=== PATIENT | female | born 2000 | race Caucasian/White ===

== ENCOUNTER 2022-12-10 16:27 | Emergency (ER) | payer OTHER, SELFPAY ==
--- NOTE | 2022-12-10 16:29 | ED.URI ---
HPI - URI/Sore Throat General Chief Complaint: Nausea/Vomiting/Diarrhea Stated Complaint: nausea,headache,upper stomach hurts Time Seen by Provider: 12/10/22 16:44 Source: patient and RN notes reviewed Mode of arrival: ambulatory Limitations: no limitations History of Present Illness HPI Narrative: 22-year-old female presents concern for headache, nausea without vomiting, epigastric discomfort. She also reports sore throat and runny nose. She reports coworkers are ill. She reports she is 9 weeks with twins, she has had issues with nausea and acid reflux, she has medications prescribed for both. She denies any significant change in her epigastric pain or nausea. She denies vomiting, diarrhea. She is concerned about working well . MD elicited complaint: sore throat Related Data Home Medications Medication Instructions Recorded Confirmed famotidine 20 mg tablet 20 mg PO DAILY 12/10/22 12/10/22 promethazine 12.5 mg tablet 12.5 mg PO DIRECTED 12/10/22 12/10/22 Allergies Allergy/AdvReac Type Severity Reaction Status Date / Time morphine Allergy Rash Verified 12/10/22 16:33 Review of Systems Review of Systems: CONSTITUTIONAL: Denies malaise, chills, sweats, or fever. EYES: Denies visual changes, redness, or discharge. ENT: Reports rhinorrhea, sore throat. Denies congestion, sinus pain, otalgia CARDIOVASCULAR: Denies chest pain, palpitations, or edema. RESPIRATORY: Denies cough. Denies dyspnea. GASTROINTESTINAL: Denies abdominal pain, vomiting, diarrhea. Reports nausea epigastric discomfort SKIN: Denies rash or itching. MUSCULOSKELETAL: Denies myalgia. NEUROLOGIC: Reports headache. All systems reviewed & are unremarkable except as noted in HPI and below PMFSH Past Medical History Medical History Asthma Bronchitis Depression Gastritis Smoker Surgical History Surgical History H/O laparoscopy RT ovary had to be fixed per Marianne History of esophagogastroduodenoscopy (EGD) Family History Family History Father , Heart problems Heart disease Mother Alive and well Social History Social History Years smoked: 4 Smoking status: Current every day smoker Tobacco type: cigarettes Second hand tobacco smoke exposure: No Alcohol intake: current Substance use: never Substance use type: does not use Living arrangements: with family Occupation/Education: occupation Gender identity (if verbalized by the patient): Female Comments At time of signature, agree with nursing past medical, surgical, social and family history. There is no relevant family history pertinent to the presenting complaint Exam Narrative: GENERAL: Well-appearing, well-nourished, and in no acute distress. HEAD: Normocephalic EYES: PERRLA, conjunctivae clear ENT: Nares clear, clear discharge. Mucous membranes moist. TM pearly chamorro with sharp light reflex bilaterally; no tragal tenderness. Oropharynx not erythematous without lesions. Tonsils not enlarged and without exudate, no drooling, no hoarseness, no trismus, uvula midline. NECK: Supple. No lymphadenopathy CHEST: Clear to auscultation, breath sounds equal. No wheezing, rhonchi, rales, or stridor. No respiratory distress, speaks in full sentences. HEART: Regular rate and rhythm. No murmur heard. SKIN: Warm, dry, no rash. NEURO: Alert and oriented x3. PSYCH: Normal mood and affect Course Course Emergency Course: Patient is aware of diagnosis, understands and agrees to treatment plan. Anticipatory guidance given. Patient agrees to follow-up as directed and is aware of reasons to seek care at the emergency department. Portions of this record may have been created with voice recognition software Level of Care: Express Care Visit Vital Signs Vital signs: Reviewed. CHERYLE - JUAN JOSE
[2022-12-10 16:37] VITALS: BP 119/64; PULSE 81; RESP 16; TEMP 36.4; O2SAT 100
== END 2022-12-10 17:03 | disposition home or self-care (01) ==
PROVIDERS: Emergency Provider Nurse Practitioner
DX: O26.891 Other specified pregnancy related conditions, first trimester (principal); R11.0 Nausea; O99.331 Smoking (tobacco) complicating pregnancy, first trimester; F17.210 Nicotine dependence, cigarettes, uncomplicated; Z3A.09 9 weeks gestation of pregnancy
CPT/HCPCS: 87081; 87880; 99213; G0463

== ENCOUNTER 2023-04-12 21:25 | Emergency (ER) | payer OTHER, SELFPAY ==
[2023-04-12 21:37] VITALS: BP 121/58; PULSE 100; RESP 20; TEMP 37.2; O2SAT 99
[2023-04-12 22:00] VITALS: BP 118/60; PULSE 97; RESP 18; O2SAT 100
--- NOTE | 2023-04-12 22:00 | PC.NURSE ---
Pt decided she wanted to leave and go to where her OB Dr Main is at [place] after eval by Dr White. Pt wanting to sign AMA and go have testing and any needed procedures done there. ERP explained risks/benefits to pt. This RN explained risks/benefits as well to pt. and she still wants to leave to go to [place] for testing. Pt did sign HIV form refusal as she states she already had that test at her OB Dr office.
--- NOTE | 2023-04-12 22:05 | PC.NURSE ---
Pt left ambulatory c S.O. and stated she would go directly to [place] for checkup. Pt has steady gait at d/c and no c/o, VSS.
--- NOTE | 2023-04-12 22:09 | ED.FEMALEGU ---
HPI - Female Genitourinary General Chief complaint: OB/Uterine Contractions Stated complaint: 27 wk , spotting, blurred vision Time Seen by Provider: 04/12/23 21:57 Source: patient and family Mode of arrival: ambulatory Limitations: no limitations History of Present Illness HPI Narrative: this is a 22-year-old female that presents with some headache and is 27 weeks with twins and heart tones elicited, there is no abdominal pain patient notes some crampy with spotting. She does have a headache and some blurry vision blood pressure is 121/58 otherwise no chest pain no shortness of breath no dysuria no fever chills Related Data Home Medications Medication Instructions Recorded Confirmed famotidine 10 mg tablet 10 mg PO DAILY 04/12/23 04/12/23 prenat.vits,kelly,[id number] 1 tablet PO DAILY 04/12/23 04/12/23 sertraline 50 mg tablet 50 mg PO DAILY 04/12/23 04/12/23 Allergies Allergy/AdvReac Type Severity Reaction Status Date / Time morphine Allergy Unknown Verified 04/12/23 21:37 Review of Systems Review of Systems: All systems reviewed & are unremarkable except as noted in HPI and below PMFSH Past Medical History Medical History 27 weeks gestation of Exam Const: General: healthy appearing Nutritional Appearance: well nourished Neck: Neck: normal visual inspection Chest: Chest palpation & inspection: normal inspection of the chest Resp: Effort & Inspection: normal respiratory effort Auscultation: clear to auscultation bilaterally Cardio: Rate: regular rate Rhythm: regular rhythm GI: GI Palp: Yes Soft to palpation : General: Yes bladder normal to palpation Skin: General skin exam: normal color Rashes: no rashes Wounds: no wounds Neuro: General: patient oriented x3 and moves all extremities Cranial nerves: Yes Nystagmus not present Speech: normal speech Extrem: General: normal to inspection Psych: Appearance: grossly normal Mental Status: mental status grossly normal Course Course Emergency Course: patient willing to sign out against medical advice and wants to go to [place] where her OBGYN is located. Vital Signs Vital signs: Vital Signs Temperature 37.2 C 04/12/23 21:37 Pulse Rate 100 04/12/23 21:37 Respiratory Rate 20 04/12/23 21:37 Blood Pressure 121/58 L 04/12/23 21:37 Pulse Oximetry 99 04/12/23 21:37 Oxygen Delivery Room Air 04/12/23 21:37 Temperature 37.2 C 04/12/23 21:37 Pulse Rate 100 04/12/23 21:37 Respiratory Rate 20 04/12/23 21:37 Blood Pressure 121/58 L 04/12/23 21:37 Pulse Oximetry 99 04/12/23 21:37 Oxygen Delivery Room Air 04/12/23 21:37 Critical Care Time Critical Care Time Critical Care Time: No Discharge Plan Discharge Clinical Impression: Vaginal spotting Headache Qualifiers: Headache type: other headache syndrome Qualified Code(s): G44.89 - Other headache syndrome Condition: Stable Prescriptions: No Action famotidine 10 mg Tablet 10 mg PO DAILY sertraline 50 mg Tablet 50 mg PO DAILY Vitamin Tablet 1 tablet PO DAILY Follow-up/Referrals: UNKNOWN,DOCTOR [Non-Staff] - Time of Disposition: 22:13
== END 2023-04-12 22:05 | disposition left against medical advice (07) ==
PROVIDERS: Emergency Provider Emergency Medicine; PCP Obstetrics & Gynecology
DX: O46.92 Antepartum hemorrhage, unspecified, second trimester (principal); O26.892 Other specified pregnancy related conditions, second trimester; G44.89 Other headache syndrome; Z3A.27 27 weeks gestation of pregnancy
CPT/HCPCS: 99281

== ENCOUNTER 2023-04-12 22:49 | Observation (INO) | payer OTHER, SELFPAY ==
[2023-04-12] VITALS (12 sets, daily range): BP systolic 109–117; BP diastolic 61–71; PULSE 78–98; O2SAT 98–100; BMI 28.0
--- NOTE | 2023-04-12 23:19 | OBADM ---
This patient, Marianne Fox, admitted to the OB room OB Post 116 for observation. Patient/family oriented to hospital policies and general routines including ID bracelet, bed and alarms, visiting hours, pain management, procedures, bathroom and other care routines, personal items, smoking policy, room service/diet, and visiting hours. Patient/Family are encouraged to report perceived risks to care and to ask questions if they do not understand what they are told or what they should do.
[2023-04-13 00:11] LABS: Appearance Urine Clear (Clear); Bacteria Urine None Seen /hpf; Bilirubin Urine Negative (Negative); Blood Urine 1+ (Negative); Color Urine Yellow (Yellow); Glucose Urine UA Negative (Negative); Ketones Urine Negative (Negative); Leukocyte Esterase Ur 2+ LEU/UL (Negative); Nitrate Urine Negative (Negative); Non Pathogenic Casts 0-2; Protein Urine Negative (Negative); RBC Urine 0-2 /hpf (0-2); Specific Grav Ur 1.014 (1.001-1.035); Squamous Epithelial Cell Urine Few /hpf (Few)
[2023-04-13 00:17] LABS: Add Urine Microscopic? YES
--- NOTE | 2023-04-13 00:18 | PC.NURSE ---
Dr Snyder called via senior grant writer and informed of patient arrival after being seen in [facility] with c/o headache, spotting, and blurred vision. Vital signs stable, CAT1 tracings from fetus A and B, and UA results given to provider. Patient stated headache was 5-6/10 on arrival and now rates it 2/10 and has no spotting at this time. Orders to discharge patient home with macrobid 100mg BID x7 days and to keep regularly scheduled appointment with Dr. Main.
[2023-04-13] MEDS: NITROFURANTOIN MONOHYD MACROCR 100 MG CAP PO (00:44)
--- NOTE | 2023-05-06 23:12 | PM.OBTRLD ---
OB - Triage/Final Diagnosis Visit Information Comments/Additional reasons for admission: I have assessed the risk for this patient, Marianne Fox, and determined that she would benefit from observation care. Evaluation Laboratory results: Laboratory Tests 04/12/23 23:36 Urine Color Yellow Urine Appearance Clear Urine pH 7.0 Ur Specific Porter 1.014 Urine Protein Negative Urine Glucose (UA) Negative Urine Ketones Negative Ur Blood (Man) 1+ H Urine Nitrate Negative Urine Bilirubin Negative Urine Urobilinogen 1.0 Leukocyte Esterase Rfl 2+ H Urine RBC 0-2 Urine WBC 11-20 H Ur Squamous Epith Cells Few Urine Bacteria None seen Urine Casts 0-2 Final Diagnosis (1) Vaginal bleeding: Code(s): N93.9 - Abnormal uterine and vaginal bleeding, unspecified Status: Acute
== END 2023-04-13 00:38 | disposition home or self-care (01) ==
PROVIDERS: Obstetrics & Gynecology; Admitting Provider Obstetrics & Gynecology; Visit Provider Obstetrics & Gynecology
DX: O46.92 Antepartum hemorrhage, unspecified, second trimester (principal); N93.9 Abnormal uterine and vaginal bleeding, unspecified; Z3A.27 27 weeks gestation of pregnancy
CPT/HCPCS: 81001; 87086; A9270; G0378; G0379

== ENCOUNTER 2023-04-23 17:22 | Observation (INO) | payer OTHER, MEDICAID, SELFPAY ==
[2023-04-23] VITALS (13 sets, daily range): BP systolic 109; BP diastolic 62; PULSE 90–106; O2SAT 98–100
[2023-04-23] MEDS: NIFEdipine 30 MG TAB.ER.24 PO (18:38)
[2023-04-23] MEDS: TERBUTALINE SULFATE 1 MG/ML VIAL 0.25 MG SUB-Q (18:39)
--- NOTE | 2023-04-23 20:24 | OBADM ---
This patient, Marianne Fox, admitted to the OB room OB Post 113 for observation. Patient/family oriented to hospital policies and general routines including ID bracelet, bed and alarms, visiting hours, pain management, procedures, bathroom and other care routines, personal items, smoking policy, room service/diet, and visiting hours. Patient/Family are encouraged to report perceived risks to care and to ask questions if they do not understand what they are told or what they should do.
--- NOTE | 2023-05-17 08:35 | PM.OBTRLD ---
OB - Triage/Final Diagnosis Visit Information Comments/Additional reasons for admission: I have assessed the risk for this patient, Marianne Fox, and determined that she would benefit from observation care. Final Diagnosis (1) Spotting: Code(s): N92.0 - Excessive and frequent menstruation with regular cycle Status: Acute
== END 2023-04-23 20:37 | disposition home or self-care (01) ==
PROVIDERS: Admitting Provider Obstetrics & Gynecology; Visit Provider Obstetrics & Gynecology
DX: O26.853 Spotting complicating pregnancy, third trimester (principal); Z3A.29 29 weeks gestation of pregnancy
CPT/HCPCS: 96372; A9270; G0378; G0379; J3105

== ENCOUNTER 2023-04-24 13:31 | Observation (INO) | payer OTHER, SELFPAY ==
[2023-04-24 13:50] VITALS: BP 112/66; PULSE 116
[2023-04-24 14:00] VITALS: BP 113/68; PULSE 91
[2023-04-24 14:15] VITALS: BP 114/67; PULSE 105
[2023-04-24] MEDS: TERBUTALINE SULFATE 1 MG/ML VIAL 0.25 MG SUB-Q (14:24)
[2023-04-24 14:40] VITALS: BMI 31.2
[2023-04-24 14:56] LABS: Appearance Urine Cloudy (Clear); Bacteria Urine 1+ /hpf; Bilirubin Urine Negative (Negative); Color Urine Yellow (Yellow); Glucose Urine UA Negative (Negative); Ketones Urine Negative (Negative); Leukocyte Esterase Ur 3+ LEU/UL (NEGATIVE); Need Manual Microscopic Reviewed; Nitrate Urine Negative (Negative); Non Pathogenic Casts 0-2; Protein Urine Negative (Negative); RBC Urine 0-2 /hpf (0-2); Specific Grav Ur 1.007 (1.001-1.035); Squamous Epithelial Cell Urine Many /hpf (Few); Urobilinogen Urine 0.2 mg/dL (<2.0); WBC Urine >100 /hpf (0-3); pH Urine 7.5 (5.0-9.0)
[2023-04-24 15:00] LABS: Add Urine Microscopic? YES
[2023-04-24 15:45] LABS: Fetal Fibronectin Negative
[2023-04-24] MEDS: FLUCONAZOLE 100 MG TABLET PO (16:04)
--- NOTE | 2023-04-30 08:18 | P.PNOB_ITS ---
OB - Triage/Final Diagnosis Visit Information Comments/Additional reasons for admission: I have assessed the risk for this patient, Marianne Fox, and determined that she would benefit from observation care. Evaluation Laboratory results: Laboratory Tests 04/24/23 14:22 Urine Color Yellow Urine Appearance Cloudy H Urine pH 7.5 Ur Specific Franklin 1.007 Urine Protein Negative Urine Glucose (UA) Negative Urine Ketones Negative Ur Blood (Man) Non-hemolyzed trace Urine Nitrate Negative Urine Bilirubin Negative Urine Urobilinogen 0.2 Ur Leukocyte Esterase 3+ H Add Ur Microanalysis Reviewed Urine RBC 0-2 Urine WBC >100 H Ur Squamous Epith Cells Many H Urine Bacteria 1+ H Urine Casts 0-2 Fibronectin Negative Final Diagnosis (1) Twin : Code(s): O30.009 - Twin , unspecified number of placenta and unspecified number of amniotic sacs, unspecified trimester Status: Acute (2) contractions: Code(s): O47.00 - False labor before 37 completed weeks of gestation, unspecified trimester Status: Acute
== END 2023-04-24 16:10 | disposition home or self-care (01) ==
PROVIDERS: Admitting Provider Obstetrics & Gynecology; Visit Provider Obstetrics & Gynecology
DX: O30.003 Twin pregnancy, unspecified number of placenta and unspecified number of amniotic sacs, third trimester (principal); O47.03 False labor before 37 completed weeks of gestation, third trimester; Z3A.29 29 weeks gestation of pregnancy
CPT/HCPCS: 81001; 82731; 87086; 96372; A9270; G0378; G0379; J3105

== ENCOUNTER 2023-05-04 07:41 | Outpatient (CLI) | payer OTHER, SELFPAY ==
[2023-05-04 08:15] VITALS: BP 113/69; PULSE 97
[2023-05-04 08:52] LABS: Appearance Urine Turbid (Clear); Bacteria Urine 1+ /hpf; Bilirubin Urine Negative (Negative); Blood Urine Negative (Negative); Color Urine Yellow (Yellow); Glucose Urine UA Negative (Negative); Ketones Urine Negative (Negative); Leukocyte Esterase Ur 3+ LEU/UL (NEGATIVE); Nitrate Urine Negative (Negative); Non Pathogenic Casts 0-2; Protein Urine Negative (Negative); RBC Urine 0-2 /hpf (0-2); Squamous Epithelial Cell Urine Moderate /hpf (Few); Urobilinogen Urine 0.2 mg/dL (<2.0); WBC Urine 51-100 /hpf (0-3)
[2023-05-04 09:08] LABS: Add Urine Microscopic? YES
--- NOTE | 2023-05-04 09:12 | PC.NURSE ---
Dr Snyder notified of neg rom plus results, occa contractions with some uterine irritability, reassuring fht's and UA results, Ok to DC home with RX for Macrobid.
== END 2023-05-04 09:20 | disposition home or self-care (01) ==
LOC: ANHOBOP 07:47 → ANHOBPP 07:49
PROVIDERS: Obstetrics & Gynecology; Visit Provider Obstetrics & Gynecology
DX: O41.90X0 Disorder of amniotic fluid and membranes, unspecified, unspecified trimester, not applicable or unspecified (principal); Z3A.00 Weeks of gestation of pregnancy not specified
CPT/HCPCS: 59025; 81001; 84112; 87086; 99199

== ENCOUNTER 2023-05-09 13:15 | Emergency (ER) | payer OTHER, SELFPAY ==
[2023-05-09 13:15] VITALS: BP 128/74; PULSE 85; RESP 20; TEMP 36.8; O2SAT 100
--- NOTE | 2023-05-09 13:41 | ED.GENADULT ---
HPI - General Adult General Chief complaint: Extremity Problem,Nontraumatic Stated complaint: hip pain Time Seen by Provider: 05/09/23 13:30 Source: patient Mode of arrival: ambulatory Limitations: no limitations History of Present Illness HPI narrative: 22-year-old female A0, 31 weeks with twins presents to the ER with -- right hip pain -- pain in right lateral thigh no trauma the patient has had routine checkups including an ultrasound which have been unremarkable. Onset (ago): day(s) Location: right and lower extremity Radiation: non-radiation Severity: mild Quality: aching Pain Consistency: constant Relieving factors: none Exacerbating factors: movement Associated symptoms: denies other symptoms Treatments prior to arrival: none Related Data Home Medications Medication Instructions Recorded Confirmed famotidine 10 mg tablet 10 mg PO DAILY 04/12/23 05/09/23 prenat.vits,kelly,iad-inyc-vrwnz 1 tablet PO DAILY 04/12/23 05/09/23 sertraline 50 mg tablet 50 mg PO DAILY 04/12/23 05/09/23 Allergies Allergy/AdvReac Type Severity Reaction Status Date / Time morphine AdvReac Nausea Verified 05/09/23 13:23 Review of Systems Review of Systems: All systems reviewed & are unremarkable except as noted in HPI and below Constitutional: Constitutional: Reports as per HPI and Reports no additional constitutional complaints Eyes: Eyes: Reports as per HPI and Reports no additional eye complaints ENT: Reports system reviewed and no additional complaints, except as documented and Reports as per HPI Cardiovascular: Cardiovascular: Reports as per HPI and Reports no additional cardiovascular complaints Respiratory: Respiratory: Reports as per HPI and Reports no additional respiratory complaints Gastrointestinal: Gastrointestinal: Reports as per HPI and Reports no additional gastrointestinal complaints Genitourinary: Genitourinary: Reports no additional female genitourinary complaints and Reports as per HPI Musculoskeletal: Musculoskeletal: Reports no additional musculoskeletal complaints and Reports as per HPI Integumentary/Breasts: Skin/Breast: Reports system reviewed and no additional complaints, except as docu and Reports as per HPI Neurologic: Reports system reviewed and no additional complaints, except as documented and Reports as per HPI Psychiatric: Psychiatric: Reports no additional psychiatric complaints and Reports as per HPI Endocrine: Endocrine: Reports no additional endocrine complaints and Reports as per HPI Hematologic/Lymphatic: Hematologic/Lymphatic: Reports no additional hematologic/lymphatic complaints and Reports as per HPI Allergic/Immunologic: Allergic/Immunologic: Reports no additional allergic/immunologic complaints and Reports as per HPI [facility] Past Medical History Medical History 27 weeks gestation of Exam Const: General: cooperative and comfortable HENMT: Head: normal to inspection, normocephalic and atraumatic Ears: hearing grossly normal bilaterally Face/Nose/Sinus: Normal external nose present Face and sinus: normal facial exam Mouth: Yes Normal oral and palatal mucosa present and Yes tongue normal Teeth and gingiva: dentition normal and gingiva normal Throat: posterior oropharynx normal Eyes: General: appearance normal, both eyes and all related structures Visual Preston: normal visual preston by confrontation Alignment and Position: position normal Eyelids: eyelids normal Conjunctivae: conjunctivae normal Sclera: sclerae normal Cornea: corneas normal Pupils: Equal, round and reactive pupils present Neck: Neck: normal visual inspection and full ROM Chest: Chest palpation & inspection: normal inspection of the chest Resp: Effort & Inspection: normal respiratory effort Auscultation: clear to auscultation bilaterally Cardio: Jugular venous distension: no JVD Palpation: normal PMI Rate: regular
--- NOTE | 2023-05-09 13:47 | PC.NURSE ---
HEART TONES OBTAINED ON BOTH BABY 1 AND BABY 2. BOTH ARE ACTIVE AND MOVING. MOTHER SIGNS REFUSAL OF HIV TESTING.
[2023-05-09 13:56] LABS: Appearance Urine Clear (Clear); Bilirubin Urine Negative (Negative); Blood Urine 1+ (Negative); Color Urine Light Yellow (Yellow); Glucose Urine UA Negative (Negative); Ketones Urine Negative (Negative); Leukocyte Esterase Ur 3+ LEU/UL (Negative); Nitrate Urine Negative (Negative); Protein Urine Negative (Negative); Urobilinogen Urine 0.2 mg/dL (0.2-1.0); pH Urine 7.5 (5.0-8.0)
[2023-05-09 14:02] LABS: Add Urine Microscopic? YES
[2023-05-09 14:03] LABS: Bacteria Urine 2+ /hpf; Squamous Epithelial Cell Urine Moderate /hpf (Few); WBC Urine 16-20 /hpf (0-3)
--- NOTE | 2023-05-11 13:58 | PC.NURSE ---
URINE CULTURE REVIEWED, NO GROWTH NOTED. NO ACTION NEEDED
== END 2023-05-09 14:15 | disposition home or self-care (01) ==
PROVIDERS: Emergency Provider Internal Medicine Critical Care Medicine; PCP Obstetrics & Gynecology
DX: O30.003 Twin pregnancy, unspecified number of placenta and unspecified number of amniotic sacs, third trimester (principal); O26.893 Other specified pregnancy related conditions, third trimester; G57.11 Meralgia paresthetica, right lower limb; R60.0 Localized edema; M25.551 Pain in right hip; Z3A.31 31 weeks gestation of pregnancy; Z79.899 Other long term (current) drug therapy
CPT/HCPCS: 81001; 87086; 99283

== ENCOUNTER 2023-05-11 14:26 | Outpatient (CLI) | payer OTHER, SELFPAY ==
[2023-05-11 14:55] VITALS: BP 106/65; PULSE 91
[2023-05-11 15:00] VITALS: BP 102/69; PULSE 89
[2023-05-11 15:15] VITALS: BP 101/65; PULSE 93
[2023-05-11 15:30] VITALS: BP 104/58; PULSE 90
[2023-05-11 15:45] VITALS: BP 115/65; PULSE 89
--- NOTE | 2023-05-11 15:50 | PC.NURSE ---
1540: RN phone Dr. Main RN reported Blood pressures, patient's complaints of headache, blurred vision, and high BP at home with wrist cuff. Order discharge patient home with instructions to take Tylenol at home for headache and with instructions on when to return to the hospital
[2023-05-11 16:20] VITALS: BP 106/65; PULSE 88
== END 2023-05-11 16:00 | disposition home or self-care (01) ==
LOC: ANHOBOP 14:33 → ANHOBPP 14:34
PROVIDERS: Visit Provider Obstetrics & Gynecology
DX: O13.9 Gestational [pregnancy-induced] hypertension without significant proteinuria, unspecified trimester (principal)
CPT/HCPCS: 59025; 99199

== ENCOUNTER 2023-05-13 11:06 | Outpatient (CLI) | payer OTHER, MEDICAID, SELFPAY ==
--- NOTE | 2023-05-13 11:06 | OBADM ---
This patient, Marianne Fox, admitted to the OB room Labor/Delivery/Recovery 106 for observation. Patient/family oriented to hospital policies and general routines including ID bracelet, bed and alarms, visiting hours, pain management, procedures, bathroom and other care routines, personal items, smoking policy, room service/diet, and visiting hours. Patient/Family are encouraged to report perceived risks to care and to ask questions if they do not understand what they are told or what they should do.
[2023-05-13 11:34] VITALS: BP 120/73; PULSE 111
[2023-05-13 12:07] LABS: Appearance Urine Cloudy (Clear); Bacteria Urine None Seen /hpf; Bilirubin Urine Negative (Negative); Blood Urine Trace (Negative); Color Urine Yellow (Yellow); Glucose Urine UA Negative (Negative); Ketones Urine Negative (Negative); Leukocyte Esterase Ur 3+ LEU/UL (Negative); Nitrate Urine Negative (Negative); Non Pathogenic Casts 0-2; Protein Urine Negative (Negative); RBC Urine 0-2 /hpf (0-2); Specific Grav Ur 1.009 (1.001-1.035); Squamous Epithelial Cell Urine Moderate /hpf (Few); Urobilinogen Urine 0.2 mg/dL (<2.0); WBC Urine 21-50 /hpf; pH Urine 7.5 (5.0-9.0)
[2023-05-13 12:15] LABS: Add Urine Microscopic? YES
--- NOTE | 2023-05-13 12:48 | PC.NURSE ---
Carrie updated on this pt. Urine sent and reported to provider. CNM order LR bolus and 2g Rocephin IV. SVE and updated provider once completed.
[2023-05-13] MEDS: LACTATED RINGERS 1,000 ML 999 ML IV CONT (13:13)
[2023-05-13] MEDS: cefTRIAXone 2 GM/NS 100 ML 2 GM/100 ML BAG IVPB (13:36)
[2023-05-13 13:46] VITALS: BMI 29.5
[2023-05-13 14:34] VITALS: BP 114/60; PULSE 83
[2023-05-13] MEDS: NIFEdipine 30 MG TAB.ER.24 PO (14:42)
--- NOTE | 2023-05-13 15:41 | PC.NURSE ---
CNM on the unit reviewing tracing and uterine activity. Pt requesting to go home. Discharge order received. Pt instructed to drink more water, rest and take medication if needed.
== END 2023-05-13 15:56 | disposition home or self-care (01) ==
LOC: ANHLDR 15:42 → ANHOBOP 05-14 10:41 → ANHLDR 05-14 10:41
PROVIDERS: Advanced Practice Midwife; Visit Provider Obstetrics & Gynecology
DX: O42.90 Premature rupture of membranes, unspecified as to length of time between rupture and onset of labor, unspecified weeks of gestation (principal)
CPT/HCPCS: 81001; 84112; 87086; 96374; 99199; A9270; J0696; J7120

== ENCOUNTER 2023-05-17 20:39 | Outpatient (CLI) | payer OTHER, SELFPAY ==
[2023-05-17 21:14] VITALS: BP 117/71; PULSE 96
[2023-05-17 21:16] VITALS: BP 118/59; PULSE 89
[2023-05-17 21:30] VITALS: BP 106/63; PULSE 87
== END 2023-05-17 22:20 | disposition home or self-care (01) ==
LOC: ANHOBOP 21:02 → ANHLDR 21:02
PROVIDERS: Visit Provider Obstetrics & Gynecology
DX: O42.913 Preterm premature rupture of membranes, unspecified as to length of time between rupture and onset of labor, third trimester (principal); Z3A.34 34 weeks gestation of pregnancy
CPT/HCPCS: 59025; 84112; 99199

== ENCOUNTER 2023-05-21 23:10 | Observation (INO) | payer OTHER, SELFPAY ==
[2023-05-21] VITALS (8 sets, daily range): BP systolic 120–132; BP diastolic 73–76; PULSE 72–87; O2SAT 99–100
[2023-05-21] MEDS: DEXTROSE 5%/LACTATED RINGERS 1,000 ML 100 ML IV CONT (23:40)
[2023-05-21] MEDS: TERBUTALINE SULFATE 1 MG/ML VIAL 0.25 MG SUB-Q (23:42)
[2023-05-22] VITALS (36 sets, daily range): BP systolic 113–136; BP diastolic 62–86; PULSE 70–134; TEMP 36.3; O2SAT 98–100; BMI 32.2
[2023-05-22] MEDS: NIFEdipine 10 MG CAPSULE 30 MG PO (00:55)
[2023-05-22] MEDS: TERBUTALINE SULFATE 1 MG/ML VIAL 0.25 MG SUB-Q (00:56)
[2023-05-22] MEDS: MAGNESIUM SULF 6 GM/WATER150ML 6 GM/150 ML BAG IVPB (02:51)
[2023-05-22] MEDS: LACTATED RINGERS 1,000 ML 75 ML IV CONT (02:52)
[2023-05-22] MEDS: MAGNESIUM SULF 20GM/WATER500ML 500 ML 50 MG IV CONT ×2 (03:24→10:42)
--- NOTE | 2023-05-22 08:35 | PM.IMHP ---
H&P: HPI History of Present Illness Date/Time: 05/22/23 08:35 Chief Complaint: Painful contractions Narrative: this patient is a 22-year-old 2 para 0010 at 33 weeks and 1 day gestation with twins. The twins are dichorionic diamniotic. Her was complicated by a Previous delivery, HSV 1 , asthma, anemia, anxiety, electronic cigarette use. It is now complicated by labor. She presented with painful contractions that became progressively closer together. Patient was initially resistant to any treatment and wanted to be transferred. She was a considered unstable at that time. Ultimately she agreed to shots of terbutaline and then subsequently magnesium sulfate. She did show cervical change. She was initially 1 cm became two and more effaced. She is receiving a dose of steroids this morning at this time , 05/22/2023 at 0838. She is on continuous Mag at 2 g an hour and received a bolus of 6 g. the plan has been to perform repeat on the patient. She is known to [facility], she has been receiving high risk care from [facility] at [facility] . she will be transferred to [facility]. Review of Systems Review of Systems: All systems reviewed & are unremarkable except as noted in HPI and below Constitutional: Constitutional: Denies chills, Denies fatigue, Denies fever(s) and Denies weakness Eyes: Eyes: Denies blurry vision, Denies change in vision, Denies loss of peripheral vision, Denies loss of vision, Denies other visual disturbances and Denies eye pain ENT: Denies vertigo, Denies dizziness, Denies hearing loss, Denies mouth pain, Denies nasal obstruction, Denies neck mass and Denies neck pain Cardiovascular: Cardiovascular: Denies chest pain, Denies diaphoresis, Denies syncope, Denies leg edema and Denies dyspnea Respiratory: Respiratory: Denies chest congestion, Denies cough, Denies hemoptysis, Denies dyspnea and Denies wheezing Gastrointestinal: Gastrointestinal: Denies abdominal pain, Denies constipation, Denies diarrhea, Denies nausea and Denies vomiting Genitourinary: Genitourinary: Denies hematuria, Denies change in libido, Denies nocturia, Denies genital lesions, Denies flank pain and Denies urinary urgency Musculoskeletal: Musculoskeletal: Denies abnormal gait, Denies back pain, Denies myalgias, Denies arthralgias, Denies joint swelling, Denies muscle weakness and Denies neck pain Integumentary/Breasts: Skin/Breast: Denies swelling, Denies breast pain, Denies breast mass, Denies dry skin, Denies nipple discharge, Denies unusual bruising and Denies jaundice Neurologic: Denies Neuro-related abnormal movements, Denies Abnormal speech present, Denies abnormal gait, Denies behavioral changes, Denies confusion, Denies vertigo, Denies dizziness, Denies syncope, Denies loss of vision, Denies memory loss, Denies convulsions and Denies weakness Psychiatric: Psychiatric: Denies abnormal sleep pattern, Denies behavioral changes, Denies change in libido, Denies confusion, Denies depression, Denies anhedonia and Denies memory loss Endocrine: Endocrine: Reports no additional endocrine complaints, Denies change in libido and Denies fatigue Hematologic/Lymphatic: Hematologic/Lymphatic: Reports no additional hematologic/lymphatic complaints Allergic/Immunologic: Allergic/Immunologic: Reports no additional allergic/immunologic complaints and Denies wheezing PMFSH Past Medical History Medical History 27 weeks gestation of Meds Home Medications and Allergies Home Medications Medication Instructions Recorded Confirmed Type famotidine 10 mg tablet 10 mg PO DAILY 04/12/23 05/22/23 History prenat.vits,kelly,qqe-[id number] 1 tablet PO DAILY 04/12/23 05/22/23 History sertraline 50 mg tablet 50 mg PO DAILY 04/12/23 05/22/23 History Allergies Allergy/AdvReac Type Severity Reaction Status Date / Time morphine AdvReac Nausea Verified 05/09/23 1
[2023-05-22] MEDS: ACETAMINOPHEN 325 MG TABLET 650 MG (08:37)
[2023-05-22] MEDS: CALCIUM CARBONATE (TUMS) 500 MG (200 MG ELEMENTAL) PO (08:37)
[2023-05-22] MEDS: BETAMETHASONE SOD PHOS/ACETATE 30 MG/5 ML VIAL 12 MG IM (08:37)
--- NOTE | 2023-06-10 21:02 | PM.OBTRLD ---
OB - Triage/Final Diagnosis Visit Information Comments/Additional reasons for admission: I have assessed the risk for this patient, Marianne Fox, and determined that she would benefit from observation care. Final Diagnosis (1) Anxiety: Code(s): F41.9 - Anxiety disorder, unspecified Status: Acute
== END 2023-05-22 10:52 | disposition short-term general hospital (02) ==
PROVIDERS: Admitting Provider Obstetrics & Gynecology; Visit Provider Obstetrics & Gynecology
DX: O60.03 Preterm labor without delivery, third trimester (principal); O30.043 Twin pregnancy, dichorionic/diamniotic, third trimester; O98.313 Other infections with a predominantly sexual mode of transmission complicating pregnancy, third trimester; O99.513 Diseases of the respiratory system complicating pregnancy, third trimester; B00.9 Herpesviral infection, unspecified; J45.909 Unspecified asthma, uncomplicated; O99.343 Other mental disorders complicating pregnancy, third trimester; F41.9 Anxiety disorder, unspecified; Z3A.33 33 weeks gestation of pregnancy
CPT/HCPCS: 96365; 96366; 96372; 96375; A9270; G0378; G0379; J0702; J3105; J3475; J7120; J7121

== ENCOUNTER 2023-05-25 07:53 | Observation (INO) | payer OTHER, SELFPAY ==
[2023-05-25] VITALS (86 sets, daily range): BP systolic 92–136; BP diastolic 39–83; PULSE 60–97; RESP 18–22; TEMP 36.6–37.3; O2SAT 96–100; BMI 34.0
--- NOTE | 2023-05-25 08:39 | OBADM ---
This patient, Marianne Fox, admitted to the OB room Labor/Delivery/Recovery 108 for observation for contractions. Patient/family oriented to hospital policies and general routines including ID bracelet, bed and alarms, visiting hours, pain management, procedures, bathroom and other care routines, personal items, smoking policy, room service/diet, and visiting hours. Patient/Family are encouraged to report perceived risks to care and to ask questions if they do not understand what they are told or what they should do.
[2023-05-25] MEDS: LACTATED RINGERS 1,000 ML 75 ML IV CONT (09:15)
[2023-05-25] MEDS: MAGNESIUM SULF 4 GM/WATER100ML 4 GM/100 ML BAG IVPB (09:19)
[2023-05-25] MEDS: AMPICILLIN 2 GM/NS 100 ML 2 GM/100 ML BAG IVPB (09:22)
[2023-05-25 09:29] LABS: Basophils Absolute Auto 0.1 K/mm3 (0.0-0.1); Basophils Percent Auto 0.8 % (0.2-1.2); Eosinophils Absolute Auto 0.1 K/mm3 (0-0.3); Eosinophils Percent Auto 0.4 % (0-4.4); Hematocrit 30.9 % (37.0-47.0); Hemoglobin 9.6 g/dL (12.0-15.0); Immature Granulocyte Absolute 1.06 K/mm3 (0.00-0.031); Immature Granulocyte Percent A 5.8 % (0-0.5); Lymphocytes Absolute Auto 2.76 K/mm3 (0.9-3.2); Lymphocytes Percent Auto 15.1 % (18.3-44.2); Mean Corpuscular HGB Conc 31.1 g/dl (32-36); Mean Corpuscular Hemoglobin 26.4 pg (26-34); Mean Corpuscular Volume 85.1 fl (80-100); Mean Platelet Volume 11.4 fl (7.4-10.4); Monocytes Absolute Auto 1.6 K/mm3 (0.1-0.6); Monocytes Percent Auto 8.7 % (2.6-8.5); Neutrophils Absolute Auto 12.6 K/mm3 (1.3-6.7); Neutrophils Percent Auto 69.2 % (45.5-73.1); Nucleated Red Blood Cells Absolute Auto 0.1 K/mm3 (0.0-0.012); Nucleated Red Blood Cells Perc 0.5 % (0.0-0.2); Platelet Count Result 146 k/mm3 (150-375); Red Blood Count 3.63 M/mm3 (4.2-5.4); Red Cell Distribution Width 21.2 % (11.5-14.5); White Blood Count 18.2 K/mm3 (4.5-10.0)
[2023-05-25] MEDS: ONDANSETRON INJ 4 MG/2 ML VIAL IV PUSH (09:32)
[2023-05-25] MEDS: MAGNESIUM SULF 20GM/WATER500ML 500 ML 50 MG IV CONT (09:56)
--- NOTE | 2023-05-25 11:50 | PM.IMHP ---
H&P: HPI History of Present Illness Date/Time: 05/25/23 11:50 Chief Complaint: contractions, twins Narrative: Marianne is a 22yo G1 at 33.4 with di/di twins who presents with regular and painful contractions. She was admitted at [facility] 05/21-05/23, discharged 2 days ago after steriods and no cervical change from /-3. Was taking procardia xl daily. Painful ctx started this am. Were q 1-2 min on admission. Mag bolus started, they spaced out some, but still 2-6 minutes, painful. Cervix 380/-1 at 0830, now 3/80 still. Plans primary CS as does not want risks of vaginal delivery of twins. Review of Systems Review of Systems: All systems reviewed & are unremarkable except as noted in HPI and below PMFSH Past Medical History Medical History 27 weeks gestation of Meds Home Medications and Allergies Home Medications Medication Instructions Recorded Confirmed Type prenat.vits,kelly,job-[id number] 1 tablet PO DAILY 04/12/23 05/25/23 History sertraline 50 mg tablet 50 mg PO DAILY 04/12/23 05/25/23 History famotidine 20 mg tablet (Pepcid) 20 mg PO DAILY 05/25/23 05/25/23 History nifedipine 30 mg tablet,extended 30 mg PO DAILY 05/25/23 05/25/23 History release 24 hr ursodiol 300 mg capsule 300 mg PO BID 05/25/23 05/25/23 History Allergies Allergy/AdvReac Type Severity Reaction Status Date / Time morphine AdvReac Nausea Verified 05/09/23 13:23 Vital Signs Vital Signs - 24 hr 05/25/23 08:07 05/25/23 08:08 05/25/23 08:12 Temperature Pulse Rate 68 Respiratory Rate Blood Pressure 128/83 Pulse Oximetry 98 99 Oxygen Delivery 05/25/23 08:15 05/25/23 08:17 05/25/23 08:22 Temperature Pulse Rate 60 Respiratory Rate Blood Pressure 132/68 Pulse Oximetry 99 100 Oxygen Delivery 05/25/23 08:27 05/25/23 08:30 05/25/23 08:32 Temperature Pulse Rate 60 Respiratory Rate Blood Pressure 126/76 Pulse Oximetry 100 100 Oxygen Delivery 05/25/23 08:37 05/25/23 08:42 05/25/23 08:45 Temperature Pulse Rate 69 Respiratory Rate Blood Pressure 126/77 Pulse Oximetry 100 100 Oxygen Delivery 05/25/23 08:47 05/25/23 08:52 05/25/23 08:57 Temperature Pulse Rate Respiratory Rate Blood Pressure Pulse Oximetry 100 100 100 Oxygen Delivery 05/25/23 09:02 05/25/23 09:07 05/25/23 09:12 Temperature Pulse Rate Respiratory Rate Blood Pressure Pulse Oximetry 100 100 100 Oxygen Delivery 05/25/23 09:15 05/25/23 09:20 05/25/23 09:25 Temperature Pulse Rate Respiratory Rate Blood Pressure Pulse Oximetry 99 99 99 Oxygen Delivery 05/25/23 09:30 05/25/23 09:35 05/25/23 09:40 Temperature Pulse Rate 75 Respiratory Rate Blood Pressure 113/56 L Pulse Oximetry 99 99 100 Oxygen Delivery 05/25/23 09:45 05/25/23 09:50 05/25/23 09:55 Temperature Pulse Rate 73 Respiratory Rate Blood Pressure 102/58 L Pulse Oximetry 99 98 99 Oxygen Delivery 05/25/23 09:56 05/25/23 10:00 05/25/23 10:01 Temperature Pulse Rate 71 83 Respiratory Rate Blood Pressure 107/59 L 92/39 L Pulse Oximetry 100 Oxygen Delivery 05/25/23 10:02 05/25/23 10:05 05/25/23 10:10 Temperature Pulse Rate 78 Respiratory Rate Blood Pressure 110/60 Pulse Oximetry 99 99 Oxygen Delivery 05/25/23 10:15 05/25/23 10:19 05/25/23 10:20 Temperature Pulse Rate 69 Respiratory Rate Blood Pressure 124/49 L Pulse Oximetry 99 100 Oxygen Delivery 05/25/23 10:25 05/25/23 10:30 05/25/23 10:35 Temperature Pulse Rate 75 Respiratory Rate Blood Pressure 119/71 Pulse Oximetry 100 100 100 Oxygen Delivery 05/25/23 10:40 05/25/23 10:45 05/25/23 10:50 Temperature Pulse Rate Respiratory Rate Blood Pressure Pulse Oximetry 99 99 100 Oxygen Delivery 05/25/23 10:55
--- NOTE | 2023-05-25 11:59 | P.PNOB_ITS ---
OB - PN: Subj Subjective Date/time seen: 05/25/23 11:59 Interval history: Transfer NOTE Narrative: Transfer note See H and P Transfer to [facility] for labor, di/di twins, , received steroids already, stable on magnesium. Spoke with Dr. Crouch who accepted transfe for Dr Greenberg, sending team to transfer pt. OB - PN: Obj Data Labs 05/25/23 09:23 Labs: Laboratory Results - last 24 hr 05/25/23 09:23 WBC 18.2 H RBC 3.63 L Hgb 9.6 L Hct 30.9 L MCV 85.1 MCH 26.4 MCHC 31.1 L RDW 21.2 H Plt Count 146 L MPV 11.4 H Immature Gran % (Auto) 5.8 H Neut % (Auto) 69.2 Lymph % (Auto) 15.1 L [place] % (Auto) 8.7 H Eos % (Auto) 0.4 Baso % (Auto) 0.8 Lymph # (Auto) 2.76 [place] # (Auto) 1.6 H Eos # (Auto) 0.1 Baso # (Auto) 0.1 Abs Immat Gran (auto) 1.06 H Absolute Neuts (auto) 12.6 H Absolute Nucleated RBC 0.1 H Nucleated RBC % 0.5 H OB - PN A/P Time Spent With Patient Time: Total time spent is greater than 50% in coordination of care (as documented) at patient's floor/unit and/or counseling patient:
[2023-05-25] MEDS: ACETAMINOPHEN 500 MG TABLET 1000 MG PO (13:34)
[2023-05-25] MEDS: AMPICILLIN 1 GM/NS 50 ML 1 GM/50 ML BAG IVPB (13:35)
--- NOTE | 2023-05-29 07:53 | PM.OBTRLD ---
OB - Triage/Final Diagnosis Visit Information Comments/Additional reasons for admission: I have assessed the risk for this patient, Marianne Fox, and determined that she would benefit from observation care. Evaluation Laboratory results: Laboratory Tests 05/25/23 09:23 WBC 18.2 H RBC 3.63 L Hgb 9.6 L Hct 30.9 L MCV 85.1 MCH 26.4 MCHC 31.1 L RDW 21.2 H Plt Count 146 L MPV 11.4 H Immature Gran % (Auto) 5.8 H Neut % (Auto) 69.2 Lymph % (Auto) 15.1 L [place] % (Auto) 8.7 H Eos % (Auto) 0.4 Baso % (Auto) 0.8 Lymph # (Auto) 2.76 [place] # (Auto) 1.6 H Eos # (Auto) 0.1 Baso # (Auto) 0.1 Abs Immat Gran (auto) 1.06 H Absolute Neuts (auto) 12.6 H Absolute Nucleated RBC 0.1 H Nucleated RBC % 0.5 H Final Diagnosis (1) Twin : Qualifiers: Multiple gestation type: unspecified Trimester: third trimester Qualified Code(s): O30.003 - Twin , unspecified number of placenta and unspecified number of amniotic sacs, third trimester Code(s): O30.009 - Twin , unspecified number of placenta and unspecified number of amniotic sacs, unspecified trimester Status: Acute (2) labor: Code(s): O60.00 - labor without delivery, unspecified trimester Status: Acute
== END 2023-05-25 14:11 | disposition short-term general hospital (02) ==
LOC: ANHLDR 08:00
PROVIDERS: Admitting Provider Obstetrics & Gynecology; Visit Provider Obstetrics & Gynecology
DX: O60.00 Preterm labor without delivery, unspecified trimester (principal); O30.043 Twin pregnancy, dichorionic/diamniotic, third trimester; Z3A.33 33 weeks gestation of pregnancy
CPT/HCPCS: 36415; 84112; 85025; 96365; 96366; 96368; 96375; A9270; G0378; G0379; J0290; J2405; J3475; J7120

== ENCOUNTER 2023-05-30 11:02 | Observation (INO) | payer OTHER, SELFPAY ==
[2023-05-30 11:31] VITALS: BP 125/73; PULSE 124
[2023-05-30 11:46] VITALS: BP 119/76; PULSE 134
[2023-05-30 12:01] VITALS: BP 126/71; PULSE 115
[2023-05-30 12:16] VITALS: BP 116/75; PULSE 105
[2023-05-30 12:31] VITALS: BP 116/69; PULSE 106
--- NOTE | 2023-05-30 14:42 | OBADM ---
This patient, Marianne Fox, admitted to the OB room Labor/Delivery/Recovery 118 for observation. Patient/family oriented to hospital policies and general routines including ID bracelet, bed and alarms, visiting hours, pain management, procedures, bathroom and other care routines, personal items, smoking policy, room service/diet, and visiting hours. Patient/Family are encouraged to report perceived risks to care and to ask questions if they do not understand what they are told or what they should do.
--- NOTE | 2023-05-30 14:48 | PC.NURSE ---
Upon admission, pt states she is taking her procardia at home but refuses to take it here. She has also stated she refuses terbutaline or magnesium to stop contractions.
--- NOTE | 2023-06-15 12:44 | PM.OBTRLD ---
OB - Triage/Final Diagnosis Visit Information Comments/Additional reasons for admission: I have assessed the risk for this patient, Marianne Fox, and determined that she would benefit from observation care. Final Diagnosis (1) contractions: Code(s): O47.00 - False labor before 37 completed weeks of gestation, unspecified trimester Status: Acute
== END 2023-05-30 14:00 | disposition home or self-care (01) ==
PROVIDERS: Admitting Provider Obstetrics & Gynecology; Visit Provider Obstetrics & Gynecology
DX: O47.03 False labor before 37 completed weeks of gestation, third trimester (principal); Z3A.34 34 weeks gestation of pregnancy
CPT/HCPCS: 84112; G0378; G0379

== ENCOUNTER 2023-06-02 13:09 | Observation (INO) | payer OTHER, SELFPAY ==
[2023-06-02 14:27] VITALS: BP 122/76; PULSE 101
--- NOTE | 2023-06-26 22:20 | PM.OBTRLD ---
OB - Triage/Final Diagnosis Visit Information Comments/Additional reasons for admission: I have assessed the risk for this patient, Marianne Fox, and determined that she would benefit from observation care. Final Diagnosis (1) False labor: Code(s): O47.9 - False labor, unspecified Status: Acute
== END 2023-06-02 14:42 | disposition home or self-care (01) ==
PROVIDERS: Admitting Provider Obstetrics & Gynecology; Visit Provider Obstetrics & Gynecology
DX: O47.03 False labor before 37 completed weeks of gestation, third trimester (principal); Z3A.34 34 weeks gestation of pregnancy
CPT/HCPCS: 84112; G0378; G0379

== ENCOUNTER 2023-06-03 14:18 | Observation (INO) | payer OTHER, SELFPAY ==
[2023-06-03 15:01] VITALS: BP 123/81; PULSE 95
[2023-06-03 15:14] VITALS: BMI 34.9
--- NOTE | 2023-06-03 15:16 | LDADM ---
This patient, Marianne Fox, was admitted to Labor/Delivery/Recovery 120 on 06/03/23 at 14:18. Plans for labor, pain management and were discussed with patient. Patient/family oriented to hospital policies and general routines including ID bracelet, bed and alarms, visiting hours, pain management, procedures, bathroom and other care routines, personal items, smoking policy, room service/diet and guest tray routines, infant security routines, and visiting hours. Patient/Family are encouraged to report perceived risks to care and to ask questions if they do not understand what they are told or what they should do. See OBIX for further documentation.
[2023-06-03 15:31] VITALS: BP 128/79; PULSE 95
[2023-06-03 15:43] LABS: Appearance Urine Cloudy (Clear); Bacteria Urine None Seen /hpf; Bilirubin Urine Negative (Negative); Blood Urine Negative (Negative); Color Urine Dark Yellow (Yellow); Glucose Urine UA Negative (Negative); Ketones Urine Trace mg/dL (Negative); Leukocyte Esterase Ur 1+ LEU/UL (Negative); Need Manual Microscopic Reviewed; Nitrate Urine Negative (Negative); Non Pathogenic Casts 0-2; Protein Urine 1+ mg/dL (Negative); RBC Urine 0-2 /hpf (0-2); Specific Grav Ur 1.018 (1.001-1.035); Squamous Epithelial Cell Urine Occasional /hpf (Few); WBC Urine 0-5 /hpf
[2023-06-03 15:44] LABS: Add Urine Microscopic? YES
[2023-06-03 15:46] VITALS: BP 130/79; PULSE 88
[2023-06-03 16:01] VITALS: BP 134/74; PULSE 89
[2023-06-03 16:16] VITALS: BP 122/76; PULSE 98
[2023-06-03 16:33] LABS: Basophils Absolute Auto 0.1 K/mm3 (0.0-0.1); Basophils Percent Auto 0.6 % (0.2-1.2); Eosinophils Absolute Auto 0.1 K/mm3 (0-0.3); Eosinophils Percent Auto 0.6 % (0-4.4); Hematocrit 33.7 % (37.0-47.0); Hemoglobin 10.6 g/dL (12.0-15.0); Immature Granulocyte Percent A 3.7 % (0-0.5); Immature Platelet Fraction Pct 12.2 % (0.9-11.2); Lymphocytes Absolute Auto 2.36 K/mm3 (0.9-3.2); Lymphocytes Percent Auto 21.7 % (18.3-44.2); Mean Corpuscular HGB Conc 31.5 g/dl (32-36); Mean Corpuscular Hemoglobin 26.4 pg (26-34); Mean Platelet Volume 11.9 fl (7.4-10.4); Monocytes Absolute Auto 0.7 K/mm3 (0.1-0.6); Monocytes Percent Auto 6.3 % (2.6-8.5); Neutrophils Absolute Auto 7.3 K/mm3 (1.3-6.7); Neutrophils Percent Auto 67.1 % (45.5-73.1); Platelet Count Result 148 k/mm3 (150-375); Red Blood Count 4.01 M/mm3 (4.2-5.4); Red Cell Distribution Width 20.6 % (11.5-14.5); White Blood Count 10.9 K/mm3 (4.5-10.0)
[2023-06-03 16:45] LABS: Alanine Aminotransferase 18 U/L (6-35); Albumin Level 3.6 g/dL (3.5-5.1); Alkaline Phosphatase 228 U/L (38-126); Anion Gap 8 mmol/L (8-16); Aspartate Amino Transferase 29 U/L (14-36); Bilirubin,Total 0.3 mg/dL (0.2-1.3); Blood Urea Nitrogen 9 mg/dL (7-17); Calcium 9.4 mg/dL (8.4-10.2); Carbon Dioxide 19 mmol/L (22-30); Chloride 105 mmol/L (98-107); Estimated CRCL calculation 125 ml/min; Estimated Glomerular Filt Rate > 60; Glucose 97 mg/dL (65-110); Potassium 4.2 mmol/L (3.4-5.0); Sodium 132 mmol/L (137-145)
--- NOTE | 2023-06-03 16:50 | PC.NURSE ---
Patient admitted to observation with complaints of left sided pain and itchiness due to diagnosed cholestasis. Patient states she took her first dose of ursodiol at 1200 today and took 25 mg of Benadryl at 0100 but has not taken anything sent. Sent UA. Notified MD of patient status. Orders placed for CBC and CMP. Reviewed lab results with MD. Verbal order given for discharge.
--- NOTE | 2023-06-10 21:36 | P.PNOB_ITS ---
OB - Triage/Final Diagnosis Visit Information Comments/Additional reasons for admission: I have assessed the risk for this patient, Marianne Fox, and determined that she would benefit from observation care. Evaluation Laboratory results: Laboratory Tests 06/03/23 06/03/23 15:02 16:20 WBC 10.9 H RBC 4.01 L Hgb 10.6 L Hct 33.7 L MCV 84.0 MCH 26.4 MCHC 31.5 L RDW 20.6 H Plt Count 148 L MPV 11.9 H Immature Gran % (Auto) 3.7 H Neut % (Auto) 67.1 Lymph % (Auto) 21.7 [place] % (Auto) 6.3 Eos % (Auto) 0.6 Baso % (Auto) 0.6 Lymph # (Auto) 2.36 [place] # (Auto) 0.7 H Eos # (Auto) 0.1 Baso # (Auto) 0.1 Abs Immat Gran (auto) 0.40 H Absolute Neuts (auto) 7.3 H Absolute Nucleated RBC 0.0 Nucleated RBC % 0.0 % Immature Plt Fraction 12.2 H Sodium 132 L Potassium 4.2 Chloride 105 Carbon Dioxide 19 L Anion Gap 8 BUN 9 Creatinine 0.60 L Estim Creat Clear Calc 125 Estimated GFR > 60 Glucose 97 Calcium 9.4 Total Bilirubin 0.3 AST 29 ALT 18 Alkaline Phosphatase 228 H Total Protein 7.0 Albumin 3.6 Urine Color Dark yellow Urine Appearance Cloudy H Urine pH 7.0 Ur Specific [place] 1.018 Urine Protein 1+ H Urine Glucose (UA) Negative Urine Ketones Trace H Ur Blood (Man) Negative Urine Nitrate Negative Urine Bilirubin Negative Urine Urobilinogen 1.0 Add Ur Microanalysis Reviewed Leukocyte Esterase Rfl 1+ H Urine RBC 0-2 Urine WBC 0-5 Ur Squamous Epith Cells Occasional Urine Bacteria None seen Urine Casts 0-2 Final Diagnosis (1) Cholestasis during : Code(s): O26.619 - Liver and biliary tract disorders in , unspecified trimester; K83.1 - Obstruction of bile duct Status: Acute
== END 2023-06-03 17:02 | disposition home or self-care (01) ==
PROVIDERS: Admitting Provider Obstetrics & Gynecology; Visit Provider Obstetrics & Gynecology
DX: O26.613 Liver and biliary tract disorders in pregnancy, third trimester (principal); K83.1 Obstruction of bile duct; Z3A.34 34 weeks gestation of pregnancy
CPT/HCPCS: 36415; 80053; 81001; 85025; 85055; G0378; G0379

== ENCOUNTER 2023-06-06 22:43 | Observation (INO) | payer OTHER, SELFPAY ==
[2023-06-06] VITALS (12 sets, daily range): BP systolic 125; BP diastolic 75; PULSE 79–93; RESP 18; TEMP 36.9; O2SAT 99–100
--- NOTE | 2023-06-06 22:43 | PC.NURSE ---
Pt arrives to unit with contractins and possible rupture of membranes. ROM plus test and NST performed.
--- NOTE | 2023-06-06 23:20 | PC.NURSE ---
ROM plus test was negative at 2320.
--- NOTE | 2023-06-06 23:55 | PC.NURSE ---
Stehpany Moore CNM, reported on ROM plus result, tracing, and contractions. Orders received to discharge pt with instructions on when to return to the unit.
--- NOTE | 2023-06-06 23:59 | OBADM ---
This patient, Marianne Fox, admitted to the OB room Labor/Delivery/Recovery 120 for observation. Patient/family oriented to hospital policies and general routines including ID bracelet, bed and alarms, visiting hours, pain management, procedures, bathroom and other care routines, personal items, smoking policy, room service/diet, and visiting hours. Patient/Family are encouraged to report perceived risks to care and to ask questions if they do not understand what they are told or what they should do.
--- NOTE | 2023-06-08 16:50 | PM.OBTRLD ---
OB - Triage/Final Diagnosis Visit Information Date of evaluation: 06/07/23 Reason for evaluation: threatened labor Comments/Additional reasons for admission: I have assessed the risk for this patient, Marianne Fox, and determined that she would benefit from observation care.
== END 2023-06-07 00:14 | disposition home or self-care (01) ==
PROVIDERS: Admitting Provider Obstetrics & Gynecology; Visit Provider Obstetrics & Gynecology
DX: O47.9 False labor, unspecified (principal); Z3A.00 Weeks of gestation of pregnancy not specified
CPT/HCPCS: 59025; 84112; G0378; G0379

== ENCOUNTER 2023-06-07 07:05 | Outpatient (CLI) | payer OTHER, SELFPAY ==
[2023-06-07 07:34] VITALS: BP 123/81; PULSE 81
[2023-06-07 08:01] VITALS: BP 132/85; PULSE 72
--- NOTE | 2023-06-07 08:20 | PC.NURSE ---
Dr. Snyder on unit and informed of pt's arrival with twins at 35 3/7 with c/o leaking. ROM plus was negative. Pt continues to have contractions. Order received to check cervix.
--- NOTE | 2023-06-07 08:35 | PC.NURSE ---
Dr. Snyder in to see pt. SVE by me and MD informed. Order received to discharge to home.
[2023-06-07 08:37] VITALS: BP 132/85; PULSE 74
== END 2023-06-07 08:37 | disposition home or self-care (01) ==
LOC: ANHOBOP 07:09 → ANHLDR 07:10
PROVIDERS: Visit Provider Obstetrics & Gynecology
DX: O41.8X90 Other specified disorders of amniotic fluid and membranes, unspecified trimester, not applicable or unspecified (principal)
CPT/HCPCS: 59025; 84112; 99199

== ENCOUNTER 2023-06-08 07:37 | Observation (INO) | payer OTHER, SELFPAY ==
[2023-06-08 07:56] VITALS: BP 139/80; PULSE 80
[2023-06-08 08:01] VITALS: BP 141/79; PULSE 85
[2023-06-08 08:16] VITALS: BP 132/77; PULSE 81
[2023-06-08 08:21] VITALS: BMI 34.2
--- NOTE | 2023-06-08 08:22 | OBADM ---
This patient, Marianne Fox, admitted to the OB room Labor/Delivery/Recovery 119 for observation. Patient/family oriented to hospital policies and general routines including ID bracelet, bed and alarms, visiting hours, pain management, procedures, bathroom and other care routines, personal items, smoking policy, room service/diet, and visiting hours. Patient/Family are encouraged to report perceived risks to care and to ask questions if they do not understand what they are told or what they should do.
[2023-06-08 08:30] VITALS: BP 123/78; PULSE 77
[2023-06-08 08:31] VITALS: BP 132/77; PULSE 77
[2023-06-08 08:46] VITALS: BP 123/78; PULSE 76
--- NOTE | 2023-06-08 09:06 | PC.NURSE ---
0905: Dr. Main on unit. RN informed MD of patient's complaints of being uncomfortable, right hip pain, and being itchy. Orders to give patient 1 tablet of [place] 5 and discharge home with instructions on when to return to the hospital. MD stated she will send patient home with a prescription for Percocet to take as prescribed at home.
[2023-06-08] MEDS: HYDROcodone/acetaminophen (*CRX) 5-325 MG TABLET 1 TAB PO (09:11)
--- NOTE | 2023-06-08 09:14 | PC.NURSE ---
0914: Patient states she does not want to be sent home on pain medication and she wants MD to call [facility]. Dr. Main is aware of this, MD states [facility] was contacted last week and nothing has changed since then. Patient is scheduled for a Section at 37 weeks for cholestasis. MD states patient does not need a cervical exam at this point. MD states patient can be discharged home.
--- NOTE | 2023-06-08 09:32 | PC.NURSE ---
0913: RN was in room to discharge patient, patient states she does not want to leave without an ultrasound of her kidneys, she states she is not having normal pains that the stabbing pain she has in her hip and lower pelvic is unbearable. RN phoned Dr. Main, no answer at this time.
--- NOTE | 2023-06-08 10:12 | PC.NURSE ---
0944: MD aware of patient's request for an ultrasound, MD states the ultrasound on kidneys is not warranted at this time since her pain is in her right hip and lower pelvic area. 0950: Patient aware that MD will not order a kidney ultrasound at this time, patient states she wants to be discharged now and will be leaving to go to [facility] for a second opinion.
--- NOTE | 2023-06-19 07:47 | PM.OBTRLD ---
OB - Triage/Final Diagnosis Visit Information Date of evaluation: 06/08/23 Comments/Additional reasons for admission: I have assessed the risk for this patient, Marianne Fox, and determined that she would benefit from observation care. Final Diagnosis (1) Hip pain: Code(s): M25.559 - Pain in unspecified hip Status: Acute (2) Twin : Qualifiers: Multiple gestation type: unspecified Trimester: third trimester Qualified Code(s): O30.003 - Twin , unspecified number of placenta and unspecified number of amniotic sacs, third trimester Code(s): O30.009 - Twin , unspecified number of placenta and unspecified number of amniotic sacs, unspecified trimester Status: Acute
== END 2023-06-08 09:59 | disposition home or self-care (01) ==
PROVIDERS: Admitting Provider Obstetrics & Gynecology; Visit Provider Obstetrics & Gynecology
DX: O26.893 Other specified pregnancy related conditions, third trimester (principal); M25.59 Pain in other specified joint; O30.003 Twin pregnancy, unspecified number of placenta and unspecified number of amniotic sacs, third trimester; Z3A.00 Weeks of gestation of pregnancy not specified
CPT/HCPCS: 59025; A9270; G0378; G0379

== ENCOUNTER 2023-06-11 23:23 | Observation (INO) | payer OTHER, SELFPAY ==
[2023-06-11 23:45] VITALS: BMI 36.3
[2023-06-12] VITALS (118 sets, daily range): BP systolic 120–152; BP diastolic 61–106; PULSE 55–107; TEMP 36.5; O2SAT 73–100
[2023-06-12 00:57] LABS: Appearance Urine Turbid (Clear); Bacteria Urine 2+ /hpf; Bilirubin Urine Negative (Negative); Color Urine Dark Yellow (Yellow); Glucose Urine UA Negative (Negative); Ketones Urine Trace mg/dL (Negative); Leukocyte Esterase Ur 2+ LEU/UL (Negative); Need Manual Microscopic Reviewed; Nitrate Urine Negative (Negative); Protein Urine 3+ mg/dL (Negative); RBC Urine 21-50 /hpf (0-2); Squamous Epithelial Cell Urine Many /hpf (Few); WBC Urine >100 /hpf
[2023-06-12 01:07] LABS: Add Urine Microscopic? YES
[2023-06-12] MEDS: NITROFURANTOIN MONOHYD MACROCR 100 MG CAP PO (01:43)
[2023-06-12] MEDS: LACTATED RINGERS 1,000 ML 999 ML IV CONT (01:51)
[2023-06-12] MEDS: fentaNYL CITRATE INJ (*CRX) 100 MCG/2 ML VIAL 50 MCG IV PUSH ×2 (03:52→05:13)
[2023-06-12] MEDS: FAMOTIDINE 20 MG/2 ML VIAL IV PUSH (05:13)
[2023-06-12] MEDS: LACTATED RINGERS 1,000 ML 150 ML IV CONT ×3 (07:05→21:35)
--- NOTE | 2023-06-12 07:31 | PM.IMHP ---
H&P: HPI History of Present Illness Date/Time: 06/12/23 07:31 Chief Complaint: contractions Narrative: Marianne is a 22yo G1 at 36.1 with di/di twins for contractions, regular since around 11pm. She was found to have a UTI and given one dose of macrobid overnight. She made minimal change from 3/50 to 3.5/60 over 5 hours. Has scheduled primary CS and tubal one week from today. has also been complicated by cholestasis, on ursodiol. Review of Systems Review of Systems: All systems reviewed & are unremarkable except as noted in HPI and below PMFSH Past Medical History Medical History 27 weeks gestation of Meds Home Medications and Allergies Home Medications Medication Instructions Recorded Confirmed Type prenat.vits,kelly,ymn-cpje-firzq 1 tablet PO DAILY 04/12/23 06/11/23 History sertraline 50 mg tablet 50 mg PO DAILY 04/12/23 06/11/23 History famotidine 20 mg tablet (Pepcid) 20 mg PO DAILY 05/25/23 06/11/23 History valacyclovir 500 mg tablet 500 mg PO DAILY 05/30/23 06/11/23 History ursodiol 500 mg tablet 500 mg PO BID 06/07/23 06/11/23 History Allergies Allergy/AdvReac Type Severity Reaction Status Date / Time morphine AdvReac Nausea Verified 06/07/23 03:25 Vital Signs Vital Signs - 24 hr 06/12/23 03:47 06/12/23 04:01 06/12/23 04:16 Temperature Pulse Rate 80 90 69 Blood Pressure 141/84 H 137/80 123/61 06/12/23 04:31 06/12/23 04:46 06/12/23 05:01 Temperature Pulse Rate 65 73 77 Blood Pressure 130/62 137/83 132/69 06/12/23 05:16 06/12/23 05:31 06/12/23 05:46 Temperature Pulse Rate 73 71 69 Blood Pressure 126/72 133/72 130/65 06/12/23 06:01 06/12/23 06:16 06/12/23 06:31 Temperature Pulse Rate 89 79 71 Blood Pressure 135/76 133/71 137/80 06/12/23 06:46 06/12/23 07:01 06/12/23 07:16 Temperature 97.7 F Pulse Rate 78 79 79 Blood Pressure 138/78 138/79 131/73 Exam Const: General: no acute distress Resp: Effort & Inspection: normal respiratory effort Auscultation: clear to auscultation bilaterally Cardio: Rate: regular rate Rhythm: regular rhythm GI: GI Palp: Yes Soft to palpation Extrem: General: normal to inspection H&P: Results Labs Labs: Urine 06/12/23 Range/Units 00:34 Urine Color Dark yellow (Yellow) Urine Appearance Turbid H (Clear) Urine pH 6.0 (5.0-9.0) Ur Specific [place] 1.020 (1.001-1.035) Urine Protein 3+ H (Negative) mg/dL Urine Glucose (UA) Negative (Negative) mg/dL Assessment and Plan Assessment and plan (1) Cholestasis during : Code(s): O26.619 - Liver and biliary tract disorders in , unspecified trimester; K83.1 - Obstruction of bile duct Status: Acute (2) contractions: Code(s): O47.00 - False labor before 37 completed weeks of gestation, unspecified trimester Status: Acute (3) UTI (urinary tract infection): Code(s): N39.0 - Urinary tract infection, site not specified Status: Acute Plan FHT category 1 x2 SVE 4/70/-3 rocephin x1 morphine zofran (nausea with morphine) likely laboring, if makes further cervical change, though slow change, will proceed with delivery. Pt desires sterilization, salpingectomy with CS. discussed POC with pt, her mother, and RN.
[2023-06-12] MEDS: ONDANSETRON INJ 4 MG/2 ML VIAL 8 MG IV PUSH (07:49)
[2023-06-12] MEDS: SODIUM CHLORIDE 0.9% IV 250 ML 100 ML IV CONT (08:10)
[2023-06-12] MEDS: cefTRIAXone 1 GM in DEXTROSE 5% IN WATER 50 ML IVPB (08:10)
[2023-06-12] MEDS: MORPHINE SULFATE INJ (*CRX) 10 MG/ML AMP IV PUSH (08:11)
[2023-06-12] MEDS: PHENAZOPYRIDINE HCL 100 MG TABLET 200 MG PO (13:06)
--- NOTE | 2023-06-12 17:56 | PM.OBPNLAB ---
Pain Control Date/time seen: 06/12/23 17:56 Comments: complains of almost constant 8/10 pain in pelvis and right hip. worse with contractions. contractions have spaced out. Pelvic Exam Dilation (cm): 4 Effacement (%): 70 station: -2 Amniotic membrane status: Bulging Status status: Category l Comments: x2 Assessment and Plan Comments: likely early labor. toco q 12 min or so, but then contractions are 2-3 min long and coupling. cervix feels laboring, but has not changed since my check at 0710. 4/70/-2 BBOW. She appears mildly uncomfortable through our 20 min discussion but is able to converse easily. We discussed that at 36w her body has to declare labor before we can decide to do her CS since babies are . We discussed the potential consequences of late delivery including RDS, intubation, transfer, prolonged hospital stay. I encouraged her to move around, ambulate, use labor ball. Offered her DC to continue early labor at home vs overnight obs. She cannot imagine this pain at home and wants to stay overnight. Will repeat rocephin at 24 hrs. May eat, but NPO at [place], will reasses in am. She agrees to DC home in am if no cervical change. FHT category 1x2. May have morphine again x1 if desires. Will place SCDs. Discuss POC with pt, family, RNs.
[2023-06-12] MEDS: ZOLPIDEM TARTRATE (*CRX) 5 MG TABLET 10 MG PO (22:50)
[2023-06-13 02:49] VITALS: BP 119/68; PULSE 66; RESP 16; TEMP 36.6
[2023-06-13] MEDS: LACTATED RINGERS 1,000 ML 150 ML IV CONT (04:40)
[2023-06-13 05:11] VITALS: BP 143/85; PULSE 78; RESP 16; TEMP 36.5
[2023-06-13 06:28] VITALS: TEMP 36.4
[2023-06-13 06:32] VITALS: BP 137/82; PULSE 80
--- NOTE | 2023-06-13 09:25 | PM.OBPNLAB ---
Pain Control Date/time seen: 06/13/23 09:25 Comments: slept all night per RN, but pt states still very uncomfortable with pain and contractions Pelvic Exam Dilation (cm): 4 Effacement (%): 70 station: -2 Contractions Contraction pattern: Irregular (q 5-20) Status status: Category l Assessment and Plan Comments: cervix remains the same since my check last night and yesterday am. contractions spaced out Discussed with pt need to DC home, despite her strong desire to be delivered. may be early latent labor, may come back in a day or two, but since 36 weeks, will not deliver unless makes further change. FHT category 1 x2. s/p rocephin x2, home on macrobid continue ursodiol
[2023-06-13] MEDS: ONDANSETRON INJ 4 MG/2 ML VIAL 8 MG IV PUSH (10:07)
--- NOTE | 2023-06-15 12:45 | P.PNOB_ITS ---
OB - Triage/Final Diagnosis Visit Information Comments/Additional reasons for admission: I have assessed the risk for this patient, Marianne Fox, and determined that she would benefit from observation care. Evaluation Laboratory results: Laboratory Tests 06/12/23 00:34 Urine Color Dark yellow Urine Appearance Turbid H Urine pH 6.0 Ur Specific [place] 1.020 Urine Protein 3+ H Urine Glucose (UA) Negative Urine Ketones Trace H Ur Blood (Man) Non-hemolyzed trace Urine Nitrate Negative Urine Bilirubin Negative Urine Urobilinogen 1.0 Add Ur Microanalysis Reviewed Leukocyte Esterase Rfl 2+ H Urine RBC 21-50 H Urine WBC >100 H Ur Squamous Epith Cells Many H Urine Bacteria 2+ H Urine Casts 3-5 Final Diagnosis (1) contractions: Code(s): O47.00 - False labor before 37 completed weeks of gestation, unspecified trimester Status: Acute
== END 2023-06-13 10:45 | disposition home or self-care (01) ==
LOC: ANHLDR 23:27 → ANHOBPP 06-12 03:08
PROVIDERS: Obstetrics & Gynecology; Admitting Provider Obstetrics & Gynecology; Visit Provider Obstetrics & Gynecology
DX: O30.043 Twin pregnancy, dichorionic/diamniotic, third trimester (principal); O47.03 False labor before 37 completed weeks of gestation, third trimester; O23.43 Unspecified infection of urinary tract in pregnancy, third trimester; N39.0 Urinary tract infection, site not specified; O99.613 Diseases of the digestive system complicating pregnancy, third trimester; K83.1 Obstruction of bile duct; Z3A.36 36 weeks gestation of pregnancy
CPT/HCPCS: 81001; 87086; 96361; 96374; 96375; 96376; A9270; G0378; G0379; J0696; J2270; J2405; J3010; J7050; J7120

== ENCOUNTER 2023-06-14 04:09 | Inpatient (IN) | payer OTHER, SELFPAY ==
[2023-06-14] VITALS (103 sets, daily range): BP systolic 110–147; BP diastolic 59–89; PULSE 53–88; RESP 14–17; TEMP 35.9–37; O2SAT 82–100; BMI 33.0
--- NOTE | ~2023-06-14 | XR_ITS ---
EXAMINATION: XR chest 2V DATE: 06/14/2023 09:45 INDICATION: Severe edema TECHNIQUE: AP and lateral views of the chest are obtained. COMPARISON: 08/24/2017 FINDINGS: There are minimal opacities of the lung bases. No pleural effusion or pneumothorax. The car diomediastinal silhouette is normal. The visualized bones and soft tissues are unremarkable. IMPRESSION: 1. Minimal opacities of the lung bases which could reflect atelectasis, mild pulmonary edema, or pneu monia. Reviewed, dictated and finalized at location L. IMPRESSION: 1. Minimal opacities of the lung bases which could reflect atelectasis, mild pu lmonary edema, or pneumonia.
--- NOTE | ~2023-06-14 | US_ITS ---
EXAMINATION: US OB limited DATE: 06/14/2023 09:38 INDICATION: Vaginal bleeding during third trimester . TECHNIQUE: Real-time ultrasound of the pelvis was performed. The interpreting radiologist was not pre sent for the study. COMPARISON: None. FINDINGS: There are two living fetuses. Fetus A: Presentation is vertex and positioned on the maternal right. The placenta for fetus A is anterior. Fe theodora heart rate is 131 beats per minute (bpm). The deepest vertical amniotic fluid pocket is 4.4 cm wh ich is normal. Fetus B: Presentation is vertex on maternal left. heart rate is 134 bpm. The deepest vertical amniotic fluid pocket is 4.1 cm which is normal. IMPRESSION: 1. Living twin fetuses with heart rate of 131 bpm for fetus A in vertex position on maternal r ight with anterior placenta and 134 bpm for fetus B in vertex position on maternal left with fundal p lacenta. 2. Normal deepest vertical amniotic fluid pockets measuring 4.4 cm for fetus A and 4.1 cm for fetus B. Reviewed, dictated and finalized at location A. IMPRESSION: 1. Living twin fetuses with heart rate of 131 bpm for fetus A in vertex position on maternal right with anterior placenta and 134 bpm for fetus B in ve rtex position on maternal left with fundal placenta. 2. Normal deepest vertical amniotic fluid pockets measuring 4.4 cm for fetus A and 4.1 cm for fetus B.
--- NOTE | ~2023-06-14 | US_ITS ---
EXAMINATION: US venous doppler [facility] DATE: 06/14/2023 09:38 INDICATION: Lower limb pain and swelling TECHNIQUE: Grayscale ultrasound images without and with compression and Doppler ultrasound images of the bilateral lower extremity veins were obtained. COMPARISON: None. FINDINGS: The visualized portions of right common femoral vein, profunda (deep) femoral vein, femoral vein, pop liteal vein, posterior tibial veins, peroneal veins, gastrocnemius vein and greater saphenous vein ou tflow are patent. The visualized portions of left common femoral vein, profunda femoral vein, femoral vein, popliteal v ein, posterior tibial veins, peroneal veins, gastrocnemius vein and greater saphenous vein outflow ar e patent. IMPRESSION: 1. No deep venous thrombosis in either lower limb. Reviewed, dictated and finalized at location A.
[2023-06-14 08:10] LABS: Hemoglobin 9.3 g/dL (12.0-15.0); Immature Platelet Fraction Pct 14.4 % (0.9-11.2); Mean Corpuscular Hemoglobin 26.5 pg (26-34); Mean Corpuscular Volume 85.5 fl (80-100); Mean Platelet Volume 12.9 fl (7.4-10.4); Platelet Count Result 110 k/mm3 (150-375); Red Blood Count 3.51 M/mm3 (4.2-5.4); Red Cell Distribution Width 21.2 % (11.5-14.5); White Blood Count 12.3 K/mm3 (4.5-10.0)
--- NOTE | 2023-06-14 08:18 | PM.IMHP ---
H&P: HPI History of Present Illness Date/Time: 06/14/23 08:18 Chief Complaint: ConTractions, painful edema Narrative: 22-year-old 2 para 0010 at 36 weeks gestation who presented with painful contractions and edema. She has a twin gestation. She has painful lower extremity edema that is bilateral. She has been in early labor for a prolonged period of time and has been in and out of Labor and delivery with painful contractions. She has got elevated blood pressures, gestational hypertension, but no evidence of preeclampsia yet. She had recent episode of vaginal bleeding. She has intermittent repetitive painful contractions. There is reassuring status. We are going to obtain pelvic ultrasound, observe her for signs symptoms of preeclampsia or labor. To pain bilateral lower extremity had Dopplers for marked edema. Review of Systems Review of Systems: All systems reviewed & are unremarkable except as noted in HPI and below Constitutional: Constitutional: Denies chills, Denies fatigue, Denies fever(s) and Denies weakness Eyes: Eyes: Denies blurry vision, Denies change in vision, Denies loss of peripheral vision, Denies loss of vision, Denies other visual disturbances and Denies eye pain ENT: Denies vertigo, Denies dizziness, Denies hearing loss, Denies mouth pain, Denies nasal obstruction, Denies neck mass and Denies neck pain Cardiovascular: Cardiovascular: Denies chest pain, Denies diaphoresis, Denies syncope, Denies leg edema and Denies dyspnea Respiratory: Respiratory: Denies chest congestion, Denies cough, Denies hemoptysis, Denies dyspnea and Denies wheezing Gastrointestinal: Gastrointestinal: Denies abdominal pain, Denies constipation, Denies diarrhea, Denies nausea and Denies vomiting Genitourinary: Genitourinary: Denies hematuria, Denies change in libido, Denies nocturia, Denies genital lesions, Denies flank pain and Denies urinary urgency Musculoskeletal: Musculoskeletal: Denies abnormal gait, Denies back pain, Denies myalgias, Denies arthralgias, Denies joint swelling, Denies muscle weakness and Denies neck pain Integumentary/Breasts: Skin/Breast: Denies swelling, Denies breast pain, Denies breast mass, Denies dry skin, Denies nipple discharge, Denies unusual bruising and Denies jaundice Neurologic: Denies Neuro-related abnormal movements, Denies Abnormal speech present, Denies abnormal gait, Denies behavioral changes, Denies confusion, Denies vertigo, Denies dizziness, Denies syncope, Denies loss of vision, Denies memory loss, Denies convulsions and Denies weakness Psychiatric: Psychiatric: Denies abnormal sleep pattern, Denies behavioral changes, Denies change in libido, Denies confusion, Denies depression, Denies anhedonia and Denies memory loss Endocrine: Endocrine: Reports no additional endocrine complaints, Denies change in libido and Denies fatigue Hematologic/Lymphatic: Hematologic/Lymphatic: Reports no additional hematologic/lymphatic complaints Allergic/Immunologic: Allergic/Immunologic: Reports no additional allergic/immunologic complaints and Denies wheezing PMFSH Past Medical History Medical History 27 weeks gestation of Meds Home Medications and Allergies Home Medications Medication Instructions Recorded Confirmed Type prenat.vits,kelly,phd-cfxr-igwot 1 tablet PO DAILY 04/12/23 06/11/23 History sertraline 50 mg tablet 50 mg PO DAILY 04/12/23 06/11/23 History famotidine 20 mg tablet (Pepcid) 20 mg PO DAILY 05/25/23 06/11/23 History valacyclovir 500 mg tablet 500 mg PO DAILY 05/30/23 06/11/23 History ursodiol 500 mg tablet 500 mg PO BID 06/07/23 06/11/23 History nitrofurantoin 100 mg PO Q12H 5 days #10 caps 06/13/23 Rx monohydrate/macrocrystals 100 mg capsule (Macrobid) Allergies Allergy/AdvReac Type Severity Reaction Status Date / Time morphine AdvReac Nausea Verified 06/07/23 03:25 Vital Signs
[2023-06-14 08:21] LABS: Creatinine Urine 133.8 mg/dL
[2023-06-14 08:24] LABS: Alanine Aminotransferase 10 U/L (6-35); Albumin Level 1.8 g/dL (3.5-5.1); Alkaline Phosphatase 172 U/L (38-126); Anion Gap 6 mmol/L (8-16); Aspartate Amino Transferase 26 U/L (14-36); Bilirubin,Total 0.3 mg/dL (0.2-1.3); Blood Urea Nitrogen 12 mg/dL (7-17); Calcium 5.9 mg/dL (8.4-10.2); Carbon Dioxide 13 mmol/L (22-30); Chloride 119 mmol/L (98-107); Estimated Glomerular Filt Rate > 60; Glucose 52 mg/dL (65-110); Potassium 2.9 mmol/L (3.4-5.0); Sodium 138 mmol/L (137-145)
[2023-06-14 08:28] LABS: Total Protein Urine Random > 600 mg/dL
[2023-06-14 08:29] LABS: Band Neutrophils Percent 1 % (0-6); Eosinophils Absolute Manual 0.12 K/mm3 (0.02-0.5); Eosinophils Percent Manual 1 % (0-4); Lymphocytes Absolute Manual 1.59 K/mm3 (1.1-4.5); Monocytes Absolute Manual 0.98 K/mm3 (0.1-0.90); Monocytes Percent Manual 8 % (3-9); Myelocytes Percent 1 %; Neutrophils Absolute Manual 9.47 K/mm3 (1.7-7.2); Neutrophils Percent Manual 76 % (46-73); Schistocytes None Seen (NORMAL); Total Cells Counted 100
[2023-06-14 08:30] LABS: Hypochromasia 1+ (NORMAL); Platelet Estimate Decreased (Adequate)
--- NOTE | 2023-06-14 08:57 | OBPPTRN ---
Patient transferred to post room # via ( ). Support person present. Oriented to unit, room, information board, rooming in, admission packet and security measures. Patient verbalizes understanding.
[2023-06-14] MEDS: fentaNYL CITRATE INJ (*CRX) 100 MCG/2 ML VIAL 50 MCG IV PUSH ×2 (11:10→12:39)
[2023-06-14 14:33] LABS: Hematocrit 21.6 % (37.0-47.0); Immature Platelet Fraction Pct 11.2 % (0.9-11.2); Mean Corpuscular Hemoglobin 26.8 pg (26-34); Mean Corpuscular Volume 86.4 fl (80-100); Platelet Count Result 74 k/mm3 (150-375); Red Cell Distribution Width 21.1 % (11.5-14.5); White Blood Count 8.4 K/mm3 (4.5-10.0)
[2023-06-14 14:42] LABS: Alanine Aminotransferase 14 U/L (6-35); Albumin Level 2.8 g/dL (3.5-5.1); Alkaline Phosphatase 246 U/L (38-126); Anion Gap 6 mmol/L (8-16); Aspartate Amino Transferase 40 U/L (14-36); Bilirubin,Total 0.5 mg/dL (0.2-1.3); Blood Urea Nitrogen 16 mg/dL (7-17); Calcium 8.4 mg/dL (8.4-10.2); Carbon Dioxide 19 mmol/L (22-30); Chloride 109 mmol/L (98-107); Estimated CRCL calculation 77 ml/min; Estimated Glomerular Filt Rate > 60; Glucose 61 mg/dL (65-110); Potassium 4.2 mmol/L (3.4-5.0); Sodium 134 mmol/L (137-145); Uric Acid 10.6 mg/dL (2.5-7.5)
[2023-06-14 14:52] LABS: Hemoglobin 6.7 g/dL (12.0-15.0)
[2023-06-14 15:01] LABS: Total Cells Counted 100
[2023-06-14 15:02] LABS: Band Neutrophils Percent 2 % (0-6); Eosinophils Absolute Manual 0.08 K/mm3 (0.02-0.5); Eosinophils Percent Manual 1 % (0-4); Lymphocytes Absolute Manual 0.92 K/mm3 (1.1-4.5); Lymphocytes Percent Manual 11 % (18-44); Metamyelocytes Percent 1 %; Monocytes Absolute Manual 0.58 K/mm3 (0.1-0.90); Monocytes Percent Manual 7 % (3-9); Neutrophils Absolute Manual 6.72 K/mm3 (1.7-7.2); Neutrophils Percent Manual 78 % (46-73); Nucleated Red Blood Cells 1 %
[2023-06-14 15:03] LABS: Ovalocytes 1+ (NORMAL); Platelet Estimate Decreased (Adequate); Schistocytes None Seen (NORMAL)
[2023-06-14 15:41] LABS: Fibrinogen 393 mg/dl (215-510); Partial Thromboplastin Time 29.7 SECONDS (22.3-36.8); Prothrombin Time 13.1 Seconds (11.1-14.7)
[2023-06-14 15:44] LABS: Hematocrit 29.8 % (37.0-47.0); Hemoglobin 9.3 g/dL (12.0-15.0); Immature Platelet Fraction Pct 12.7 % (0.9-11.2); Mean Corpuscular HGB Conc 31.2 g/dl (32-36); Mean Corpuscular Hemoglobin 26.6 pg (26-34); Mean Corpuscular Volume 85.1 fl (80-100); Platelet Count Result 105 k/mm3 (150-375); Red Cell Distribution Width 21.1 % (11.5-14.5); White Blood Count 11.7 K/mm3 (4.5-10.0)
[2023-06-14 16:01] LABS: Lymphocytes Absolute Manual 2.22 K/mm3 (1.1-4.5); Lymphocytes Percent Manual 19 % (18-44); Metamyelocytes Percent 1 %; Monocytes Absolute Manual 0.81 K/mm3 (0.1-0.90); Monocytes Percent Manual 7 % (3-9); Myelocytes Percent 1 %; Neutrophils Percent Manual 72 % (46-73); Ovalocytes 1+ (NORMAL); Platelet Estimate Decreased (Adequate); Schistocytes None Seen (NORMAL); Total Cells Counted 100
--- NOTE | 2023-06-14 16:28 | WPDANESEPPF ---
Anes - Initial Pre Proc Eval Procedure: Operation Date: 06/14/23 15:40 Proposed Procedures p Section with bilateral tubal - R. Newton Snyder MD Date/Time: 06/14/23 16:28 Surgeon: Roopa Main MD Pre Op Diagnosis: Contractions/Leaking Patient Data Age: 22 Gender: F Height: 1.57 m Weight: 98.6 kg Last Vital Signs Pulse 67 06/14/23 15:27 BP 136/79 06/14/23 15:27 Pulse Ox 100 06/14/23 15:56 Allergies Allergy/AdvReac Type Severity Reaction Status Date / Time morphine AdvReac Nausea Verified 06/07/23 03:25 Home Medications Medication Instructions Recorded Confirmed Type prenat.vits,kelly,qxf-xgnw-kbuxs 1 tablet PO DAILY 04/12/23 06/11/23 History sertraline 50 mg tablet 50 mg PO DAILY 04/12/23 06/11/23 History famotidine 20 mg tablet (Pepcid) 20 mg PO DAILY 05/25/23 06/11/23 History valacyclovir 500 mg tablet 500 mg PO DAILY 05/30/23 06/11/23 History ursodiol 500 mg tablet 500 mg PO BID 06/07/23 06/11/23 History nitrofurantoin 100 mg PO Q12H 5 days #10 caps 06/13/23 Rx monohydrate/macrocrystals 100 mg capsule (Macrobid) Laboratory Tests 06/14/23 06/14/23 06/14/23 07:32 07:35 14:17 WBC 12.3 H K/mm3 8.4 K/mm3 (4.5-10.0) (4.5-10.0) RBC 3.51 L M/mm3 2.50 L M/mm3 (4.2-5.4) (4.2-5.4) Hgb 9.3 L g/dL 6.7 L* g/dL (12.0-15.0) (12.0-15.0) Hct 30.0 L % 21.6 L % (37.0-47.0) (37.0-47.0) MCV 85.5 fl 86.4 fl (80-100) (80-100) MCH 26.5 pg 26.8 pg (26-34) (26-34) MCHC 31.0 L g/dl 31.0 L g/dl (32-36) (32-36) RDW 21.2 H % 21.1 H % (11.5-14.5) (11.5-14.5) Plt Count 110 L k/mm3 74 L k/mm3 (150-375) (150-375) MPV 12.9 H fl 12.0 H fl (7.4-10.4) (7.4-10.4) Immature Gran % (Auto) Not Reportable Not Reportable Neut % (Auto) Not Reportable Not Reportable Lymph % (Auto) Not Reportable Not Reportable [place] % (Auto) Not Reportable Not Reportable Eos % (Auto) Not Reportable Not Reportable Baso % (Auto) Not Reportable Not Reportable Lymph # (Auto) Not Reportable Not Reportable [place] # (Auto) Not Reportable Not Reportable Eos # (Auto) Not Reportable Not Reportable Baso # (Auto) Not Reportable Not Reportable Abs Immat Gran (auto) Not Reportable Not Reportable Absolute Neuts (auto) Not Reportable Not Reportable Absolute Nucleated RBC Not Reportable Not Reportable Total Counted 100 100 Neutrophils % (Manual) 76 H % 78 H % (46-73) (46-73) Band Neutrophils % 1 % 2 % (0-6) (0-6) Lymphocytes % (Manual) 13.0 L % 11 L % (18-44) (18-44) Monocytes % (Manual) 8 % 7 % (3-9) (3-9) Eosinophils % (Manual) 1 % 1 % (0-4) (0-4) Metamyelocytes % 1 % Myelocytes % 1 % Nucleated RBC % Not Reportable Not Reportable Abs Neuts (Manual) 9.47 H K/mm3 6.72 K/mm3 (1.7-7.2) (1.7-7.2) Abs Lymphs (Manual) 1.59 K/mm3 0.92 L K/mm3 (1.1-4.5) (1.1-4.5) Abs Monocytes (Manual) 0.98 H K/mm3 0.58 K/mm3 (0.1-0.90) (0.1-0.90) Absolute Eos (Manual) 0.12 K/mm3 0.08 K/mm3 (0.02-0.5) (0.02-0.5) Nucleated RBCs 1 % Platelet Estimate Decreased Decreased (Adequate) (Adequate) % Immature Plt Fraction 14.4 H % 11.2 % (0.9-11.2) (0.9-11.2) Hypochromasia 1+ (NORMAL) Ovalocytes 1+ (NORMAL) Schistocytes None seen None seen (NORMAL) (NORMAL) PT INR APTT Fibrinogen Sodium 138 mmol/L 134 L mmol/L (137-145) (137-145) Potassium 2.9 L mmol/L 4.2 mmol/L (3.4-5.0) (3.4-5.0) Chloride 119 H mmol/L 109 H mmol/L (98-107) (98-107) Carbon Dioxide 13 L mmol/L 19 L mmol/L (22-30) (22-30) Anion
[2023-06-14 17:06] LABS: Rapid Plasma Reagin Non-Reactive (NonReactive)
[2023-06-14] MEDS: MAGNESIUM SULF 4 GM/WATER100ML 4 GM/100 ML BAG IVPB (17:30)
--- NOTE | 2023-06-14 17:30 | W.PM.PROC2 ---
Procedure Note - Detailed Date of Procedure 06/14/23 Pre-op Diagnosis Preeclampsia - Severe, Post-op Diagnosis Same Procedure Performed Low-transverse section Surgeon Ama Snyder MD Anesthesia Spinal Indications severe pree Findings Normal gestational maternal anatomy, average size infants for GA, normal Apgars. Description of Procedure The patient was taken the operating room. She was prepped and draped in dorsal supine position with a leftward tilt. This was done after spinal anesthetic was applied. A low-transverse skin incision was made and carried down till of the fascia with the knife. The fascial incision was made with the knife. The fascial incision was extended laterally with Bernal scissors. The fascia was tented upward superiorly and inferiorly the rectus muscles were dissected off bluntly. The rectus muscles were the midline. The preperitoneal fat and peritoneum were dissected open bluntly at the superior aspect of the rectus muscles. The peritoneal incision was extended superior and inferior with good position of bladder. The uterine incision was made with a scalpel down to the level of the amniotic cavity. The amniotic cavity was entered bluntly. The infants were delivered. The cord was clamped and cut and the infant was handed off to waiting pediatric staff. Cord bloods were obtained. The placenta was removed manually. The uterus was exteriorized. The uterus was cleared of all clots, debris and membranes. The uterus was closed in 0 Vicryl running lock fashion. An imbricating over a was placed along the incision line as well. the right fallopian tube was grasped in the ampullary region with a Therese. The mesosalpinx was cauterized and a window was created in the same area adjacent to the tube. The proximal distal ends of the isolated were ligated with 0 Vicryl. The ligated segment was transected and. The cut ends of the tube were cauterized. The contralateral tube was ligated in the same fashion The uterus was returned to the abdomen. The gutters were cleared of all clots and debris. The fascia was closed with 0 Vicryl running fashion. The subcutaneous tissue was irrigated pinpoint bleeders were cauterized. The skin was closed with subcuticular absorbable brook. The skin incision line was covered with glue. The patient tolerated the procedure well. She has taken recovery room in stable condition. Sponge lap and needle counts were correct x2. Complications No immediate complications Condition Stable Disposition PACU
[2023-06-14] MEDS: MAGNESIUM SULF 20GM/WATER500ML 500 ML 50 MG IV CONT (18:00)
[2023-06-14] MEDS: KETOROLAC 30 MG/ML VIAL (*BKC) IM (18:29)
[2023-06-14] MEDS: diphenhydrAMINE HCl INJ 50 MG/ML VIAL 25 MG IV PUSH (19:13)
[2023-06-14] MEDS: OXYTOCIN 30 UNITS/NS 500 ML 30 UNITS/500 ML BAG 125 UNITS IV CONT (19:22)
--- NOTE | 2023-06-14 20:02 | OBPPTRN ---
Patient transferred to post room # 290 via stretcher. Support person present. Oriented to unit, room, information board, rooming in, admission packet and security measures. Patient verbalizes understanding.
[2023-06-14] MEDS: ONDANSETRON INJ 4 MG/2 ML VIAL IV PUSH (21:08)
[2023-06-14] MEDS: HYDROcodone/acetaminophen (*CRX) 10-325 MG TABLET 1 TAB PO (21:09)
[2023-06-15] VITALS (9 sets, daily range): BP systolic 128–158; BP diastolic 80–94; PULSE 59–98; RESP 16; TEMP 36.4–37; O2SAT 97–100
[2023-06-15] MEDS: HYDROcodone/acetaminophen (*CRX) 10-325 MG TABLET 1 TAB PO (01:36)
[2023-06-15] MEDS: ONDANSETRON INJ 4 MG/2 ML VIAL IV PUSH ×2 (01:36→11:06)
[2023-06-15] MEDS: LACTATED RINGERS 1,000 ML 75 ML IV CONT (02:45)
[2023-06-15] MEDS: MAGNESIUM SULF 20GM/WATER500ML 500 ML 50 MG IV CONT (04:01)
[2023-06-15 05:33] LABS: Basophils Absolute Auto 0.1 K/mm3 (0.0-0.1); Basophils Percent Auto 0.3 % (0.2-1.2); Eosinophils Percent Auto 0.1 % (0-4.4); Hematocrit 25.4 % (37.0-47.0); Hemoglobin 7.6 g/dL (12.0-15.0); Immature Granulocyte Absolute 0.52 K/mm3 (0.00-0.031); Immature Granulocyte Percent A 3.3 % (0-0.5); Immature Platelet Fraction Pct 14.1 % (0.9-11.2); Lymphocytes Absolute Auto 1.46 K/mm3 (0.9-3.2); Lymphocytes Percent Auto 9.4 % (18.3-44.2); Mean Corpuscular HGB Conc 29.9 g/dl (32-36); Mean Corpuscular Hemoglobin 26.1 pg (26-34); Mean Corpuscular Volume 87.3 fl (80-100); Mean Platelet Volume 11.4 fl (7.4-10.4); Monocytes Absolute Auto 0.9 K/mm3 (0.1-0.6); Monocytes Percent Auto 5.9 % (2.6-8.5); Neutrophils Absolute Auto 12.6 K/mm3 (1.3-6.7); Nucleated Red Blood Cells Absolute Auto 0.1 K/mm3 (0.0-0.012); Nucleated Red Blood Cells Perc 0.6 % (0.0-0.2); Platelet Count Result 99 k/mm3 (150-375); Red Blood Count 2.91 M/mm3 (4.2-5.4); Red Cell Distribution Width 19.9 % (11.5-14.5); White Blood Count 15.6 K/mm3 (4.5-10.0)
[2023-06-15 06:44] LABS: Platelet Estimate Decreased (Adequate)
[2023-06-15 06:45] LABS: Anisocytosis 1+ (NORMAL); Hypochromasia 1+ (NORMAL); Schistocytes None Seen (NORMAL)
[2023-06-15 06:51] LABS: Magnesium > 20.0 mg/dL (1.6-2.3)
--- NOTE | 2023-06-15 07:23 | PM.OBPNVD ---
OB - PN: Subj Subjective Date/time seen: 06/15/23 07:23 Interval history: Feels hot and weak. mag level just back at 20 but drawn from arm with mag infusing. pulse ox placed immediately, sats at 100%, no SOB. Pt able to talk easily, coherent. BPs wnl to mildly elevated. plt 99 this am. Hgb 7.6. Babies in L2. Doing well. Patient comments: pain well controlled baby status: NICU [place] feeding status: breast and bottle feeding Narrative: POD 1 from primary CS. Doing well. Normal lochia. Eating, ambulating, vora out. OB - PN: Obj Data Labs 06/15/23 05:03 06/14/23 14:17 Labs: Laboratory Results - last 24 hr 06/14/23 06/14/23 06/14/23 07:32 07:35 14:17 WBC 12.3 H 8.4 RBC 3.51 L 2.50 L Hgb 9.3 L 6.7 L* Hct 30.0 L 21.6 L MCV 85.5 86.4 MCH 26.5 26.8 MCHC 31.0 L 31.0 L RDW 21.2 H 21.1 H Plt Count 110 L 74 L MPV 12.9 H 12.0 H Immature Gran % (Auto) Not Reportable Not Reportable Neut % (Auto) Not Reportable Not Reportable Lymph % (Auto) Not Reportable Not Reportable [place] % (Auto) Not Reportable Not Reportable Eos % (Auto) Not Reportable Not Reportable Baso % (Auto) Not Reportable Not Reportable Lymph # (Auto) Not Reportable Not Reportable [place] # (Auto) Not Reportable Not Reportable Eos # (Auto) Not Reportable Not Reportable Baso # (Auto) Not Reportable Not Reportable Abs Immat Gran (auto) Not Reportable Not Reportable Absolute Neuts (auto) Not Reportable Not Reportable Absolute Nucleated RBC Not Reportable Not Reportable Total Counted 100 100 Neutrophils % (Manual) 76 H 78 H Band Neutrophils % 1 2 Lymphocytes % (Manual) 13.0 L 11 L Monocytes % (Manual) 8 7 Eosinophils % (Manual) 1 1 Metamyelocytes % 1 Myelocytes % 1 Nucleated RBC % Not Reportable Not Reportable Abs Neuts (Manual) 9.47 H 6.72 Abs Lymphs (Manual) 1.59 0.92 L Abs Monocytes (Manual) 0.98 H 0.58 Absolute Eos (Manual) 0.12 0.08 Nucleated RBCs 1 Platelet Estimate Decreased Decreased % Immature Plt Fraction 14.4 H 11.2 Hypochromasia 1+ Anisocytosis Ovalocytes 1+ Schistocytes None seen None seen PT INR APTT Fibrinogen Sodium 138 134 L Potassium 2.9 L 4.2 Chloride 119 H 109 H Carbon Dioxide 13 L 19 L Anion Gap 6 L 6 L BUN 12 16 Creatinine 0.70 1.10 H Estim Creat Clear Calc Not Reportable 77 Estimated GFR > 60 > 60 Glucose 52 L* 61 L Uric Acid 7.0 10.6 H Calcium 5.9 L 8.4 Magnesium Total Bilirubin 0.3 0.5 AST 26 40 H ALT 10 14 Alkaline Phosphatase 172 H 246 H Total Protein 4.0 L 6.0 L Albumin 1.8 L 2.8 L U Random Total Protein > 600 Urine Creatinine 133.8 Protein/Creat Ratio 2 > 4.48 H RPR Blood Type Antibody Screen Crossmatch 06/14/23 06/14/23 06/15/23 15:10 15:34 05:03 WBC 11.7 H 15.6 H RBC 3.50 L 2.91 L Hgb 9.3 L 7.6 L Hct 29.8 L 25.4 L MCV 85.1 87.3 MCH 26.6 26.1 MCHC 31.2 L 29.9 L RDW 21.1 H 19.9 H Plt Count 105 L 99 L MPV Not Reportable 11.4 H Immature Gran % (Auto) Not Reportable 3.3 H Neut % (Auto) Not Reportable 81.0 H Lymph % (Auto) Not Reportable 9.4 L [place] % (Auto) Not Reportable 5.9 Eos % (Auto) Not Reportable 0.1 Baso % (Auto) Not Reportable 0.3 Lymph # (Auto) Not Reportable 1.46 [place] # (Auto) Not Reportable 0.9 H Eos # (Auto) Not Reportable 0.0 Baso # (Auto) Not Reportable 0.1 Abs Immat Gran (auto) Not Reportable 0.52 H Absolute Neuts (auto) Not Reportable 12.6 H Absolute Nucleated RBC Not Reportable 0.1 H Total Counted 100 Neutrophils % (Manual) 72 Band Neutrophils % Lymphocytes % (Manual) 19 Monocytes % (Manual) 7 Eosinophils % (Manual) Metamyelocytes % 1 Myelocytes % 1 Nucleated RBC % Not Reportable 0.6 H Abs Neuts (Manual) Abs Lymphs (Manual) 2.22 Ab
[2023-06-15 08:07] LABS: Magnesium 6.8 mg/dL (1.6-2.3)
--- NOTE | 2023-06-15 08:57 | WPDANESPN ---
Anes - Prog Note Post-Op Date/Time: 06/15/23 08:57 Cardiovascular status: other (Anemia, preeclampsia. high mag level) Respiratory status: normal Airway patency: baseline Mental status: baseline Post-Op hydration status: normal Vital Signs: Last Vital Signs Temp 37.0 C 06/15/23 05:00 Pulse 61 06/15/23 05:00 Resp 16 06/15/23 05:00 BP 130/86 06/15/23 05:00 Pulse Ox 99 06/15/23 05:00 O2 Del Method Room Air 06/14/23 20:40 Pain Score (VAS): 10 I/O: Intake & Output 06/14/23 06/15/23 06/15/23 23:59 07:59 15:59 Output Total 1117 Balance -1117 Laboratory Tests 06/15/23 05:03 06/14/23 14:17 06/14/23 06/14/23 06/14/23 14:17 15:10 15:34 WBC 8.4 11.7 H RBC 2.50 L 3.50 L Hgb 6.7 L* 9.3 L Hct 21.6 L 29.8 L MCV 86.4 85.1 MCH 26.8 26.6 MCHC 31.0 L 31.2 L RDW 21.1 H 21.1 H Plt Count 74 L 105 L MPV 12.0 H Not Reportable Immature Gran % (Auto) Not Reportable Not Reportable Neut % (Auto) Not Reportable Not Reportable Lymph % (Auto) Not Reportable Not Reportable [place] % (Auto) Not Reportable Not Reportable Eos % (Auto) Not Reportable Not Reportable Baso % (Auto) Not Reportable Not Reportable Lymph # (Auto) Not Reportable Not Reportable [place] # (Auto) Not Reportable Not Reportable Eos # (Auto) Not Reportable Not Reportable Baso # (Auto) Not Reportable Not Reportable Abs Immat Gran (auto) Not Reportable Not Reportable Absolute Neuts (auto) Not Reportable Not Reportable Absolute Nucleated RBC Not Reportable Not Reportable Total Counted 100 100 Neutrophils % (Manual) 78 H 72 Band Neutrophils % 2 Lymphocytes % (Manual) 11 L 19 Monocytes % (Manual) 7 7 Eosinophils % (Manual) 1 Metamyelocytes % 1 1 Myelocytes % 1 Nucleated RBC % Not Reportable Not Reportable Abs Neuts (Manual) 6.72 Abs Lymphs (Manual) 0.92 L 2.22 Abs Monocytes (Manual) 0.58 0.81 Absolute Eos (Manual) 0.08 Nucleated RBCs 1 Platelet Estimate Decreased Decreased % Immature Plt Fraction 11.2 12.7 H Hypochromasia Anisocytosis Ovalocytes 1+ 1+ Schistocytes None seen None seen PT 13.1 INR 1.0 APTT 29.7 Fibrinogen 393 Sodium 134 L Potassium 4.2 Chloride 109 H Carbon Dioxide 19 L Anion Gap 6 L BUN 16 Creatinine 1.10 H Estim Creat Clear Calc 77 Estimated GFR > 60 Glucose 61 L Uric Acid 10.6 H Calcium 8.4 Magnesium Total Bilirubin 0.5 AST 40 H ALT 14 Alkaline Phosphatase 246 H Total Protein 6.0 L Albumin 2.8 L RPR Non-reactive Blood Type O Positive Antibody Screen Negative Crossmatch See Detail 06/15/23 06/15/23 06/15/23 05:03 05:49 07:45 WBC 15.6 H RBC 2.91 L Hgb 7.6 L Hct 25.4 L MCV 87.3 MCH 26.1 MCHC 29.9 L RDW 19.9 H Plt Count 99 L MPV 11.4 H Immature Gran % (Auto) 3.3 H Neut % (Auto) 81.0 H Lymph % (Auto) 9.4 L [place] % (Auto) 5.9 Eos % (Auto) 0.1 Baso % (Auto) 0.3 Lymph # (Auto) 1.46 [place] # (Auto) 0.9 H Eos # (Auto) 0.0 Baso # (Auto) 0.1 Abs Immat Gran (auto) 0.52 H Absolute Neuts (auto) 12.6 H Absolute Nucleated RBC 0.1 H Total Counted Neutrophils % (Manual) Band Neutrophils % Lymphocytes % (Manual) Monocytes % (Manual) Eosinophils % (Manual) Metamyelocytes % Myelocytes % Nucleated RBC % 0.6 H Abs Neuts (Manual) Abs Lymphs (Manual) Abs Monocytes (Manual) Absolute Eos (Manual) Nucleated RBCs Platelet Estimate Decreased % Immature Plt Fraction 14.1 H Hypochromasia 1+ Anisocytosis 1+ Ovalocytes Schistocytes None seen PT INR APTT Fibrinogen Sodium Potassium Chloride Carbon Dioxide Anion Gap BUN Creatinine Estim Creat Clear Calc Estimated GFR Glucose Uric Acid Calcium Magnesium > 20.0 H 6.8 H T
--- NOTE | 2023-06-15 09:52 | PC.NURSE ---
0710 Magnesium stopped by Sarah Reinoso RN, was at 2 grams (50mls/hour) per hour. Stopped due to magnesium level was elevated and per Dr. Main (see lab). Pulse ox 100%. [address] Main that blood was collected for Magnesium level from arm receiving the transfusion and Magnesium was running, RN to redraw level and report to Dr. Main. Sodium Gluconate available if needed after lab repeated. 0745 Autumn Crump RN in patient's to draw lab. 08 Dr. Main called and notified Magnesium level was 6.8, per Dr. Main turn Magnesium back on but at a lower rate of 1.5 grams (37.5mls/hour) per hour. Order repeat CBC w/ Diff for tomorrow morning. 0829 This RN changed Magnesium order in computer from 2grams/hr (50mls/hr) to 1.5grams/hr (37.5mls/hr). 0840 This RN in patient room and Magnesium restarted at new rate, Ama Calvert RN in room to verify pump. When RN went to chart in the computer RN found that the previous bag of Magnesium was not scanned. Sarah Reinoso RN had the patient previously, she returns the next shift and will have her chart in the pt's MAR when she stopped the first bag and started the second.
[2023-06-15] MEDS: MULTIVIT/MIN/PREN/FOL AC/IRON TABLET 1 TAB PO (11:06)
[2023-06-15] MEDS: POLYSACCHARIDE IRON COMPLEX 150 MG CAPSULE PO ×2 (11:06→16:19)
[2023-06-15] MEDS: ACETAMINOPHEN 325 MG TABLET 650 MG PO ×2 (11:06→19:32)
--- NOTE | 2023-06-15 11:48 | PC.NURSE ---
Reported received this morning regarding patient wants to pump but later today. Primary RN states she has educated on protecting the milk supply with pumping as the infants have not stimulated the breast. 1115 -1120 Introductions were made, then consulted with patient to assess needs related to . There are three women in the room. One is assisting mother with in a non-conventional hold. One is burping an after a bottle. RN offered assistance twice and no one in the room moved or welcomed assistance, then the RN was informed that every woman in the room has breastfed their infants. Resources provided for inpatient with name written on the white board. Reported to the primary RN. 1150 - Primary RN reported mother wants to wait on pumping.
[2023-06-15] MEDS: LACTATED RINGERS 1,000 ML 87.5 ML IV CONT (11:55)
[2023-06-15] MEDS: DOCUSATE SODIUM 100 MG CAPSULE PO (16:19)
[2023-06-15] MEDS: IBUPROFEN 600 MG TABLET PO (16:19)
[2023-06-15] MEDS: LABETALOL HCL 100 MG TABLET 200 MG PO (16:20)
[2023-06-16] VITALS (16 sets, daily range): BP systolic 112–146; BP diastolic 66–85; PULSE 68–94; RESP 12–20; TEMP 36.5–37.8; O2SAT 99–100
[2023-06-16] MEDS: ACETAMINOPHEN 325 MG TABLET 650 MG PO ×2 (04:30→12:45)
[2023-06-16 04:54] LABS: Basophils Percent Auto 0.2 % (0.2-1.2); Eosinophils Absolute Auto 0.1 K/mm3 (0-0.3); Eosinophils Percent Auto 0.6 % (0-4.4); Immature Granulocyte Percent A 5.6 % (0-0.5); Lymphocytes Percent Auto 15.3 % (18.3-44.2); Mean Corpuscular HGB Conc 31.9 g/dl (32-36); Mean Corpuscular Volume 84.5 fl (80-100); Mean Platelet Volume 11.9 fl (7.4-10.4); Monocytes Absolute Auto 0.9 K/mm3 (0.1-0.6); Monocytes Percent Auto 7.5 % (2.6-8.5); Neutrophils Absolute Auto 8.8 K/mm3 (1.3-6.7); Neutrophils Percent Auto 70.8 % (45.5-73.1); Nucleated Red Blood Cells Absolute Auto 0.2 K/mm3 (0.0-0.012); Nucleated Red Blood Cells Perc 1.3 % (0.0-0.2); Platelet Count Result 120 k/mm3 (150-375); Red Blood Count 2.26 M/mm3 (4.2-5.4); Red Cell Distribution Width 21.2 % (11.5-14.5); White Blood Count 12.4 K/mm3 (4.5-10.0)
[2023-06-16 05:42] LABS: Hemoglobin 6.1 g/dL (12.0-15.0)
[2023-06-16 05:43] LABS: Hematocrit 19.1 % (37.0-47.0)
[2023-06-16 05:49] LABS: Platelet Estimate Adequate (Adequate)
[2023-06-16 05:50] LABS: Hypochromasia 2+ (NORMAL); Schistocytes None Seen (NORMAL)
--- NOTE | 2023-06-16 07:44 | P.PNOB_ITS ---
OB - PN: Subj Subjective Date/time seen: 06/16/23 07:44 Patient comments: incisional pain and tolerating diet baby status: doing well and bottle feeding well Narrative: Exhausted. Hgb 6.1. Plt improved to 120. BPs stable. UOP 4690/24h yesterday and 900 in last 6h. Denies any PreE sx. OB - PN: Obj Data Labs 06/16/23 04:30 06/14/23 14:17 Labs: Laboratory Results - last 24 hr 06/14/23 06/15/23 06/16/23 15:10 07:45 04:30 WBC 12.4 H RBC 2.26 L Hgb 6.1 L* Hct 19.1 L* MCV 84.5 MCH 27.0 MCHC 31.9 L RDW 21.2 H Plt Count 120 L MPV 11.9 H Immature Gran % (Auto) 5.6 H Neut % (Auto) 70.8 Lymph % (Auto) 15.3 L [place] % (Auto) 7.5 Eos % (Auto) 0.6 Baso % (Auto) 0.2 Lymph # (Auto) 1.90 [place] # (Auto) 0.9 H Eos # (Auto) 0.1 Baso # (Auto) 0.0 Abs Immat Gran (auto) 0.70 H Absolute Neuts (auto) 8.8 H Absolute Nucleated RBC 0.2 H Nucleated RBC % 1.3 H Platelet Estimate Adequate Hypochromasia 2+ Schistocytes None seen Magnesium 6.8 H Blood Type O Positive Antibody Screen Negative Crossmatch See Detail OB - PN A/P Assessment and Plan (1) Anemia due to blood loss, acute: Code(s): D62 - Acute posthemorrhagic anemia Status: Acute (2) Severe preeclampsia: Code(s): O14.10 - Severe pre-eclampsia, unspecified trimester Status: Acute (3) Twin delivery by : Code(s): O30.009 - Twin , unspecified number of placenta and unspecified number of amniotic sacs, unspecified trimester Status: Acute Plan day: 2 Comments: 2 u pRBCs pending for severe anemia platelets improving no further oozing from incision NEO to come out tomorrow circumcisions tomorrow BPs stable on labetalol 200 BID Time Spent With Patient Time: Total time spent is greater than 50% in coordination of care (as documented) at patient's floor/unit and/or counseling patient: Exam Narrative: NAD abdomen soft, appropriately tender, incision CDI Extremities nontender with 1+ edema
[2023-06-16] MEDS: diphenhydrAMINE HCl INJ 50 MG/ML VIAL 25 MG IV PUSH (07:48)
[2023-06-16] MEDS: TUBING, BLOOD PLUM PUMP TUBING 1 EACH XX (07:53)
[2023-06-16] MEDS: SODIUM CHLORIDE 0.9% IV 250 ML 30 ML IV CONT (07:53)
[2023-06-16] MEDS: POLYSACCHARIDE IRON COMPLEX 150 MG CAPSULE PO ×2 (08:11→17:57)
[2023-06-16] MEDS: DOCUSATE SODIUM 100 MG CAPSULE PO ×2 (08:11→17:57)
[2023-06-16] MEDS: MULTIVIT/MIN/PREN/FOL AC/IRON TABLET 1 TAB PO (08:11)
[2023-06-16] MEDS: LABETALOL HCL 100 MG TABLET 200 MG PO ×2 (08:12→21:11)
[2023-06-16] MEDS: IBUPROFEN 600 MG TABLET PO ×3 (08:40→23:54)
[2023-06-16] MEDS: SIMETHICONE 80 MG TAB.CHEW PO ×4 (08:40→23:54)
[2023-06-16] MEDS: HYDROcodone/acetaminophen (*CRX) 5-325 MG TABLET 1 TAB PO ×2 (10:06→19:08)
[2023-06-16] MEDS: HYDROcodone/acetaminophen (*CRX) 10-325 MG TABLET 1 TAB PO (22:18)
[2023-06-17] VITALS (7 sets, daily range): BP systolic 125–144; BP diastolic 75–89; PULSE 57–78; RESP 16; TEMP 36.4–37.6; O2SAT 96–99
[2023-06-17] MEDS: HYDROcodone/acetaminophen (*CRX) 10-325 MG TABLET 1 TAB PO ×5 (01:36→20:57)
[2023-06-17] MEDS: SIMETHICONE 80 MG TAB.CHEW PO ×4 (04:05→19:23)
--- NOTE | 2023-06-17 05:16 | PM.OBPNVD ---
OB - PN: Subj Subjective Date/time seen: 06/17/23 05:16 Patient comments: pain well controlled, tolerating diet and flatus present feeding status: exclusively bottle feeding Narrative: Bps 125-146/71-85 last 24 hrs. Denies preE sx. OB - PN: Obj Data Labs 06/16/23 04:30 06/14/23 14:17 Labs: Laboratory Results - last 24 hr 06/14/23 06/16/23 15:10 04:30 WBC 12.4 H RBC 2.26 L Hgb 6.1 L* Hct 19.1 L* MCV 84.5 MCH 27.0 MCHC 31.9 L RDW 21.2 H Plt Count 120 L MPV 11.9 H Immature Gran % (Auto) 5.6 H Neut % (Auto) 70.8 Lymph % (Auto) 15.3 L [place] % (Auto) 7.5 Eos % (Auto) 0.6 Baso % (Auto) 0.2 Lymph # (Auto) 1.90 [place] # (Auto) 0.9 H Eos # (Auto) 0.1 Baso # (Auto) 0.0 Abs Immat Gran (auto) 0.70 H Absolute Neuts (auto) 8.8 H Absolute Nucleated RBC 0.2 H Nucleated RBC % 1.3 H Platelet Estimate Adequate Hypochromasia 2+ Schistocytes None seen Blood Type O Positive Antibody Screen Negative Crossmatch See Detail OB - PN A/P Plan day: 3 Comments: CBC pending s/p 2 units pRBCs yesterday BPs stable on 200 labetalol BID would like DC tomorrow though babies will be staying for weight gain Time Spent With Patient Time: Total time spent is greater than 50% in coordination of care (as documented) at patient's floor/unit and/or counseling patient: Exam Narrative: NAD abdomen soft, appropriately tender, incision CDI Extremities nontender with 1+ edema
[2023-06-17 05:44] LABS: Hematocrit 26.1 % (37.0-47.0); Hemoglobin 8.4 g/dL (12.0-15.0); Mean Corpuscular HGB Conc 32.2 g/dl (32-36); Mean Corpuscular Hemoglobin 27.8 pg (26-34); Mean Corpuscular Volume 86.4 fl (80-100); Platelet Count Result 151 k/mm3 (150-375); Red Blood Count 3.02 M/mm3 (4.2-5.4); Red Cell Distribution Width 20.2 % (11.5-14.5); White Blood Count 14.8 K/mm3 (4.5-10.0)
[2023-06-17 06:15] LABS: Total Cells Counted 100
[2023-06-17 06:16] LABS: Anisocytosis 2+ (NORMAL); Band Neutrophils Percent 1 % (0-6); Burr Cells 1+ (NORMAL); Lymphocytes Absolute Manual 2.36 K/mm3 (1.1-4.5); Lymphocytes Percent Manual 16 % (18-44); Metamyelocytes Percent 2 %; Monocytes Absolute Manual 1.33 K/mm3 (0.1-0.90); Monocytes Percent Manual 9 % (3-9); Neutrophils Percent Manual 72 % (46-73); Nucleated Red Blood Cells 1 %; Schistocytes None Seen (NORMAL)
[2023-06-17 06:26] LABS: Platelet Estimate Adequate (Adequate)
[2023-06-17] MEDS: HYDROcodone/acetaminophen (*CRX) 5-325 MG TABLET 1 TAB PO ×2 (07:22→10:42)
[2023-06-17] MEDS: POLYSACCHARIDE IRON COMPLEX 150 MG CAPSULE PO ×2 (07:22→16:31)
[2023-06-17] MEDS: DOCUSATE SODIUM 100 MG CAPSULE PO ×2 (07:22→16:31)
[2023-06-17] MEDS: IBUPROFEN 600 MG TABLET PO ×3 (07:22→19:23)
[2023-06-17] MEDS: MULTIVIT/MIN/PREN/FOL AC/IRON TABLET 1 TAB PO (10:08)
[2023-06-17] MEDS: LABETALOL HCL 100 MG TABLET 200 MG PO ×2 (10:08→20:56)
[2023-06-17] MEDS: ONDANSETRON INJ 4 MG/2 ML VIAL IV PUSH (12:09)
[2023-06-17] MEDS: FAMOTIDINE 20 MG TABLET PO (16:31)
[2023-06-17] MEDS: SERTRALINE HCL 50 MG TABLET PO (16:31)
[2023-06-18 01:25] VITALS: BP 136/85; PULSE 68; RESP 16; TEMP 37; O2SAT 96
[2023-06-18] MEDS: HYDROcodone/acetaminophen (*CRX) 5-325 MG TABLET 1 TAB PO ×2 (01:34→07:56)
[2023-06-18] MEDS: SIMETHICONE 80 MG TAB.CHEW PO ×2 (01:35→04:27)
[2023-06-18] MEDS: IBUPROFEN 600 MG TABLET PO ×2 (01:35→07:56)
[2023-06-18] MEDS: HYDROcodone/acetaminophen (*CRX) 10-325 MG TABLET 1 TAB PO (04:27)
[2023-06-18 04:30] VITALS: BP 147/93; PULSE 62; RESP 16; TEMP 36.8; O2SAT 100
[2023-06-18] MEDS: ONDANSETRON INJ 4 MG/2 ML VIAL IV PUSH (07:02)
--- NOTE | 2023-06-18 07:38 | PM.OBPNVD ---
OB - PN: Subj Subjective Date/time seen: 06/18/23 07:38 Patient comments: no complaints and pain well controlled baby status: doing well (but not yet gaining weight) [place] feeding status: exclusively bottle feeding Narrative: would like DC while staying as guest. BPs remain stable on labetalol. OB - PN: Obj Data Labs 06/17/23 05:30 06/14/23 14:17 OB - PN A/P Plan day: 4 Plan: discharge home Comments: BP check one week. Time Spent With Patient Time: Total time spent is greater than 50% in coordination of care (as documented) at patient's floor/unit and/or counseling patient: Exam Narrative: NAD abdomen soft, appropriately tender, incision CDI Extremities nontender with 1+ edema
--- NOTE | 2023-06-18 07:48 | PM.OBDSVD ---
DS: Admitting Diagnosis Discharge Date 06/18/23 Admitting Diagnosis twin IUP 36w, severe PreEclampsia DS: Discharge Diagnosis Discharge Diagnosis (1) Twin delivery by : Code(s): O30.009 - Twin , unspecified number of placenta and unspecified number of amniotic sacs, unspecified trimester Status: Acute (2) Severe preeclampsia: Code(s): O14.10 - Severe pre-eclampsia, unspecified trimester Status: Acute (3) Anemia due to blood loss, acute: Code(s): D62 - Acute posthemorrhagic anemia Status: Acute OB - DS: Summary Hospital Course Hospital Course: Marianne was admitted for severe PreEclampsia at 36.4 with di/di twins. She was delivered via section and had a bilateral salpingectomy at the time. Her platelets were hovering around 100 at the time of delivery. She received magnesium sulfate for seizure prophylaxis. On POD she required 2 units of pRBCs for a hemoglobin of 6. She was started on labetalol 200 BID for blood pressure control. She continued to improve in all aspects and was stable for discharge on POD 4. OB Procedures : NST and Ultrasound OB Procedures Intrapartum: and Tubal ligation OB Procedures: : Transfusion Peripartum Data Infant Delivery Method: Section Procedures: Procedures Operation Date: 06/14/23 15:40 Actual Procedure Side Surgeon p Section with bilateral tubal Bilateral RJamey Snyder MD complications: transfusion Status at Discharge Functional status at discharge: independent ambulation Time Spent with Patient Time attestation: Total time spent providing and/or coordinating discharge services: Exam Narrative: NAD abdomen soft, appropriately tender, incision CDI DS: Data Data Completed and Pending Pending studies at discharge: Pending at discharge 06/14/23 18:11 Surgical [PTH] Routine Discharge Plan Discharge Attending physician on discharge: Roopa Main Discharging Clinician: Roopa Main Anticipated Discharge Date/Time: 06/18/23 07:42 Patient Disposition: Home, Self-Care Activity: may drive after 2 weeks and pelvic rest Diet: regular Patient Instructions: Antibiotic Form Stand Alone Forms: General Discharge Information Follow-up/Referrals: Roopa Main MD [Physician] - 1 Week Discharge Medications: New hydrocodone-acetaminophen 5-325 mg Tablet 1 tablet PO Q4-5H PRN (Reason: Moderate Pain (4-6)) Qty: 30 0RF docusate sodium 100 mg Capsule 100 mg PO BID Qty: 60 0RF ibuprofen 600 mg Tablet 600 mg PO Q6H PRN (Reason: Cramping) Qty: 60 0RF labetalol 100 mg Tablet 200 mg PO Q12HR Qty: 60 0RF Continued sertraline 50 mg Tablet 50 mg PO DAILY prenat.vits,kelly,kmv-dipl-hczce Tablet 1 tablet PO DAILY famotidine [Pepcid] 20 mg Tablet 20 mg PO DAILY Qty: 30 3RF Discontinued ursodiol 500 mg tablet 500 mg PO BID valacyclovir 500 mg tablet 500 mg PO DAILY nitrofurantoin monohyd/m-cryst [Macrobid] 100 mg capsule 100 mg PO Q12H 5 Days Qty: 10 0RF Rx Instructions: must administer with a meal/food Date of admission: 06/14/23 14:55 Primary Care Provider: 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
[2023-06-18 07:55] VITALS: BP 139/75; PULSE 63; PULSE 69; RESP 18; TEMP 36.7; O2SAT 100
[2023-06-18] MEDS: MULTIVIT/MIN/PREN/FOL AC/IRON TABLET 1 TAB PO (07:55)
[2023-06-18] MEDS: SERTRALINE HCL 50 MG TABLET PO (07:55)
[2023-06-18] MEDS: LABETALOL HCL 100 MG TABLET 200 MG PO (07:55)
[2023-06-18] MEDS: POLYSACCHARIDE IRON COMPLEX 150 MG CAPSULE PO (07:55)
[2023-06-18] MEDS: FAMOTIDINE 20 MG TABLET PO (07:55)
[2023-06-18] MEDS: ACETAMINOPHEN 325 MG TABLET 650 MG PO (11:20)
--- NOTE | 2023-06-18 12:00 | PC.NURSE ---
Patient to view the discharge video Mother & Baby Care, The First Two Weeks online. Patient was given the opportunity and encouraged to ask questions. Patient verbalized understanding of information shared and has been given the mother/baby guide for home reference.
[2023-06-18 12:01] VITALS: BP 139/89; PULSE 71; RESP 16; TEMP 36.8; O2SAT 100
--- NOTE | 2023-06-18 12:20 | PC.NURSE ---
Patient discharged to No Care Bed, as babies are not being discharged now. Dietary notified.
[2023-06-20 14:39] VITALS: BP 140/87; PULSE 74; RESP 18; TEMP 37; O2SAT 100
== END 2023-06-18 12:20 | disposition home or self-care (01) | DRG 783 ==
LOC: ANHLDR 15:09 → ANHOB2 20:27
PROVIDERS: Admitting Provider Obstetrics & Gynecology; Visit Provider Obstetrics & Gynecology
PROC: 10D00Z1 Extraction of Products of Conception, Low, Open Approach (ICD-10-PCS; CPT 59514; principal; 2023-06-14 15:40)
DX: O30.043 Twin pregnancy, dichorionic/diamniotic, third trimester (principal); O60.14X0 Preterm labor third trimester with preterm delivery third trimester, not applicable or unspecified; Z30.2 Encounter for sterilization; O13.4 Gestational [pregnancy-induced] hypertension without significant proteinuria, complicating childbirth; O14.14 Severe pre-eclampsia complicating childbirth; O99.02 Anemia complicating childbirth; D64.89 Other specified anemias; Z3A.36 36 weeks gestation of pregnancy; Z37.2 Twins, both liveborn
CPT/HCPCS: 36415; 36430; 71046; 76815; 80053; 81001; 82570; 83735; 84156; 84550; 85025; 85055; 85384; 85610; 85730; 86592; 86850; 86900; 86901; 86923; 87086; 88302; 88307; 93970; 96361; 96374; 96375; 96376; A9270; G0378; G0379; J0612; J0696; J1200; J1756; J1885; J2270; J2274; J2405; J2590; J3010; J3475; J7050; J7120; P9016

== ENCOUNTER 2023-06-24 11:41 | Observation (INO) | payer OTHER, SELFPAY ==
--- NOTE | 2023-06-24 12:03 | PC.NURSE ---
Patient admitted to OB observation unit after calling OB exchange and speaking with MD. Patient has complaints of diarrhea since Sunday and sweatiness, especially at night. Patient denies having any vision changes, edema, headache, shortness of breath, or cough. Verbal orders received for UA, CBC, and COVID swab.
[2023-06-24 12:20] VITALS: PULSE 46; O2SAT 86
[2023-06-24 12:21] VITALS: BP 126/79; PULSE 74
[2023-06-24 12:26] VITALS: BMI 34.9
[2023-06-24 12:27] LABS: Basophils Absolute Auto 0.1 K/mm3 (0.0-0.1); Basophils Percent Auto 0.9 % (0.2-1.2); Eosinophils Absolute Auto 0.2 K/mm3 (0-0.3); Eosinophils Percent Auto 2.1 % (0-4.4); Hematocrit 35.2 % (37.0-47.0); Hemoglobin 11.2 g/dL (12.0-15.0); Immature Granulocyte Absolute 0.43 K/mm3 (0.00-0.031); Immature Granulocyte Percent A 4.8 % (0-0.5); Lymphocytes Absolute Auto 2.78 K/mm3 (0.9-3.2); Lymphocytes Percent Auto 30.8 % (18.3-44.2); Mean Corpuscular HGB Conc 31.8 g/dl (32-36); Mean Corpuscular Hemoglobin 27.5 pg (26-34); Mean Corpuscular Volume 86.3 fl (80-100); Mean Platelet Volume 9.2 fl (7.4-10.4); Monocytes Absolute Auto 0.6 K/mm3 (0.1-0.6); Monocytes Percent Auto 6.9 % (2.6-8.5); Neutrophils Absolute Auto 4.9 K/mm3 (1.3-6.7); Neutrophils Percent Auto 54.5 % (45.5-73.1); Platelet Count Result 286 k/mm3 (150-375); Red Blood Count 4.08 M/mm3 (4.2-5.4); Red Cell Distribution Width 18.9 % (11.5-14.5)
--- NOTE | 2023-06-24 12:27 | LDADM ---
This patient, Marianne Fox, was admitted to OB Post 116 on 06/24/23 at 11:41. Plans for labor, pain management and were discussed with patient. Patient/family oriented to hospital policies and general routines including ID bracelet, bed and alarms, visiting hours, pain management, procedures, bathroom and other care routines, personal items, smoking policy, room service/diet and guest tray routines, security routines, and visiting hours. Patient/Family are encouraged to report perceived risks to care and to ask questions if they do not understand what they are told or what they should do. See OBIX for further documentation.
[2023-06-24 12:34] VITALS: PULSE 83; O2SAT 100
[2023-06-24 12:35] VITALS: BP 131/79; PULSE 72
[2023-06-24 13:02] LABS: SARS-CoV-2 RNA PCR Negative (Negative)
[2023-06-24 13:06] LABS: Bacteria Urine 1+ /hpf; Need Manual Microscopic Reviewed; Non Pathogenic Casts 0-2; RBC Urine >100 /hpf (0-2); Squamous Epithelial Cell Urine Moderate /hpf (Few); WBC Urine >100 /hpf
[2023-06-24 13:17] LABS: Appearance Urine Cloudy (Clear); Bilirubin Urine 1+ (Negative); Blood Urine 3+ (Negative); Glucose Urine UA Negative (Negative); Ketones Urine Negative (Negative); Leukocyte Esterase Ur 2+ LEU/UL (Negative); Nitrate Urine Negative (Negative); Protein Urine 3+ mg/dL (Negative); Specific Grav Ur 1.025 (1.001-1.035); Urobilinogen Urine 0.2 mg/dL (<2.0); pH Urine 5.5 (5.0-9.0)
[2023-06-24 13:18] LABS: Color Urine Light Red (Yellow)
[2023-06-24 13:19] LABS: Add Urine Microscopic? YES
--- NOTE | 2023-06-24 13:21 | PC.NURSE ---
Spoke with MD on phone at 1320 regarding lab results. Verbal orders given for discharge. Patient agrees with plan of care at this time.
--- NOTE | 2023-07-16 20:58 | PM.OBTRLD ---
OB - Triage/Final Diagnosis Visit Information Comments/Additional reasons for admission: I have assessed the risk for this patient, Marianne Fox, and determined that she would benefit from observation care. Evaluation Laboratory results: Laboratory Tests 06/24/23 12:15 WBC 9.0 RBC 4.08 L Hgb 11.2 L Hct 35.2 L MCV 86.3 MCH 27.5 MCHC 31.8 L RDW 18.9 H Plt Count 286 D MPV 9.2 Immature Gran % (Auto) 4.8 H Neut % (Auto) 54.5 Lymph % (Auto) 30.8 [place] % (Auto) 6.9 Eos % (Auto) 2.1 Baso % (Auto) 0.9 Lymph # (Auto) 2.78 [place] # (Auto) 0.6 Eos # (Auto) 0.2 Baso # (Auto) 0.1 Abs Immat Gran (auto) 0.43 H Absolute Neuts (auto) 4.9 Absolute Nucleated RBC 0.0 Nucleated RBC % 0.0 Urine Color Light red H Urine Appearance Cloudy H Urine pH 5.5 Ur Specific [place] 1.025 Urine Protein 3+ H Urine Glucose (UA) Negative Urine Ketones Negative Ur Blood (Man) 3+ H Urine Nitrate Negative Urine Bilirubin 1+ H Urine Urobilinogen 0.2 Add Ur Microanalysis Reviewed Leukocyte Esterase Rfl 2+ H Urine RBC >100 H Urine WBC >100 H Ur Squamous Epith Cells Moderate Urine Bacteria 1+ H Urine Casts 0-2 SARS-CoV-2 RNA (RT-PCR) Negative Final Diagnosis (1) Diarrhea: Qualifiers: Diarrhea type: unspecified type Qualified Code(s): R19.7 - Diarrhea, unspecified Code(s): R19.7 - Diarrhea, unspecified Status: Acute
== END 2023-06-24 13:33 | disposition home or self-care (01) ==
PROVIDERS: Admitting Provider Obstetrics & Gynecology; Visit Provider Obstetrics & Gynecology
DX: O99.619 Diseases of the digestive system complicating pregnancy, unspecified trimester (principal); R19.7 Diarrhea, unspecified; Z3A.00 Weeks of gestation of pregnancy not specified
CPT/HCPCS: 36415; 81001; 85025; 87086; 87635; G0378; G0379

== ENCOUNTER 2024-01-19 18:45 | Emergency (ER) | payer OTHER, SELFPAY ==
[2024-01-19 18:47] VITALS: BP 121/63; PULSE 73; RESP 18; TEMP 36.4; O2SAT 100
--- NOTE | 2024-01-19 19:01 | ED.ANIMALBIT ---
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 complaint: animal bite Onset (ago): day(s) Animal: cat Description of animal: household pet Related Data Patient tetanus UTD: Yes Home Medications Medication Instructions Recorded Confirmed sertraline 50 mg tablet 50 mg PO DAILY 04/12/23 01/19/24 Allergies Allergy/AdvReac Type Severity Reaction Status Date / Time morphine AdvReac Nausea Verified 01/19/24 19:02 Review of Systems Review of Systems: All systems reviewed & are unremarkable except as noted in HPI and below PMFSH Past Medical History Medical History 27 weeks gestation of Edema Pre-eclampsia Social History Social History Smoking status: Never smoker Lack of Transportation: No Lack of Food: Never True Current Housing: I Have Housing Concerned About Future Housing: YES Difficulty Paying Gas/Electric Bills: No Difficulty Paying for Meds: No Currently Unemployed: No Education: High School Diploma/GED Difficulty w/ Childcare or Family Care: No Exam Const: General: healthy appearing Nutritional Appearance: well nourished Chest: Chest palpation & inspection: normal inspection of the chest Resp: Effort & Inspection: normal respiratory effort Auscultation: clear to auscultation bilaterally Cardio: Rate: regular rate Rhythm: regular rhythm Skin: Wounds: wounds noted Other: Puncture wounds on the right forearm with an area of erythema warmth and tenderness. Extrem: General: normal to inspection Psych: Mental Status: mental status grossly normal Course Course Emergency Course: Patient presents with a cat bite is up-to-date with her tetanus shot and will administer a dose of p.o. Augmentin and sent prescription to patient's pharmacy. Vital Signs Vital signs: Vital Signs Temperature 36.4 C L 01/19/24 18:47 Pulse Rate 73 01/19/24 18:47 Respiratory Rate 18 01/19/24 18:47 Blood Pressure 121/63 01/19/24 18:47 Pulse Oximetry 100 01/19/24 18:47 Oxygen Delivery Room Air 01/19/24 18:47 Temperature 36.4 C L 01/19/24 18:47 Pulse Rate 73 01/19/24 18:47 Respiratory Rate 18 01/19/24 18:47 Blood Pressure 121/63 01/19/24 18:47 Pulse Oximetry 100 01/19/24 18:47 Oxygen Delivery Room Air 01/19/24 18:47 Critical Care Time Critical Care Time Critical Care Time: No Discharge Plan Discharge Clinical Impression: Animal bite Patient Disposition: Home, Self-Care Condition: Stable Instructions: Antibiotic Form, Animal Bite (ED) Additional Instructions: can take Tylenol or Motrin as needed, take antibiotics as prescribed and can use Neosporin to affected areas daily x3 days and follow with primary care physician as scheduled. Prescriptions: New amoxicillin-pot clavulanate [Augmentin] 500-125 mg tablet 1 tablet PO TID Qty: 30 0RF No Action sertraline 50 mg Tablet 50 mg PO DAILY ibuprofen 600 mg Tablet 600 mg PO Q6H PRN (Reason: Cramping) Qty: 60 0RF famotidine [Pepcid] 20 mg Tablet 20 mg PO DAILY Qty: 30 3RF Follow-up/Referrals: UNKNOWN,DOCTOR [Primary Care Provider] - Time of Disposition: 19:04
[2024-01-19] MEDS: AMOXICILLIN/CLAVULANATE K 875-125 MG TAB 1 TABLET PO (19:07)
== END 2024-01-19 19:13 | disposition home or self-care (01) ==
PROVIDERS: Emergency Provider Emergency Medicine
DX: S51.851A Open bite of right forearm, initial encounter (principal); W55.01XA Bitten by cat, initial encounter
CPT/HCPCS: 99283; A9270

== ENCOUNTER 2024-07-29 06:06 | Emergency (ER) | payer SELFPAY ==
[2024-07-29] VITALS (10 sets, daily range): BP systolic 83–128; BP diastolic 39–96; PULSE 65–85; RESP 16–20; TEMP 36.6–36.8; O2SAT 97–100
--- NOTE | ~2024-07-29 | CT_ITS ---
CT abdomen pelvis w con Ordering provider: Keven Galvin MD History: 24 years Female with . MID TO UPPER abdominal pain/HX OF OVARIAN CYSTS . Comparison: None. Technique: CT abdomen and pelvis with IV and without oral contrast. Automated exposure control and it erative reconstruction technique were employed. The dose-length product was 275.28 mGy-cm. 100 mL Omn ipaque 350 was given IV. Findings: VISUALIZED LOWER CHEST: Normal. UPPER ABDOMINAL ORGANS: Liver: Normal. Gallbladder: Normal. Spleen: Normal. Splenules are seen adjacent to the spleen. Stomach/duodenum: Normal. Pancreas: Normal. Adrenals: Normal. Kidneys: Normal. PELVIC ORGANS: The bladder is normal and is slightly underfilled. Uterus: Normal. Ruptured Right ovarian cyst is noted. BOWEL AND MESENTERY: Colon: No evidence of diverticulitis. Fecal material is seen in the rectosigmoid and right side of th e colon. The appendix is slightly thickened and measures 1 cm.Minimal fat stranding seen in the right lower qu adrant. Clinical correlation for acute appendicitis is advised. Small Bowel: Normal. No obstruction. Peritoneum/mesentery: No free air or free fluid. No mesenteric lymphadenopathy. RETROPERITONEUM: Normal aorta. No retroperitoneal lymphadenopathy. MUSCULOSKELETAL: Superficial soft tissues: The superficial soft tissues are normal. Bones: Normal appearances of the spine. Bilateral sacroiliacs. IMPRESSION: 1. Highly suggestive of acute appendicitis. Clinical correlation advised. 2. Possible constipation. Reviewed, dictated and finalized at location A.
--- NOTE | 2024-07-29 06:14 | ED.ABDPAIN ---
HPI - Abdominal Pain General Chief Complaint: Abdominal Pain <eKven Galvin MD - Last Filed: 07/30/24 07:08> Stated Complaint: abdominal pain <Keven Galvin MD - Last Filed: 07/30/24 07:08> Time Seen by Provider: 07/29/24 08:24 <Keven Galvin MD - Last Filed: 07/30/24 07:08> Source: patient <Keven Galvin MD - Last Filed: 07/30/24 07:08> Mode of arrival: ambulatory <Keven Galvin MD - Last Filed: 07/30/24 07:08> Limitations: no limitations <Keven Galvin MD - Last Filed: 07/30/24 07:08> History of Present Illness HPI narrative: 24-year-old female with a history of asthma, anxiety, depression, Ovarian cyst rupture status post laparoscopic repair, status post BTL, cholestasis of , presents to the ED with 2 hour history of -- upper abdominal pain. The pain is diffuse. No exacerbating or relieving factors. Patient has nausea without any vomiting or diarrhea. no fever or chills <Keven Galvin MD - Last Filed: 07/30/24 07:08> MD elicited complaint: abdominal pain <Keven Galvin MD - Last Filed: 07/30/24 07:08> Onset (ago): hour(s) ( 2 hours) <Keven Galvin MD - Last Filed: 07/30/24 07:08> Pain Consistency: intermittent <Keven Galvin MD - Last Filed: 07/30/24 07:08> Location: diffuse <Keven Galvin MD - Last Filed: 07/30/24 07:08> Severity: severe <Keven Galvin MD - Last Filed: 07/30/24 07:08> Quality: aching <Keven Galvin MD - Last Filed: 07/30/24 07:08> Radiation: none <Keven Galvin MD - Last Filed: 07/30/24 07:08> Migration to: no migration <Keven Galvin MD - Last Filed: 07/30/24 07:08> Exacerbating factors: nothing <Keven Galvin MD - Last Filed: 07/30/24 07:08> Relieving factors: nothing <Keven Galvin MD - Last Filed: 07/30/24 07:08> Associated symptoms: nausea <Keven Galvin MD - Last Filed: 07/30/24 07:08> Related Data Date of Last Menstrual Period: 07/10/24 <Keven Galvin MD - Last Filed: 07/30/24 07:08> Patient : No <Keven Galvin MD - Last Filed: 07/30/24 07:08> Home Medications: Home Medications Medication Instructions Recorded Confirmed ondansetron HCl 4 mg tablet 4 mg PO BID 02/08/23 06/13/23 pantoprazole 40 mg tablet,delayed 40 mg PO DAILY 02/08/23 06/13/23 release sertraline 50 mg tablet 50 mg PO DAILY 02/08/23 06/13/23 sertraline 50 mg tablet (Zoloft) 50 mg PO DAILY 04/12/23 07/29/24 cetirizine 10 mg tablet (Zyrtec) 10 mg PO DAILY PRN Sinus Symptoms 07/29/24 07/29/24 famotidine 20 mg tablet 20 mg PO DAILY 07/29/24 07/29/24 <Keven Galvin MD - Last Filed: 07/30/24 07:08> Allergies/Adverse Reactions: Allergies Allergy/AdvReac Type Severity Reaction Status Date / Time morphine AdvReac Nausea Verified 07/29/24 12:27 <Keven Galvin MD - Last Filed: 07/30/24 07:08> Review of Systems Review of Systems: All systems reviewed & are unremarkable except as noted in HPI and below <Keven Galvin MD - Last Filed: 07/30/24 07:08> Constitutional: Constitutional: Reports as per HPI and Reports no additional constitutional complaints <Keven Galvin MD - Last Filed: 07/30/24 07:08> Eyes: Eyes: Reports as per HPI and Reports no additional eye complaints <Keven Galvin MD - Last Filed: 07/30/24 07:08> ENT: Reports system reviewed and no additional complaints, except as documented and Reports as per HPI <Keven Galvin MD - Last Filed: 07/30/24 07:08> Cardiovascular: Cardiovascular: Reports as per HPI and Reports no additional cardiovascular complaints <Keven Galvin MD - Last Filed: 07/30/24 07:08> Respiratory: Respiratory: Reports as per HPI and Reports no additional respiratory complaints <Keven Galvin MD - Last Filed: 07/30/24 07:08> Gastrointestinal: Gastrointestinal: Reports as per HPI and Reports no
[2024-07-29 06:32] LABS: Add Urine Microscopic? YES; Appearance Urine Sl Cloudy (Clear); Bilirubin Urine Negative (Negative); Blood Urine Negative (Negative); Color Urine Light Yellow (Yellow); Glucose Urine UA Negative (Negative); Ketones Urine Negative (Negative); Leukocyte Esterase Ur 2+ LEU/UL (Negative); Nitrate Urine Negative (Negative); Protein Urine Negative (Negative); Specific Grav Ur >= 1.030 (1.010-1.020); Urobilinogen Urine 0.2 mg/dL (0.2-1.0)
[2024-07-29 06:33] LABS: Pregnancy On Board Control Positive; Urine Pregnancy Test Negative
[2024-07-29] MEDS: ONDANSETRON HCL ODT 4 MG TABLET PO (06:34)
[2024-07-29] MEDS: HYDROmorphone HCL INJ (*CRX) 2 MG/ML VIAL 0.5 MG IM (06:36)
--- NOTE | 2024-07-29 06:37 | PC.NURSE ---
Patient medicated per order, see MAR. phlebotomy at bedside for blood draw and urine sent for analysis. patient tearful rocking back and forth sitting on stretcher. given warm blanket to cover up with as well as a warm blanket to place on her abdomen to assist with discomfort. call light within reach. RN monitoring.
[2024-07-29 06:44] LABS: Basophils Absolute Auto 0.03 K/mm3 (0.00-0.10); Basophils Percent Auto 0.3 % (0.0-1.0); Eosinophils Absolute Auto 0.11 K/mm3 (0.02-0.50); Eosinophils Percent Auto 0.9 % (1.0-6.0); Hematocrit 36.3 % (35.0-49.0); Hemoglobin 12.4 g/dL (12.0-15.0); Immature Granulocyte Absolute 0.06 K/mm3 (0.00-0.00); Immature Granulocyte Percent A 0.5 % (0.0-0.0); Lymphocytes Absolute Auto 2.89 K/mm3 (1.10-4.50); Lymphocytes Percent Auto 24.1 % (18.0-42.0); Mean Corpuscular HGB Conc 34.2 g/dL (32-36); Mean Corpuscular Hemoglobin 28.8 pg (27.0-31.0); Mean Corpuscular Volume 84.2 fL (78.0-102.0); Monocytes Absolute Auto 0.66 K/mm3 (0.10-0.90); Monocytes Percent Auto 5.5 % (2.0-11.0); Neutrophils Absolute Auto 8.22 K/mm3 (1.70-7.20); Neutrophils Percent Auto 68.7 % (50.0-70.0); Platelet Count Result 209 K/mm3 (150-420); Red Blood Count 4.31 M/mm3 (4.20-5.40); Red Cell Distribution Width 12.4 % (11.6-14.4)
[2024-07-29 06:45] LABS: Bacteria Urine 3+ /hpf; RBC Urine None seen /hpf (0-2); Squamous Epithelial Cell Urine Many /hpf (Few); WBC Urine 31-50 /hpf (0-3)
--- NOTE | 2024-07-29 06:55 | PC.NURSE ---
patient sitting on floor in ED 1, RN offered to assist patient up to stretcher however patient refused. ERP at bedside at this time, speaking with patient regarding results and plan of care. patient reports nausea improved. states pain remains.
[2024-07-29 06:58] LABS: Alanine Aminotransferase 17 U/L (14-59); Albumin Level 3.9 g/dL (3.4-5.0); Alkaline Phosphatase 68 U/L (46-116); Anion Gap 12 mmol/L (4-12); Aspartate Amino Transferase 15 U/L (15-37); Bilirubin,Total 0.3 mg/dL (0.00-1.00); Blood Urea Nitrogen 18 mg/dL (7-18); Calcium 8.8 mg/dL (8.5-10.1); Carbon Dioxide 23 mmol/L (21-32); Chloride 102 mmol/L (98-108); Estimated CRCL calculation 93 ml/min; Estimated Glomerular Filt Rate > 60; Glucose 99 mg/dL (70-99); Lipase 25 U/L (16-77); Osmolality Calculated 285 mOsm/kg (285-295); Potassium 4.1 mmol/L (3.5-5.1); Sodium 137 mmol/L (136-145); Total Protein 7.4 g/dL (6.4-8.2)
--- NOTE | 2024-07-29 07:05 | PC.NURSE ---
BSSR given to LINDSAY Pryor. patient awake and alert.
[2024-07-29 07:15] LABS: Lactic Acid Reflex < 0.3 mmol/L (0.4-2.0)
[2024-07-29] MEDS: HYDROmorphone HCL INJ (*CRX) 2 MG/ML VIAL 0.5 MG IV PUSH (07:16)
[2024-07-29] MEDS: LACTATED RINGERS 1,000 ML 999 ML IV CONT (07:16)
--- NOTE | 2024-07-29 07:35 | PC.NURSE ---
REPORT FROM LINDSAY BRADLEY. PT WAS LYING ON THE FLOOR WHEN I RECEIVED REPORT. PT REPORTS SHE DOESN'T WANT TO FALL OFF THE STRETCHER. PT ADVISED IV SITE NEEDED TO BE ESTABLISHED AND SHE WOULD NEED TO BE ON THE STRETCHER. PT MOVES TO STRETCHER ON HER OWN, IV SITE IS ESTABLISHED. PT TOLERATED WELL. MEDICATION AND IVF ADMINISTERED WITHOUT DIFFICULTY. PT HAS BEEN TO CT AND RETURNED. PT IS NOW SITTING UP ON STRETCHER WITHOUT DIFFICULTY TEXTING ON CELL PHONE. PT REPORTS PAIN HAS IMPROVED AT THIS TIME. PT IS AWAITING RESULTS. MOUTH SWAB PROVIDED REQUESTED. VSS PER MONITOR. PT DENIES ANY OTHER NEEDS OR COMPLAINTS, PT HAS BLANKETS AND REPORTS SHE IS IN A POSITION OF COMFORT AT THIS TIME. PT DENIES ANY NAUSEA. WILL CONTINUE TO MONITOR.
--- NOTE | 2024-07-29 08:09 | PC.NURSE ---
PT IS REPORTING NAUSEA AND DIZZINESS. HYPOTENSION IS NOTED. PT HAS AT BEDSIDE. ERP IS NOTIFIED, AWAITING ORDERS. WILL CONTINUE TO MONITOR.
--- NOTE | 2024-07-29 08:17 | ED.ABDPAIN ---
HPI - Abdominal Pain General Chief Complaint: Abdominal Pain Stated Complaint: abdominal pain Time Seen by Provider: 07/29/24 08:24 Source: patient Mode of arrival: ambulatory Limitations: no limitations History of Present Illness MD elicited complaint: abdominal pain Onset (ago): hour(s) ( 2 hours) Pain Consistency: intermittent Location: diffuse Severity: severe Quality: aching Radiation: none Migration to: no migration Exacerbating factors: nothing Relieving factors: nothing Associated symptoms: nausea Related Data Home Medications Medication Instructions Recorded Confirmed sertraline 50 mg tablet (Zoloft) 50 mg PO DAILY 04/12/23 07/29/24 Allergies Allergy/AdvReac Type Severity Reaction Status Date / Time morphine AdvReac Nausea Verified 07/29/24 06:15 [facility] Past Medical History Medical History 27 weeks gestation of Edema Pre-eclampsia Social History Social History Smoking status: Never smoker Lack of Transportation: No Lack of Food: Never True Current Housing: I Have Housing Concerned About Future Housing: YES Difficulty Paying Gas/Electric Bills: No Difficulty Paying for Meds: No Currently Unemployed: No Education: High School Diploma/GED Difficulty w/ Childcare or Family Care: No Course Vital Signs Vital signs: Vital Signs Temperature 36.6 C 07/29/24 06:08 Pulse Rate 80 07/29/24 06:08 Respiratory Rate 18 07/29/24 06:08 Blood Pressure 123/83 07/29/24 06:08 Pulse Oximetry 98 07/29/24 06:08 Oxygen Delivery Room Air 07/29/24 06:08 Temperature 36.6 C 07/29/24 06:08 Pulse Rate 85 07/29/24 07:39 Respiratory Rate 16 07/29/24 07:39 Blood Pressure 88/45 L 07/29/24 08:01 Pulse Oximetry 97 07/29/24 08:01 Oxygen Delivery Room Air 07/29/24 06:50 MDM - Abdominal Pain Lab Data 07/29/24 06:38 07/29/24 06:38 Labs: Lab Results 07/29/24 07/29/24 07/29/24 Range/Units 06:25 06:38 06:40 WBC 12.0 H (4.8-10.8) K/mm3 RBC 4.31 (4.20-5.40) M/mm3 Hgb 12.4 (12.0-15.0) g/dL Hct 36.3 (35.0-49.0) % MCV 84.2 (78.0-102.0) fL MCH 28.8 (27.0-31.0) pg MCHC 34.2 (32-36) g/dL RDW 12.4 (11.6-14.4) % Plt Count 209 (150-420) K/mm3 MPV 10.0 (9.2-11.8) fl Immature Gran % (Auto) 0.5 H (0.0-0.0) % Neut % (Auto) 68.7 (50.0-70.0) % Lymph % (Auto) 24.1 (18.0-42.0) % [place] % (Auto) 5.5 (2.0-11.0) % Eos % (Auto) 0.9 L (1.0-6.0) % Baso % (Auto) 0.3 (0.0-1.0) % Lymph # (Auto) 2.89 (1.10-4.50) K/mm3 [place] # (Auto) 0.66 (0.10-0.90) K/mm3 Eos # (Auto) 0.11 (0.02-0.50) K/mm3 Baso # (Auto) 0.03 (0.00-0.10) K/mm3 Abs Immat Gran (auto) 0.06 H (0.00-0.00) K/mm3 Absolute Neuts (auto) 8.22 H (1.70-7.20) K/mm3 Absolute Nucleated RBC 0.00 (0.00-0.00) K/mm3 Nucleated RBC % 0.0 (0-0.0) % Sodium 137 (136-145) mmol/L Potassium 4.1 (3.5-5.1) mmol/L Chloride 102 (98-108) mmol/L Carbon Dioxide 23 (21-32) mmol/L Anion Gap 12 (4-12) mmol/L BUN 18 (7-18) mg/dL Creatinine 0.71 (0.55-1.02) mg/dL Estim Creat Clear Calc 93 ml/min Estimated GFR > 60 (59 - ) Glucose 99 (70-99) mg/dL Calculated Osmolality 285 (285-295) mOsm/kg Lactic Acid < 0.3 L (0.4-2.0) mmol/L Calcium 8.8 (8.5-10.1) mg/dL Total Bilirubin 0.3 (0.00-1.00) mg/dL AST 15 (15-37) U/L ALT 17 (14-59) U/L Alkaline Phosphatase 68 (46-116) U/L Total Protein 7.4 (6.4-8.2) g/dL Albumin 3.9 (3.4-5.0) g/dL Lipase 25 (16-77) U/L Urine Color Light yellow (Yellow) Urine Appearance Sl cloudy A (Clear) Urine pH 6.0 (5.0-8.0) Ur Specific [place] >= 1.030 H (1.010-1.020) Urine Protein Negative (Negative) Urine Glucose (UA) Negative (Negativ
[2024-07-29] MEDS: SODIUM CHLORIDE 0.9% IV 1,000 ML 999 ML IV CONT (08:27)
[2024-07-29] MEDS: PIPERACILLN/TAZ 3.375GM/NS50ML 3.375 GM/50 ML BAG IVPB (08:46)
--- NOTE | 2024-07-29 09:06 | PC.NURSE ---
PT AND SIG OTHER ARE AWARE OF PLAN OF CARE, PT LAST DRANK WATER AT 0100 AND LAST ATE FOOD AT 2000 LAST PM. PT IS AWAITING TRANSFER TO [facility] AT THIS TIME.
--- NOTE | 2024-07-31 14:51 | PC.NURSE ---
URINE CULTURE NO GROWTH
--- NOTE | 2024-07-31 14:52 | PC.NURSE ---
FINAL URINE CULTURE NO GROWTH
== END 2024-07-29 09:31 | disposition short-term general hospital (02) ==
PROVIDERS: Internal Medicine Critical Care Medicine; Emergency Provider Emergency Medicine
DX: K35.80 Unspecified acute appendicitis (principal); N39.0 Urinary tract infection, site not specified; K59.00 Constipation, unspecified; F17.290 Nicotine dependence, other tobacco product, uncomplicated; Z79.899 Other long term (current) drug therapy
CPT/HCPCS: 36415; 74177; 80053; 81001; 81025; 83605; 83690; 85025; 87086; 96361; 96365; 96372; 96375; 99285; A9270; J1171; J2543; J7030; J7120; Q9967

== ENCOUNTER 2024-07-29 11:39 | Observation (INO) | payer SELFPAY ==
[2024-07-29] VITALS (10 sets, daily range): BP systolic 90–112; BP diastolic 49–68; PULSE 58–139; RESP 12–20; TEMP 35.9–36.4; O2SAT 96–100; BMI 26.6
--- NOTE | 2024-07-29 10:47 | ADMGEN ---
This patient, Marianne Fox, was admitted to Medical Room 251-01. Patient/family oriented to hospital policies and general routines including ID bracelet, bed and alarms, visiting hours, pain management, procedures, bathroom and other care routines, personal items, smoking policy, room service/diet, and visiting hours. Information on how to activate the Rapid Response Team has been discussed. Patient/Family are encouraged to report perceived risks to care and to ask questions if they do not understand what they are told or what they should do.
--- NOTE | 2024-07-29 11:51 | PM.IMHP ---
H&P: HPI History of Present Illness Date/Time: 07/29/24 11:51 Chief Complaint: Abdominal pain Narrative: This is a 24-year-old woman who presented to [place] ED today with complaints of abdominal pain. She reports pain woke her up from sleep around 3:00 a.m. this morning. Initially, her abdominal pain was diffuse and cramping. She reports associated mild nausea, but no vomiting or other symptoms. She does have a history of a ruptured ovarian cyst about 4 years ago and underwent diagnostic laparoscopy. It sounds like she had an ovarian cystectomy, but no issues since. She reports her symptoms that started this morning were similar to her episode 4 years ago. She came into the ED for evaluation. Over the past few hours, her abdominal pain has localized to the right lower quadrant. [place] [id number] [place] scan showed evidence of acute appendicitis, constipation, as well as a ruptured right ovarian cyst. She was then transferred to [facility] for surgical evaluation and treatment. She is now seen on the medical floor with her mother at the bedside. In addition, she had a about a year ago with twins. Review of Systems Review of Systems: All systems reviewed & are unremarkable except as noted in HPI and below PMFSH Past Medical History Medical History 27 weeks gestation of Edema Pre-eclampsia Surgical History Surgical History History of History of laparoscopy Family History Family History Father Heart disease Social History Social History Smoking status: Current every day smoker Tobacco type: e-cigarettes/vaping Alcohol intake: former Substance use: never Do You Feel Safe in your Home?: Yes Lack of Transportation: No Lack of Food: Never True Current Housing: I Have Housing Concerned About Future Housing: No Difficulty Paying Gas/Electric Bills: No Difficulty Paying for Meds: No Currently Unemployed: No Education: High School Diploma/GED Difficulty w/ Childcare or Family Care: No Spiritual care concerns: No Meds Home Medications and Allergies Home Medications Medication Instructions Recorded Confirmed Type sertraline 50 mg tablet (Zoloft) 50 mg PO DAILY 04/12/23 07/29/24 History cetirizine 10 mg tablet (Zyrtec) 10 mg PO DAILY PRN Sinus Symptoms 07/29/24 07/29/24 History famotidine 20 mg tablet 20 mg PO DAILY 07/29/24 07/29/24 History Allergies Allergy/AdvReac Type Severity Reaction Status Date / Time morphine AdvReac Nausea Verified 07/29/24 06:15 Exam Const: General: comfortable and no acute distress Nutritional Appearance: average body habitus Orientation/consciousness: patient oriented x3 HENMT: Head: normocephalic and atraumatic Ears: hearing grossly normal bilaterally Mouth: Yes moist mucous membranes Eyes: General: appearance normal, both eyes and all related structures Pupils: Equal, round and reactive pupils present Neck: Neck: normal visual inspection and full ROM Resp: Effort & Inspection: no respiratory distress Auscultation: clear to auscultation bilaterally Cardio: Rate: regular rate Rhythm: regular rhythm Heart sounds: S1 normal heart sound present and S2 normal heart sound present Peripheral pulses: Peripheral pulses 2+ throughout GI: Inspection: non-distended and no visible herniation GI Palp: Yes Soft to palpation, Yes Tenderness to palpation present (GI) (Focal tenderness in RLQ), No Guarding due to palpation present (GI), Yes No hepatosplenomegaly present and No Rebound tenderness present Auscultation: normal bowel sounds Skin: General skin exam: normal color Neuro: General: moves all extremities and no focal motor deficits Speech: normal speech Motor exam (neuro): 5/5 motor strength present throughout Extrem: General: normal to inspection and no edema Psych: Mental Status: mental status grossly normal Attitude: cooperative Insight: Good insight present (Psych) Judgement: Good judgement present (Psych) H&P: Results Imaging CT scan - abdomen: Radiologist's impression: CT abdomen pelvis w con Ordering provider: Keven Galvin MD History: 24 years Female with . MID TO UPPER abdominal pain/HX OF OVARIAN CYSTS . Comparison: None. Technique: CT abdomen and pelvis with IV and without oral contrast. Automated exposure control and iterative reconstruction technique were employed. The dose-length product was 275.28 mGy-cm. 100 mL Omnipaque 350 was given IV. Findings: VISUALIZED LOWER CHEST: Normal. UPPER ABDOMINAL ORGANS: Liver: Normal. Gallbladder: Normal. Spleen: Normal. Splenules are seen adjacent to the spleen. Stomach/duodenum: Normal. Pancreas: Normal. Adrenals: Normal. Kidneys: Normal. PELVIC ORGANS: The bladder is normal and is slightly underfilled. Uterus: Normal. Ruptured Right ovarian cyst is noted. BOWEL AND MESENTERY: Colon: No evidence of diverticulitis. Fecal material is seen in the rectosigmoid and right side of the colon. The appendix is slightly thickened and measures 1 cm.Minimal fat stranding seen in the right lower quadrant. Clinical correlation for acute appendicitis is advised. Small Bowel: Normal. No obstruction. Peritoneum/mesentery: No free air or free fluid. No mesenteric lymphadenopathy. RETROPERITONEUM: Normal aorta. No retroperitoneal lymphadenopathy. MUSCULOSKELETAL: Superficial soft tissues: The superficial soft tissues are normal. Bones: Normal appearances of the spine. Bilateral sacroiliacs. IMPRESSION: 1. Highly suggestive of acute appendicitis. Clinical correlation advised. 2. Possible constipation. Assessment and Plan Assessment and plan (1) Acute appendicitis: Code(s): K35.80 - Unspecified acute appendicitis Status: Acute Assessment and Plan: CT reviewed and showed evidence of acute appendicitis. No evidence of perforation or abscess. Clinical presentation and exam correlate with these findings. We discussed both nonoperative treatment with IV antibiotics/monitoring versus proceeding with surgery. We discussed the risks of recurrence or treatment failure with the option of antibiotic therapy. I also discussed the details of a laparoscopic appendectomy, possible open, under general anesthesia that would be done by Dr. Rodriguez. Description of the procedure, risks, benefits, alternatives, and expected recovery were discussed. She wishes to proceed with surgery. Will keep her NPO with IV fluids. She was given a dose of IV Zosyn at [place]. She has been added to the surgery schedule for today. (2) Constipation: Code(s): K59.00 - Constipation, unspecified Status: Acute (3) Abnormal urinalysis: Code(s): R82.90 - Unspecified abnormal findings in urine Status: Acute Assessment and Plan: UA abnormal, possible contaminate. Urine cx pending. Received broad-spectrum IV antibiotics in the ED. (4) Rupture of cyst of right ovary: Code(s): N83.201 - Unspecified ovarian cyst, right side Status: Acute Assessment and Plan: Hx ruptured ovarian cyst [address] showed ruptured right ovarian cyst as well as acute appendicitis. This can be evaluated intraoperatively. Plan I have discussed the patient's case and plan of care with Dr. Rodriguez.
--- NOTE | 2024-07-29 12:09 | P.PNAN_ITS ---
Anes - Initial Pre Proc Eval Procedure: Operation Date: 07/29/24 15:00 Proposed Procedures p Laparoscopic Appendectomy - Altaf Rodriguez DO Date/Time: 07/29/24 12:09 Surgeon: Altaf Rodriguez DO Pre Op Diagnosis: Acute Appendicitis Patient Data Age: 24 Gender: F Height: 1.6 m Weight: 68.18 kg Allergies Allergy/AdvReac Type Severity Reaction Status Date / Time morphine AdvReac Nausea Verified 07/29/24 06:15 Home Medications Medication Instructions Recorded Confirmed Type sertraline 50 mg tablet (Zoloft) 50 mg PO DAILY 04/12/23 07/29/24 History cetirizine 10 mg tablet (Zyrtec) 10 mg PO DAILY PRN Sinus Symptoms 07/29/24 07/29/24 History famotidine 20 mg tablet 20 mg PO DAILY 07/29/24 07/29/24 History Patient hx anesthesia problems: none Family hx anesthesia problems: none Results Review: All pre-operative results and documents have been reviewed as part of the pre- operative evaluation. [facility] Past Medical History Medical History (Updated 07/29/24 @ 12:14 by Aakash Paredes MD) Appendicitis Surgical History Surgical History (Updated 07/29/24 @ 12:14 by Aakash Paredes MD) History of History of laparoscopy Family History Family History Father Heart disease Social History Social History Smoking status: Current every day smoker Tobacco type: e-cigarettes/vaping Alcohol intake: former Substance use: never Do You Feel Safe in your Home?: Yes Lack of Transportation: No Lack of Food: Never True Current Housing: I Have Housing Concerned About Future Housing: No Difficulty Paying Gas/Electric Bills: No Difficulty Paying for Meds: No Currently Unemployed: No Education: High School Diploma/GED Difficulty w/ Childcare or Family Care: No Spiritual care concerns: No Anes - Eval Final PreProcedure Day of Procedure 07/29/24 12:09 Patient weight: overweight Heart: regular rate and rhythm Lungs: clear to auscultation Airway: Mallampati scale class II Neurological: alert and oriented Last oral intake: >/= 8 hours ASA classification: II Emergent: no Anesthetic plan: proceed Anesthesia type and monitoring: general ETT and standard monitoring Results Review: All pre-operative results and documents have been reviewed as part of the pre- operative evaluation. Informed Consent: The patient's anesthetic plan and its attendant risks and benefits were discussed with the patient/family/POA. Questions were solicited and answers provided to the satisfaction of the patient/family/POA.
--- NOTE | 2024-07-29 12:15 | WPDHPUPDATE1 ---
History and Physical Update Update Date/Time: 07/29/24 12:15 History and Physical has been reviewed, including an updated exam of the patient. There are NO changes in the patient's condition. Risks, benefits, and alternatives have been discussed and questions answered. Patient agrees to proceed with procedure.
[2024-07-29] MEDS: KETOROLAC 15 MG/ML VIAL (*BKC) IV PUSH (12:18)
[2024-07-29] MEDS: LACTATED RINGERS 1,000 ML 30 ML IV CONT ×2 (12:18→13:21)
[2024-07-29] MEDS: BUPIVACAINE/EPINEPHRINE 0.5% 50 ML VIAL 30 ML INFILTRATE (12:43)
--- NOTE | 2024-07-29 13:12 | W.PM.PROC2 ---
Procedure Note - Detailed Date of Procedure 07/29/24 Pre-op Diagnosis Acute Appendicitis Post-op Diagnosis Same Procedure Performed Laparoscopic appendectomy Surgeon Altaf Rodriguez, DO Anesthesia General and Local (0.5% bupivacaine with epinephrine) Indications This is a 24-year-old presented to the emergency department in [place] this morning with right lower quadrant pain that woke her from sleep. She had a slightly elevated white blood count and CT showed evidence of acute appendicitis. She was transferred to [facility] for further treatment. Discussions were made with the patient about treatment options and decision was made to proceed with laparoscopic appendectomy, possible open. Findings Laparoscopic appendectomy was performed. The patient's appendix appeared dilated and inflamed, but there was no evidence of perforation or abscess. No other intra-abdominal abnormalities were noted. The base of the appendix appeared healthy and viable. The appendix was removed and sent to lab for pathology. Description of Procedure Procedure as well as risks, benefits, and alternatives were explained to the patient. The patient agreed to proceed. Written consent was obtained and placed in chart prior to procedure. The patient was brought back to surgical suite. She was placed supine on operating table. Time-out was done to confirm the patient and procedure. The patient was then intubated by the Anesthesia Department. Her abdomen was prepped and draped in sterile fashion using chlorhexidine prep. A 12 mm incision was made at the inferior portion of the umbilicus. Blunt dissection was carried out down to the linea alba. The linea alba was then incised using a 15 blade scalpel. Then bluntly entered into the peritoneal cavity. A 12 mm trocar was then inserted, and carbon dioxide insufflation was used to create a pneumoperitoneum. The camera was inserted and the abdomen was inspected. No immediate abnormalities were identified. The patient was then placed in slight Trendelenburg position and rotated to the left. A 5 mm incision was made in the suprapubic region in midline and a 5 mm trocar was inserted under direct visualization. A 5 mm incision was made in the left lower quadrant and a 5 mm trocar was inserted under direct visualization. The right lower quadrant was carefully inspected. The cecum was identified and then this was traced back to the appendix. The appendix was identified and grasped at the mesoappendix and lifted anteriorly. Careful blunt dissection was carried out at the base of the appendix through the mesoappendix using a [place] grasper. An Endo-TANYA 45 mm blue load stapler was then advanced across the base of the appendix and clamped and fired. A white reload was then clamped across the mesoappendix and fired. This freed up our appendix completely. It was then placed in an EndoCatch bag and removed through the umbilical port. The staple lines were then inspected. Hemostasis appeared adequate and the staple lines appeared secure. The area was then irrigated with sterile saline. The pelvis was then carefully inspected and irrigated with sterile saline as well and the remainder of the abdomen was carefully inspected. The patient was then flattened out in bed. One final inspection was made around the abdominal cavity and no other abnormalities were seen. The ports were then removed under direct visualization. The camera was removed and the pneumoperitoneum was released. The fascia of the umbilical incision was reapproximated using an 0 Vicryl [id number] suture. 0.5% bupivacaine with epinephrine was infiltrated locally around each of the incisions. The skin of the incisions was then approximated using 4-0 Monocryl subcuticular suture and Exofin glue was applied on top. The patient was then awakened from anesthesia, extubated, and transferred to Recovery. Estimated Blood Loss 5 Pathology Yes (Appendix) Complications No immediate complications Condition Stable Disposition Observation [facility] Billing Surgery - Charge Forward: Surgery Billing
--- NOTE | 2024-07-29 13:42 | SUR.PHASEI ---
1338: Simple mask removed.
--- NOTE | 2024-07-29 14:44 | PC.NURSE ---
Returned from OR at 1440. Report received from
[2024-07-29] MEDS: HYDROcodone/acetaminophen (*CRX) 5-325 MG TABLET 1 TAB PO (16:18)
--- NOTE | 2024-07-29 18:00 | P.DS_ITS ---
DS: Admitting Diagnosis Discharge Date 07/29/24 Admitting Diagnosis Acute appendicitis DS: Discharge Diagnosis Discharge Diagnosis (1) Acute appendicitis: Code(s): K35.80 - Unspecified acute appendicitis Status: Acute DS: Summary Hospital Course Reason for hospitalization: Acute appendicitis Hospital Course: This is a 24-year-old woman who presented to the emergency department on 07/29/2024 with complaints of right lower quadrant pain. She was noted to have an elevated white blood count and CT showed evidence of acute appendicitis. She was then placed in observation for further treatment. She underwent laparoscopic appendectomy on 07/29/2024. Surgery was uncomplicated and then she was returned to the surgical floor postoperatively. Her diet and activity were advanced as tolerated. She was tolerating a regular diet, remaining hemodynamically stable, ambulating in the halls, and pain was controlled. She was discharged in the evening on 07/29/2024. Time spent discussing smoking cessation with patient: 3 to 10 minutes Status at Discharge Functional status at discharge: independent ambulation Overall status at discharge: patient is progressing back to baseline Time Spent with Patient Time attestation: Total time spent providing and/or coordinating discharge services: Time spent: Less than 30 minutes Exam Resp: Effort & Inspection: normal respiratory effort Auscultation: clear to auscultation bilaterally Cardio: Rate: regular rate Rhythm: regular rhythm Heart sounds: S1 normal heart sound present and S2 normal heart sound present GI: Inspection: incision (Intact with glue) GI Palp: Yes Soft to palpation and Yes Tenderness to palpation present (GI) (Incisional) DS: Data Data Completed and Pending Completed studies during hospitalization: Pending at discharge 07/29/24 12:50 Surgical [PTH] Routine Discharge Plan Discharge Attending physician on discharge: Altaf Ott Consulting providers: Veronica Woods; Aakash Paredes Discharging Clinician: Altaf Ott Anticipated Discharge Date/Time: 07/29/24 16:00 Patient Disposition: Home, Self-Care Activity: other - see discharge instructions Diet: regular Wound Care Instructions: other - see discharge instructions Discharge Instructions: DISCHARGE INSTRUCTION SHEET FOR HERNIA, GALLBLADDER AND APPENDIX SURGERIES DR. OTT PATIENT TO TAKE HOME 1. May shower in 24 hours, no soaking in bath x 2weeks. 2. Call office for: * Wound increasingly painful or bleeding * Vomiting * Fever of greater than 101 degrees 3. If no bowel movement for three days, take 1 oz. (30 ml) Milk of Magnesia or MiraLax 17g 1 to 2 times daily. 4. No heavy lifting > 10-15 pounds x weeks for hernia repairs and 2 weeks for laparoscopic cholecystectomy or appendectomy. 5. No driving for 3 days or while taking narcotic pain medications. 6. Ice to surgical site for 48 hours (30 min on, then 30 min off). 7. Up walking 10-30 minutes three times per day. 8. Resume previous home medications. 9. Follow-up 10-14 days in office for wound check or as previously scheduled. ([phone]) 10. Oral pain medications prescription to be sent to pharmacy. Take Tylenol 500mg every 6 hours and Ibuprofen 600mg every 6 hours for the first 2 days, then as needed. 11. NUTRITION: Start out by drinking fluids and increase your diet as tolerated. If you experience nausea, try dry toast, crackers, and 7-UP. If nausea or vomiting persists, contact your surgeon?s office. 12. Gallbladders-Low Fat Diet for 2 weeks (send care note of low fat diet) 13. Inguinal Hernias-wear scrotal support for 48 hours 14. Abdominal Hernias-if sent home with abdominal binder, wear for the first 2 weeks (may remove to shower or at night to sleep). Revised February 2019 Patient Instructions: Antibiotic Form Stand Alone Forms: General Discharge Information Follow-up/Referrals: Altaf Ott DO [Physician] - 2 Weeks Discharge Medications: New hydrocodone-acetaminophen 5-325 mg tablet 1 tablet PO Q4H PRN (Reason: pain) Qty: 10 0RF Continued sertraline [Zoloft] 50 mg Tablet 50 mg PO DAILY cetirizine [Zyrtec] 10 mg Tablet 10 mg PO DAILY PRN (Reason: Sinus Symptoms) famotidine 20 mg tablet 20 mg PO DAILY Date of admission: 07/29/24 11:39 Primary Care Provider: UNKNOWN,DOCTOR Admitting Provider: Altaf Ott Attending physician on admission: Altaf Ott Condition: Improved
== END 2024-07-29 18:20 | disposition home or self-care (01) ==
PROVIDERS: Admitting Provider Surgery; Visit Provider Surgery
PROC: 0DTJ4ZZ Resection of Appendix, Percutaneous Endoscopic Approach (ICD-10-PCS; CPT 44970; principal; 2024-07-29 15:00)
DX: K35.80 Unspecified acute appendicitis (principal); N83.201 Unspecified ovarian cyst, right side; K59.00 Constipation, unspecified; R82.90 Unspecified abnormal findings in urine; F17.290 Nicotine dependence, other tobacco product, uncomplicated
CPT/HCPCS: 44970; 88304; A9270; G0378; J1885; J2003; J2250; J2371; J2405; J2704; J7120

== ENCOUNTER 2025-02-14 12:32 | Emergency (ER) | payer OTHER, SELFPAY ==
--- NOTE | ~2025-02-14 | XR_ITS ---
XR chest 1V portable Ordering provider: Alessandra Lindsay PA-C History: 24 years Female with . CP, SOB . Comparison: June 14, 2023 FINDINGS: MEDIASTINUM: The cardiac silhouette is not enlarged. LUNGS: No infiltrates, effusions or pneumothorax. OTHER: No free air under the diaphragm. IMPRESSION: No acute cardiopulmonary pathology. Reviewed, dictated and finalized at location A.
--- OUTSIDE RECORDS SUMMARY | 2025-02-14 12:34 | XMS_ITS | Clinical Summary ---
Author Organization [facility] Address [address] [place] [address] Care Team Providers Care Public Health Inspector Name Role Phone Unavailable Primary Care Provider Unavailabl e Source Comments [facility],non-owned Affiliates and Associated Physician Practices is amultiple site organization consisting of ambulatory clinics and hospital sitesin [place], [place], [place] and [place]. This disclosure is being madepursuant to the Care Everywhere program and may not contain all information available regarding this patient. Last updated 18.[facility] Allergies Active Allergy Reactions Criticality Noted Date Comments Morphine Urticaria,Nausea and /or Vomiting High 11/22/2018 Pt has to have small amounts at a time Medications * Be aware that medications may not be up to date on this document. Alwaysverify current medications with the patient. cetirizine-pseud oephedrine 12hr (ZYRTEC-D ALLERGY & CONGESTION) 5-120 MG tabletIndication s:Viral pharyngitis Take 1 Tab by mouth 2 times daily. 20 Tab 0 5 Active diphenhydrAMINE (BENADRYL) 25 MG capsule Take 1 (one) capsule by mouth every 4 hours as needed for Itching Active sertraline (ZOLOFT) 50 MG tablet Take 0.5 (one-half) tablet by mouth once daily 1 Active albuterol HFA (PROVENTIL;YVETTE RADHA;PROAIR) 108 (90 Base) MCG/ACT inhaler Inhale 2 (two) puffs by mouth as needed 0 Active pyridoxine (Vitamin B-6) 25 MG tablet Take 2 (two) tablets by mouth once daily Active Vit-Fe Fumarate-FA ( vitamin) 28-0.8 MG tabletIndication s: Take 1 (one) tablet by mouth once daily Reasons: Active valACYclovir (Valtrex) 500 MG tabletIndication s: labor in second trimester with delivery in second trimester, fetus 2 of multiple gestation (HCC) Take 1 (one) tablet by mouth 2 times daily 30 tablet 3 Active ursodiol (Actigall) 300 MG capsule Take 1 (one) capsule by mouth 2 times daily with morning and evening meal 30 capsule 3 3 Active famotidine (Pepcid) 8 mg/ml suspension Take 2.5 mL by mouth once daily 50 mL 3 Active acetaminophen-ca ffeine 500-65 MG tablet Take 2 (two) tablets by mouth every 6 hours as needed for Headache 30 tablet 3 Active ondansetron, disintegrating, (Zofran ODT) 4 MG tablet Take 1 (one) tablet by mouth every 6 hours as needed for Nausea/Vomitin g Allow tablet to dissolve on the tongue 30 tablet 3 Active Active Problems Problem Noted Date Diagnosed Date Elevated blood pressure read ing without diagnosis of hypertension 06/10/2023 Abdominal pain, generalized 06/08/2023 Pain of round ligament affecting , ante 06/08/2023 related pelvic francis n in third trimester, antepartum 06/08/2023 labor in second trim argenis with delivery in second trimester, fetus 2 of multiple gestation 05/22/2023 Gastritis 01/26/2021 Anxiety 01/26/2021 Asthma 01/26/2021 ADD (attention deficit disorder) 08/24/2015 Immunizations Immunization Administration Dates Next Due DTaP VACCINE IM (6wk-6yrs) 02/04/2003,,03/03/1999, 9,1998 HEP A PEDS 2 DOSE 05/23/2010,10/06/2009 HEP B VACCINE, PED/ADOL 03/03/1999,1998, HIB-PRP-T 4 DOSE 10/13/1999, 9,1998, 9 HPV VACCINE 05/13/2020 INFLUENZA VACCINE 08/24/2015 Influenza Nasal 08/24/2015 MENINGOCOCAL MENINGITIS 10/06/2009 MENINGOCOCCAL ACWY (MCV4P) VAC IM 08/24/2015 MMR 02/04/2003,10/13/1999 POLIO IPV 02/04/2003, 0,1998, 9 TDAP (7yrs+) 05/13/2020,10/06/2009 VARICELLA 10/06/2009,10/13/1999 Family History Medical History Relation Name Comments Blood Clots Father CAD (Coronary Artery Disease) Father Diabetes - Type 2 Father Hypertension Father CVA Maternal Grandmother Migraine Sister 2 Relation Name Status Comments Father (Age 46) chf Maternal Grandfather Maternal Grandmother Mother Alive Paternal Grandfather Paternal Grandmother Sister 1 Alive Sister 2 Social History Tobacco Use Types Packs/Day Years Used Date Smoking Tobacco: Former Cigarettes 2 - 2019 Smokeless Tobacco: Never Tobacco Cessation:Counseling Given: Yes Alcohol Use Standard Drinks/Week Comments No 0 (1 standard drink = 0.6 oz pur e alcohol) Overall Financial Resource Strain (CARDIA) Answe r Date Recorded How hard is it for you to pa y for the very basics like food, housing, medical care, and heating? Not hard at all 06/10/2023 PHQ-2 Answer Date Recorded PHQ2 TOTAL SCORE 1 10/09/2021 [facility] Occupat ional [facility] - Occupational Stress Questionnaire Answer Date Recorded Do you feel stress - tense, restless, nervous, or anxious, or unable to sleep at night because your mind is troubled all the time - these days? Only a little 06/10/2023 Hunger Vital Sign Answer Date Recorded Within the past 12 months, y ou worried that your food would run out before you got the money to buy more. Never true 06/10/20 23 Within the past 12 months, t he food you bought just didn't last and you didn't have money to get more. Never true 06/10/2023 PRAPARE - Transportation Answer Date Re corded In the past 12 months, has l ack of transportation kept you from medical appointments or from getting medications? No 12/2022 In the past 12 months, has l ack of transportation kept you from meetings, work, or from getting things needed for daily living? No 06/10/2023 Housing Stability Vital Sign Answer Bertram e Recorded In the last 12 months, was t here a time when you were not able to pay the mortgage or rent on time? No 06/10/2023 In the last 12 months, how many places have you lived? 2 06/10/2023 In the last 12 months, was t here a time when you did not have a steady place to sleep or slept in a prison (including now)? No 06/10/2023 Comments No Sex and Gender Information Value Date Recorded Sex Assigned at Not on file Legal Sex Female 8:56 AM CDT Gender Identity Not on file Sexual Orientation Not on file Occupation Industry Job Start Date Job End Date student Not on file Not on file Not on file Last Filed Vital Signs Vital Sign Reading Time Taken Comments Blood Pressure 141/82 06/10/2023 11:[address] garcia aware and plan to continue with discharge Pulse 74 06/08/2023 11:27 AM CDT Temperature 37.1 C (98.7 F) 06/10/2023 7:21 PM CDT Respiratory Rate 17 06/10/2023 11:2 1 PM CDT Oxygen Saturation 98% 06/10/2023 7:2 3 PM CDT Inhaled Oxygen Concentration - - Weight 88.5 kg (195 lb) 06/10/2023 7:21 PM CDT Height 160 cm (5' 3 ) 06/10/2023 7:21 PM CDT Body Mass Index 34.54 06/10/2023 7:21 PM CDT Plan of Treatment Health Maintenance Due Date Last Done Comments PNEUMOCOCCAL VACCINE (1 of 2 - PCV) 2017 PAP SMEAR 05/28/2023 05/28/2020 (Done Outside Per Patient) COVID-19 VACCINE (3 - season) 2024 06/12/2021, 05/22/2021 DEPRESSION SCREENING 10/08/2024 INFLUENZA VACCINE (Season Ended) 2025 08/24/2015, 08/24/2015 DTAP/TDAP/TD VACCINES (8 - Td or Tdap) 05/13/2030 05/13/2020, 10/06/2009, 02/04/2003, Additional history exists ZOSTER VACCINE (1 of 2) 2048 HEPATITIS B VACCINE Completed 03/03/1999, 1998, 1998 HIB VACCINE Completed 10/13/1999, 02/06, 1998, Additional history exists MENINGOCOCCAL GROUPS A/C/Y/W VACCINE Completed 08/24/2015, 10/06/2009 HPV VACCINE Discontinued 05/13/2020 HEPATITIS C SCREENING Completed 01/26/2021 HIV SCREENING Completed 04/17/2023, 12/07, 01/26/2021 MENINGOCOCCAL (Group B) VACCINE SHARED DECISION-MAKING Aged Out No longer eligible based on patient's age to complete this topic Procedures Procedure Name Priority Date/Time Associated Diagnosis Comments CULTURE STREP B STAT 05/22/2023 1:35 PM CDT HEPATITIS C ANTIBODY Routine 01/26/2021 11:13 AM CDT Encounter for hepatitis C screening test for low risk patient HIV-1 HIV-2 AG/AB RFLX DIFFERENTIATION Routine 01/26/2021 11:13 AM CDT Encounter for screening for HIV from Last 3 Months or Most Recently Relevant to Health Maintenance Results * CULTURE STREP B (05/22/2023 1:35 PM CDT) Culture Strep B Negative for beta-hemolytic Streptococcus Group B PARAG 05/25/2023 12:54 PM CDT [facility] MICROBIOLOGY Microbiology MISCELLANEOUS SAMPLES / Unknown Collection / Unknown 05/22/2023 1:35 PM CDT 05/22/2023 1:56 PM CDT us Abner Greenberg MD LAB - MICROBIOLOGY ORD ERABLES Final Result [facility] MICROBIOLOGY [address] [place], [place] [address], [facility] [phone] * HIV-1 HIV-2 AG/AB RFLX DIFFERENTIATION (01/26/2021 11:13 AM CDT) HIV-1 HIV-2 Antigen/Antib kev Negative Negative 01/28/2021 2:[address] [facility] ([facility]) Comment: The specimen was non-reactive for HIV-1 and HIV-2 antibodies, and p24 antigen. Based on this non-reactive screen result, further reflexive testing was not indicated and was, therefore, not performed INTERPRETIVE INFORMATION: HIV-1,2 Combo Ag/Ab EIA, w/Reflex This assay should not be used for blood donor screening, associated re-entry protocols, or for screening Human Cells, Tissues, and Cellular and Tissue-Based Products (HCT/P). Performed by [facility], [address] [place] [address] [email or web address], Brooke Holguin MD, Lab. Director Blood BLOOD SPECIMEN / Unknown Venipuncture / Unknown 01/26/2021 11:13 AM CDT 01/26/2021 11:14 AM CDT Elsie Mccoy SEWING ROOM SUPERVISOR-[employer]ADBAND TECHNICIAN LAB - CHEMISTRY ORDER JEANNETTE Final Result [facility] ([facility]) [address] * HEPATITIS C ANTIBODY (01/26/2021 11:13 AM CDT) Interpretation Hepatitis C Antibody LANDON Negative Negative 01/28/2021 5:23 PM CDT [facility] ([facility]) Comment: INTERPRETIVE INFORMATION: Hepatitis C Virus Antibody by LANDON Index: 0.79 IV or less .................. Negative 0.80 to 0.99 IV .................. Equivocal 1.00 to 10.99 IV ................. Low Positive 11.00 IV or greater .............. High Positive Index Value (IV) = Anti-HCV signal to cutoff (S/C)ratio This assay should not be used for blood donor screening, associated re-entry protocols, or for screening Human Cells, Tissues and Cellular and Tissue-Based Products (HCT/P). Interpretation Hepatitis C Antibody Index 0.03 IV 01/28/2021 5:23 PM CDT [facility] ([facility]) Comment: Performed by [facility], [address] [place] [address] [email or web address], Brooke Holguin MD, Lab. Director Blood BLOOD SPECIMEN / Unknown Venipuncture / Unknown 01/26/2021 11:13 AM CDT 01/26/2021 11:14 AM CDT Elsie Mccoy SEWING ROOM SUPERVISOR-BROADBAND TECHNICIAN LAB - CHEMISTRY ORDER JEANNETTE Final Result [facility] ([facility]) [address] [place] [address], [facility] from Last 3 Months or Most Recently Relevant to Health Maintenance Insurance [facility] Member Subscriber Plan / Payer (Ef fective for All Dates) Name:Marianne Fox Relation to Subscriber:Self Name:MARIANNE FOX Payer ID:Not on file Group ID:Not on file Type:Medicaid [place] Address: [address] [id number] MEDICAID - [facility] [place]ICAID - [place] [facility] SELF PAY NO INSURANCE Member Subscriber Plan / Payer (Ef fective for All Dates) Name:Marianne Fox Member ID:Not on file Relation to Subscriber:Not on file Name:MARIANNE FOX Subscriber ID:Not on file (Home) Address: [address] [place] [id number] Payer ID:Not on file Group ID:Not on file Type:Self Pay Address: [place], [place] [facility] Advance Directives * Full Code (Latest Code Status on File) Date Activated Date Inactivated Comments 05/25/2023 3:38 PM 05/27/2023 5:13 PM * Full Code Date Activated Date Inactivated Comments 05/22/2023 12:01 PM 05/23/2023 4:47 PM
--- OUTSIDE RECORDS SUMMARY | 2025-02-14 12:34 | XMS_ITS | Clinical Summary ---
Author Organization [facility] Address [address] [place] [address] Phone Care Team Providers Care Tumbler Operator Name Role Phone Oneyda Reed APRN, CNP Primary Care Provid er Allergies Active Allergy Reactions Criticality Noted Date Comments Morphine Nausea High 05/21/2019 Pt has to have small amounts at a time Bupropion Other (see Comments) 12/25/2024 Increased panic Medications albuterol 108 (90 Base) MCG/ACT Aerosol Solution take 2 Puffs by inhalation every 4 hours as needed for Wheezing or Cough. 1 Inhaler 0 Active Cetirizine HCl (ZYRTEC PO) Take by mouth. Act dean sertraline (ZOLOFT) 50 MG TabletIndicati ons:Anxiety Take 1 Tablet by mouth daily. 90 Tablet 1 4 Active GuanFACINE HCl 1 MG TABLET SR 24 HR Take 1 Tablet by mouth nightly. 90 Tablet 5 Active GuanFACINE HCl 1 MG TABLET SR 24 HR Take 1 Tablet by mouth nightly. 30 Tablet 1 5 01/28/20 25 Discontinu ed(Reorder ) Active Problems Problem Noted Date Diagnosed Date Anxiety during 01/21/2024 Anemia 03/20/2023 Overview (12/25/2024): Anemia panel pending. IV iron order faxed 03/21 Asthma, mild intermittent 02/20/2022 Anxiety 01/26/2021 Asthma 01/26/2021 Gastritis 01/26/2021 ADD (attention deficit disorder) 08/24/2015 Encounters Date Type Department Care Team Description 01/27/2025 [facility]ill [facility] [address] [place] [address] Oneyda Reed APRN, CNP Medication Refill 12/27/2024 Refill [facility] [address] [place] [address] Oneyda Reed APRN, CNP Medication Refill 12/25/2024 7:30 AM CDT Telemedicine [facility] [address] [place] [address] Oneyda Reed APRN, CNP Iron deficiency anemia, unspecified iron deficiency anemia type (Primary Dx); Vitamin D deficiency; Fatigue, unspecified type; Attention deficit disorder, unspecified type; Screening, lipid 12/24/2024 Travel 11/26/2024 Telephone [facility] [address] [place] [phone] Oneyda Reed APRN, CNP Anxiety; medication question 11/24/2024 2:30 PM INFECTION PREVENTION PRACTITIONER Office Visit [facility] [address] [place] [address] Oneyda Reed APRN, CNP Anxiety (Primary Dx); Sore throat Discharge Disposition: Discharged to home or Selfcare 11/24/2024 Travel from Last 3 Months Immunizations Immunization Administration Dates Next Due Covid-19, Mrna, Lnp-s, Pf, 3 0 Mcg/0.3 Ml Dose (RedBee) 05/22/2021 DTAP VACCINE 02/04/2003, 0,03/03/1999,12/16,1998 HIB Meningococcal Combined Vaccine IM ,03/03/1999,1998,11/18 Hep A-hep B, Pediatric/adole scent (non-US) 05/23/2010,10/06/2009 Hepatitis B Vaccine, Pediatric/adolescent 03/03/1999,1998,1998 Hpv, Unspecified Formulation 05/13/2020 Human Papillomavirus (HPV) 9 -valent Vaccine 11/28/2021 Human Papillomavirus Vaccine (HPV), quadrivalent 05/13/2020 Inactivated Polio Vaccine 02/04/2003,03/2000,1998,11/18 Influenza Vaccine 08/24/2015 Influenza Vaccine,unspecifie d Formulation 08/24/2015 MMR Vaccine 02/04/2003,10/13/1999 Meningococcal Vaccine 08/24/2015,10/06/2009 Pneumococcal conjugate PCV20 , polysaccharide [id number] conjugate, adjuvant, PF 08/24/2022 TDAP Vaccine 01/18/2024,,05/13/2020,10/06,02/04/2003,10/13/1999,03/03/1999 ,1998,1998 Varicella Vaccine Live 10/06/2009,10/13/1999 Family History Medical History Relation Name Comments Cardiomyopathy Father Bhupendra Fox Congestive Heart Failure Father Bhupendra Fox Heart Attack Father Bhupendra Fox 21- first Heart attack Hypertension Father Bhupendra Fox Stroke Maternal Grandmother [place] Skipper Asthma Paternal Grandmother Shadia Fox Chronic Obstructive Pulmonary Disease Paternal Grandmother Shadia Fox Relation Name Status Comments Father Bhupendra Fox Maternal Grandmother [place] Skipper Paternal Grandmother Shadia Fox Sister Alive Social History Tobacco Use Types Packs/Day Years Used Date Smoking Tobacco: Former Cigarettes 1 2 0 05/21/2016 - 05/21/2018 Smokeless Tobacco: Never Tobacco Cessation:Counseling Given: Not Answered Comments:patient uses only Jewel smokind device Alcohol Use Standard Drinks/Week Comments No 0 (1 standard drink = 0.6 oz pur e alcohol) 1-2 per month [facility] Utilities Answer Date Recorded In the past 12 months has [employer], gas, oil, or water [facility] threatened to shut off services in your home? No 12/24/2024 Social Connection and Isolation Panel [NHANES] A nswer Date Recorded In a typical week, how many times do you talk on the phone with family, friends, or neighbors? Twice a week 12/25/19 25 How often do you get togethe r with friends or relatives? Once a week 12/24/2024 How often do you attend chur ch or baptism services? 1 to 4 times per year 12/24/2024 Do you belong to any clubs o r organizations such as confucianist groups, unions, fraternal or athletic groups, or school groups? No 12/24/2024 How often do you attend meet ings of the clubs or organizations you belong to? Never 12/24/2024 Are you , , di vorced, , never , or living with a partner? Living with partner 12/24/2024 AUDIT-C Answer Date Recorded Q1: How often do you have a drink containing alc ohol? Monthly or less 12/24/2024 Q2: How many drinks containi ng alcohol do you have on a typical day when you are drinking? 1 or 2 12/24/2024 Q3: How often do you have si x or more drinks on one occasion? Never 12/24/2024 Overall Financial Resource Strain (CARDIA) Answe r Date Recorded How hard is it for you to pa y for the very basics like food, housing, medical care, and heating? Not very hard 12/24/2024 PHQ-2 Answer Date Recorded Total Score - Questions 1-9 0 11/08 [facility] [place] [facility] Occupat ional Health - Occupational Stress Questionnaire Answer Date Recorded Do you feel stress - tense, restless, nervous, or anxious, or unable to sleep at night because your mind is troubled all the time - these days? Rather much 12/24/2024 Exercise Vital Sign Answer Date Recorde d On average, how many days pe r week do you engage in moderate to strenuous exercise (like a brisk walk)? 4 days 12/24/2024 On average, how many minutes do you engage in exercise at this level? 100 min 12/24/2024 Hunger Vital Sign Answer Date Recorded Within the past 12 months, y ou worried that your food would run out before you got the money to buy more. Never true 12/25/19 25 Within the past 12 months, t he food you bought just didn't last and you didn't have money to get more. Never true 12/24/2024 PRAPARE - Transportation Answer Date Re corded In the past 12 months, has l ack of transportation kept you from medical appointments or from getting medications? No 12/06 In the past 12 months, has l ack of transportation kept you from meetings, work, or from getting things needed for daily living? No 12/24/2024 Housing Stability Vital Sign Answer Bertram e Recorded In the last 12 months, was t here a time when you were not able to pay the mortgage or rent on time? Patient declined 01/21/20 24 Number of Places Lived in the Last Year Not on f ile 01/21/2024 In the last 12 months, was t here a time when you did not have a steady place to sleep or slept in a longterm (including now)? Patient declined 01/21/2024 Housing Stability Vital Sign Answer Bertram e Recorded In the last 12 months, was t here a time when you were not able to pay the mortgage or rent on time? No 12/24/2024 In the past 12 months, how m any times have you moved where you were living? 0 12/24/2024 At any time in the past 12 m [facility], were you homeless or living in a longterm (including now)? No 12/24/2024 Education Answer Date Recorded What is the highest level of school you have completed or the highest degree you have received? GED or equivalent Sexually Active Control Partners Comments Yes Male Condom, None Male Comments No Sex and Gender Information Value Date Recorded Sex Assigned at Not on file Legal Sex Female 12:35 AM INFECTION PREVENTION PRACTITIONER Gender Identity Not on file Sexual Orientation Not on file Last Filed Vital Signs Vital Sign Reading Time Taken Comments Blood Pressure 100/72 11/24/2024 2:30 PM INFECTION PREVENTION PRACTITIONER Pulse 78 11/24/2024 2:30 PM INFECTION PREVENTION PRACTITIONER Temperature 36.6 C (97.9 F) 11/24/2024 2:30 PM INFECTION PREVENTION PRACTITIONER Respiratory Rate 16 11/24/2024 2:30 PM INFECTION PREVENTION PRACTITIONER Oxygen Saturation 100% 11/24/2024 2:30 PM INFECTION PREVENTION PRACTITIONER Inhaled Oxygen Concentration - - Weight 68.9 kg (152 lb) 11/24/2024 2:30 PM INFECTION PREVENTION PRACTITIONER Height 157.5 cm (5' 2 ) 11/24/2024 2:30 PM INFECTION PREVENTION PRACTITIONER Body Mass Index 27.8 11/24/2024 2:30 PM INFECTION PREVENTION PRACTITIONER Plan of Treatment Health Maintenance Due Date Last Done Comments Human Papillomavirus (HPV) Immunization (3 - 3-dose series) 02/20/2022 11/28/2021, 05/13/2020, 05/13/2020 Influenza Immunization (Season Ended) 2025 08/24/2015, 08/24/2015 Pap Smear 09/20/2025 09/20/2022, 05/23/2021 DTaP/Tdap/Td Immunization (10 - Td or Tdap) 01/17/2034 01/18/2024, 05/08/2023, 05/13/2020, Additional history exists Td Immunization Every 10 Years (Adults With 1 Tdap) 01/17/2034 01/18/2024, 05/08/2023, 05/13/2020, Additional history exists Respiratory Syncytial Virus (RSV) Immunization (Adult) (1 - 1-dose 75+ series) 2073 Hepatitis B Immunization Completed 999, 1998, 1998 Meningococcal Immunization (ACWY) Completed 08/24/2015, 10/06/2009, 10/13/1999, Additional history exists SARS-COV-2 Immunization Discontinued 06/12/2021, 05/22 Pneumococcal Immunization Combined Completed 08/24/2022 Hepatitis C Virus (HCV) Screening Completed 12/27/2022, 01/26/2021 Rotavirus Immunization Aged Out No lo nger eligible based on patient's age to complete this topic Procedures Procedure Name Priority Date/Time Associated Diagnosis Comments POC GROUP A STREP BY MOLECULAR Routine 11/24/2024 2:38 PM INFECTION PREVENTION PRACTITIONER Sore throat PATHOLOGY CYTOLOGY SCHOOL COMMUNITY RELATIONS COORDINATOR Routine 09/20/2022 2:08 PM INFECTION PREVENTION PRACTITIONER Cervical cancer screening from Last 3 Months or Most Recently Relevant to Health Maintenance Results * POC GROUP A STREP BY MOLECULAR (11/24/2024 2:38 PM INFECTION PREVENTION PRACTITIONER) STREP A DNA Negative Negative, Invalid PROCEDURE CONTROL Valid 11/24/2024 2:38 PM INFECTION PREVENTION PRACTITIONER Oneyda Reed MECHANICAL HANDYMAN, STEEL FITTER POINT OF CARE TESTIN G (MANUAL) Final Result * PATHOLOGY CYTOLOGY SCHOOL COMMUNITY RELATIONS COORDINATOR (09/20/2022 2:08 PM INFECTION PREVENTION PRACTITIONER) SPECIMEN ADEQUACY Satisfactory for evaluation. Endocervical/transf ormation zone component is absent. 09/26/2022 8:15 AM INFECTION PREVENTION PRACTITIONER [facility] DESCRIPTIVE DIAGNOSIS NEGATIVE FOR INTRAEPITHELIAL LESIONS OR MALIGNANCY. 09/26/2022 8:15 AM INFECTION PREVENTION PRACTITIONER [facility] at 0815 INFECTION PREVENTION PRACTITIONER HPV Reflex if ASCUS? Yes 09/26/2022 8:15 AM INFECTION PREVENTION PRACTITIONER [facility] Automated Examination This sample was not evaluated by the automated imaging and review system due to technical and/or biologic factor(s). The case was screened, reviewed, and finalized by a sheet rock installer and/or pathologist. 09/26/2022 8:15 AM INFECTION PREVENTION PRACTITIONER [facility] Disclaimer The PAP smear is a screening test designed to detect cancerous or precancerous cells of the uterine cervix. It is one of the best means available for detection of cervical cancer but still carries an inherent false-negative rate. The consequences of a false-negative PAP result can be minimized by adhering to current screening guidelines. The following are general guidelines recommended by the ACS, ASCP, ASCCP, and ACOG: PAP testing is recommended every three years for women 21-29, Co-Testing , a PAP test in conjunction with an HPV (Human Papillomavirus) test for women ages 30-65, and no PAP or HPV testing for women under the age of 21 or older than 65 unless clinically indicated. 09/26/2022 8:15 AM INFECTION PREVENTION PRACTITIONER [facility] Other CERVIX UTERI STRUCTURE / Unknown Non-Phlebotomy Collection / Unknown 09/20/2022 2:08 PM INFECTION PREVENTION PRACTITIONER 09/20/2022 2:08 PM INFECTION PREVENTION PRACTITIONER us Beatrice Wray PAC PATHOLOGY/CYTOLOGY ORDER JEANNETTE Final Result [facility] [address] [place] [address], [place] from Last 3 Months or Most Recently Relevant to Health Maintenance [facility] Care Teams Tumbler Operator Relationship Specialty Start Date End Date Oneyda Reed APRN, CNP [address] [address] PCP - General Advanced Practice Nurse 02/20/22
--- OUTSIDE RECORDS SUMMARY | 2025-02-14 12:34 | XMS_ITS | Encounter Summary ---
Author Organization [facility] Address [address] [place] [address] Phone Care Team Providers Care Hand Violin Maker Name Role Phone Rufus Londono PAC Primary Care Provider U navaildion Provider, Unknown Primary Care Provider Unavaila ble Rufus Londono PAC Primary Care Provider U navailable Oneyda Reed APRN, REGIONAL FACILITIES SPECIALIST Primary Care Provid er Reason for Visit * Reason Comments Medication Refill Encounter Details Date Type Department Care Team (Late st Contact Info) Description 04/28/2020 Refill [facility] [place] [address] [place] [id number] Rufus Londono, MELANIE Medication Refill Social History Tobacco Use Types Packs/Day Years Used Date Smoking Tobacco: Former Cigarettes 1 2 0 05/21/2016 - 05/21/2018 Smokeless Tobacco: Never Comments:patient uses only J ewel smokind device Alcohol Use Standard Drinks/Week Comments No 0 (1 standard drink = 0.6 oz pur e alcohol) 1-2 per month PHQ-2 Answer Date Recorded PHQ-2 Score 0 10/17/2019 Sexually Active Control Partners Comments Yes None Male Comments No Sex and Gender Information Value Date Recorded Sex Assigned at Not on file Legal Sex Female 12:35 AM EPIC APPLICATION COORDINATOR Gender Identity Not on file Sexual Orientation Not on file documented as of this encounter Miscellaneous Notes * Telephone Encounter - Laure Bernstein RN - 05/03/2020 12:35 PM CDT Request for sertraline 25mg refused. Dose adjustment was made on 04/28/20 and a new rx was sent in for increased dosage. Pharmacy notified via [employer]. documented in this encounter Plan of Treatment Not on file documented as of this encounter Visit Diagnoses Not on filedocumented in this encounter Additional Health Concerns Assessment Noted Time PHQ-9 Depression Total Score: 0 10/17/19 2:00 PM EPIC APPLICATION COORDINATOR documented as of this encounter Care Teams Hand Violin Maker Relationship Specialty Start Date End Date Rufus Londono, PAC PCP - General Physician Ship Laborer 10/17/19 09/16/20 Provider, Unknown UNKNOWN PCP - General 09/17/20 02/07/21 Rufus Londono, PAC PCP - General Physician Ship Laborer 02/08/21 02/19/22 Oneyda Reed APRN, REGIONAL FACILITIES SPECIALIST [id number] [address] PCP - General Advanced Practice Nurse 02/20/22 documented as of this encounter
--- OUTSIDE RECORDS SUMMARY | 2025-02-14 12:34 | XMS_ITS | Encounter Summary ---
Author Organization [facility] Address [address] [place] [address] Phone Care Team Providers Care Ethylene Plant Operator Name Role Phone Oneyda Reed APRN, CNP Primary Care Provid er Reason for Visit * Reason Comments Medication Refill Encounter Details Date Type Department Care Team (Late st Contact Info) Description 01/09/2024 [facility] [place] [address] Oneyda Reed APRN, CNP [address] [address] Medication Refill Social History Tobacco Use Types Packs/Day Years Used Date Smoking Tobacco: Former Cigarettes 1 2 0 05/21/2016 - 05/21/2018 Smokeless Tobacco: Never Comments:patient uses only J Cutefundel smokind device Alcohol Use Standard Drinks/Week Comments No 0 (1 standard drink = 0.6 oz pur e alcohol) 1-2 per month PHQ-2 Answer Date Recorded Total Score - Questions 1-9 0 02/05 Education Answer Date Recorded What is the highest level of school you have completed or the highest degree you have received? GED or equivalent Sexually Active Control Partners Comments Yes None, Male Condom Male Comments No Sex and Gender Information Value Date Recorded Sex Assigned at Not on file Legal Sex Female 12:35 AM BRIAR WOOD SORTER Gender Identity Not on file Sexual Orientation Not on file documented as of this encounter Miscellaneous Notes * Telephone Encounter - Rosmery Silva RMA - 01/10/2024 2:16 PM CDT scheduled * Telephone Encounter - Gaby Zamora RN - 01/10/2024 10:12 AM CDT Needs OV with PCP * Telephone Encounter - Gaby Zamora RN - 01/10/2024 10:12 AM CDT Medication failed the protocol, provider to review and approve the medication order if appropriate. Requested Prescriptions Pending Prescriptions Disp Refills sertraline (ZOLOFT) 50 MG Tablet [Pharmacy Med Name: SERTRALINE HCL 50 MG TABLET] 90 Tablet 0 Sig: TAKE 1 TABLET BY MOUTH EVERY DAY [facility] (6 Month Refill Only) Protocol Failed - 01/09/2024 4:21 PM Failed - Visit with relevant provider in past 6 months or upcoming 90 days Recent Visits No visits were found meeting these conditions. Showing recent visits within past 182 days and meeting all other requirements Future Appointments No visits were found meeting these conditions. Showing future appointments within next 90 days and meeting all other requirements Failed - Has an encounter in the past 6 months with a depression, anxiety, adjustment disorder, OCD, or PTSD visit diagnosis Passed - No test in the past 12 months or most recent test was negative Passed - No active on record Passed - Patient has established therapy with SSRI for at least 6 months documented in this encounter Plan of Treatment Not on file documented as of this encounter Visit Diagnoses Diagnosis Anxiety Anxiety state, unspecified documented in this encounter Additional Health Concerns Assessment Noted Time PHQ-9 Depression Total Score: 0 02/23/20 23 11:00 AM CDT documented as of this encounter Care Teams Ethylene Plant Operator Relationship Specialty Start Date End Date Oneyda Reed APRN, VINH [address] [address] PCP - General Advanced Practice Nurse 02/20/22 documented as of this encounter
--- OUTSIDE RECORDS SUMMARY | 2025-02-14 12:34 | XMS_ITS | Encounter Summary ---
Author Organization [facility] Address [address] [place] [address] Phone Care Team Providers Care Space And Missile Operations Name Role Phone Rufus Londono Primary Care Provider Oneyda Rivas APRN, CNP Primary Care Provid er Reason for Visit * Reason Comments Medication Refill Encounter Details Date Type Department Care Team (Late st Contact Info) Description 11/30/2021 Refill [facility] - [place] [address] [place] [address] Rufus Londono, MELANIE Medication Refill Social History Tobacco Use Types Packs/Day Years Used Date Smoking Tobacco: Former Cigarettes 1 2 0 05/21/2016 - 05/21/2018 Smokeless Tobacco: Never Comments:patient uses only J ewel smokind device Alcohol Use Standard Drinks/Week Comments No 0 (1 standard drink = 0.6 oz pur e alcohol) 1-2 per month PHQ-2 Answer Date Recorded Total Score - Questions 1-9 6 05/0 03/2021 Sexually Active Control Partners Comments Yes None Male Comments No Sex and Gender Information Value Date Recorded Sex Assigned at Not on file Legal Sex Female 12:35 AM PATCH WASHER Gender Identity Not on file Sexual Orientation Not on file COVID-19 Exposure Response Date Recorded In the last month, have you been in contact with someone who was confirmed or suspected to have Coronavirus / COVID-19? No / Unsure 11/28/2021 9:28 AM PATCH WASHER documented as of this encounter Miscellaneous Notes * Telephone Encounter - Clau Ba RN - 11/30/2021 1:49 PM CST pantoprazole (PROTONIX) 40 MG Tablet Delayed Response 90 Tablet 0 11/28/2021 H WASHER documented in this encounter Plan of Treatment Not on file documented as of this encounter Visit Diagnoses Diagnosis Gastroesophageal reflux disease, unspecified whether esophagitis present documented in this encounter Additional Health Concerns Assessment Noted Time PHQ-9 Depression Total Score: 6 02/11/20 21 1:00 PM CDT documented as of this encounter Care Teams Space And Missile Operations Relationship Specialty Start Date End Date Rufus Londono PAC PCP - General Physician Bevel Mill Operator 02/08/21 02/19/22 Oneyda Reed APRN, PROCESS DEVELOPMENT MANAGER [address] [phone] PCP - General Advanced Practice Nurse 02/20/22 documented as of this encounter
--- OUTSIDE RECORDS SUMMARY | 2025-02-14 12:34 | XMS_ITS | Data Portability ---
Author Organization [facility] [place] Address [address] [place] [address] [place] [address] Assessment No assessment recorded. Plan of Treatment Reminders Order Date Submit Date Provider Last Modified By Organization Details Last Modified Time Details Appointments None record ed. Lab None record ed. Referral None record ed. Procedures None record ed. Surgeries None record ed. Imaging non-st ress test 023 06/04/20 23 [email or web address] [place], [address], [place], [address], 3 16:18:08 US, obstet [email or web address], follow -up 023 06/04/20 23 [place], [address], [place], [address], 3 15:15:33 Medication Orders None record ed. Patient TargetsNo targets recorded. Patient InstructionsNo instructions recorded. Reason for Referral None Reported. Results Created Date Observation Date Name Description Value Unit Range Abnormal Flag Note LastModifiedBy Organization Detail LastModifiedTime 05/18/20 23 05/18/2023 CMP(C OMPRE HENSI VE METAB OLIC PANEL ) sodium 137 mmol/ L 133-14 6 Not Available [facility] (Lab) [address], [place], [address], 05/19/2023 12:39:00 05/18/20 23 05/18/2023 CMP(C OMPRE HENSI VE METAB OLIC PANEL ) potassium 3.7 mmol/ L 3.5-5. 1 Not Available [facility] (Lab) [address] [facility], [place], [address], 05/19/2023 12:39:00 05/18/20 23 05/18/2023 CMP(C OMPRE HENSI VE METAB OLIC PANEL ) chloride 105 mmol/ L 98-107 Not Available [facility] (Lab) [address] [facility], [place], [address], 05/19/2023 12:39:00 05/18/20 23 05/18/2023 CMP(C OMPRE HENSI VE METAB OLIC PANEL ) carbon dioxide 22 mmol/ L 21-31 Not Available [facility] (Lab) [address] [facility], [place], [address], 05/19/2023 12:39:00 05/18/20 23 05/18/2023 CMP(C OMPRE HENSI VE METAB OLIC PANEL ) anion gap 10 mmol/ L 4-13 Not Available [facility] (Lab) [address] [facility], [place], [address], 05/19/2023 12:39:00 05/18/20 23 05/18/2023 CMP(C OMPRE HENSI VE METAB OLIC PANEL ) blood urea nitrogen 5 mg/dL 7-25 low Not Available [facility] (Lab) [address] [place], [address], 05/19/2023 12:39:00 05/18/20 23 05/18/2023 CMP(C OMPRE HENSI VE METAB OLIC PANEL ) creatinine 0.60 mg/dL 0.60-1 .30 Not Available [facility] (Lab) [address] [place], [address], 05/19/2023 12:39:00 05/18/20 23 05/18/2023 CMP(C OMPRE HENSI VE METAB OLIC PANEL ) egfrcr (CKD-epi 2020) >90 mL/mi n/1.7 3_m2 >=60 Not Available [facility] (Lab) [address] [facility], [place], [address], 05/19/2023 12:39:00 05/18/20 23 05/18/2023 CMP(C OMPRE HENSI VE METAB OLIC PANEL ) calcium 9.2 mg/dL 8.3-10 .5 Not Available [facility] (Lab) [address] [facility], [place], [address], 05/19/2023 12:39:00 05/18/20 23 05/18/2023 CMP(C OMPRE HENSI VE METAB OLIC PANEL ) glucose 105 mg/dL 70-100 high Not Available [facility] (Lab) [address] [facility], [place], [address], 05/19/2023 12:39:00 05/18/20 23 05/18/2023 CMP(C OMPRE HENSI VE METAB OLIC PANEL ) protein, total 5.5 g/dL 6.4-8. 3 low Not Available [facility] (Lab) [address] [facility], [place], [address], 05/19/2023 12:39:00 05/18/20 23 05/18/2023 CMP(C OMPRE HENSI VE METAB OLIC PANEL ) albumin 3.2 g/dL 3.5-5. 0 low Not Available [facility] (Lab) [address] [facility], [place], [address], 05/19/2023 12:39:00 05/18/20 23 05/18/2023 CMP(C OMPRE HENSI VE METAB OLIC PANEL ) ALT 9 units /L 9-43 Not Available [facility] (Lab) [address] [place], [address], 05/19/2023 12:39:00 05/18/20 23 05/18/2023 CMP(C OMPRE HENSI VE METAB OLIC PANEL ) alkaline phosphatase 180 units /L 34-104 high Not Available [facility] (Lab) [address] [facility], [place], [address], 05/19/2023 12:39:00 05/18/20 23 05/18/2023 CMP(C OMPRE HENSI VE METAB OLIC PANEL ) AST 17 units /L 13-39 Not Available [facility] (Lab) [address] [facility], [place], [address], 05/19/2023 12:39:00 05/18/20 23 05/18/2023 CMP(C OMPRE HENSI VE METAB OLIC PANEL ) bilirubin, total 0.3 mg/dL 0.2-1. 2 Not Available [facility] (Lab) [address] [facility], [place], [address], 05/19/2023 12:39:00 05/18/20 23 05/18/2023 BILE ACIDS , TOTAL bile acids, total 15 umol/ L 0-10 high Not Available [facility] (Lab) [address] [facility], [place], [address], 05/19/2023 12:39:00 06/04/20 23 06/04/2023 BILE ACIDS , TOTAL bile acids, total 20 umol/ L 0-10 high Not Available [facility] (Lab) [address] [facility], [place], [address], 06/05/2023 13:23:48 05/30/20 23 05/18/2023 US, obste tric, follo w-up No observ ation record ed. [email or web address] [facility] [address] [place], [address], 07/30/2023 16:24:33 06/02/20 23 06/02/2023 non-s tress test No observ ation record ed. [email or web address] [facility] [address], [place], [address], 06/03/2023 14:39:30 06/04/20 23 06/04/2023 US, obste tric, follo w-up No observ ation record ed. [facility] [address], [place], [address], 06/04/2023 15:35:29 06/04/20 23 06/04/2023 US, obste tric, follo w-up No observ ation record ed. ABEL Lora [address], [place], [address], 06/20/2023 05:43:44 06/04/20 23 06/04/2023 non-s tress test No observ ation record ed. [address], [place], [address], 06/04/2023 15:31:18 06/07/2006/07/2023 non-s tress test No observ ation record ed. [email or web address] [facility], [place], [address], 06/07/2023 19:47:01 06/14/20 23 06/14/2023 US, doppl er, venou s No observ ation record ed. [address] [facility], [place], [address], 07/30/2023 17:07:08 06/14/20 23 06/14/2023 US, doppl er, venou s No observ ation record ed. [address] [facility], [place], [address], 07/30/2023 17:07:20 06/14/20 23 06/14/2023 XR, chest , 2 view No observ ation record ed. [address] [facility], [place], [address], 07/30/2023 17:07:34 06/14/20 23 06/14/2023 XR, chest No observ ation record ed. [email or web address] [address] [facility], [place], [address], 07/30/2023 16:51:51 06/14/20 23 06/14/2023 US, obste tric, limit ed No observ ation record ed. [email or web address] [place] [address], [place], [address], 07/30/2023 17:08:08 06/14/20 23 06/14/2023 US, obste tric, follo w-up No observ ation record ed. [email or web address] [place] [address] [address], [place], [address], 07/30/2023 16:51:07 Result Notes None recorded. Problems Name Problem SNOMED Code Status Onset Date Resolution Date Notes Provider Name and Address Organization Details Recorded Time Pregnanc y 00453149 Completed 202207/09/2023 Britaney Reyna null, [facility] 3 14:16:16 Dichorio sherri diamniot ic twin pregnanc y 750895870 Completed MFM, del 38w, wants CS, ante testing Britaney Reyna null, [facility] 3 14:16:10 Asthma 272097657 Active 2022 Britaney Reyna null, [facility] 3 14:16:10 Asthma 046163924 Completed 2022 Britaney Reyna null, [facility] 3 14:16:10 Dichorio sherri diamniot ic twin pregnanc y 160262144 Active MFM, del 38w, wants CS, ante testing Britaney Reyna null, [facility] 3 14:16:10 Anxiety in pregnanc y 36160276320 109 Active zoloft Britaney Reyna null, [facility] 3 14:16:10 Anxiety in pregnanc y 19446157461 109 Completed zoloft Britaney Reyna null, [facility] 3 14:16:10 Electron ic cigarett e user 762308626 Completed trying to [facility] 14:16:10 Anemia 849004357 Completed 2022 Anemia panel pending. IV iron order faxed 03/21 [facility] 3 14:16:10 Steriliz ation requeste d 405600589 Active consente d, form signed, will do with CS Valente Orellana [facility] 3 14:16:10 Genital herpes simplex 35871434 Active valtrex 34w Valente Orellana [facility] 3 14:16:10 Steriliz ation requeste d [id number] Completed consente d, form signed, will do with CS Valente Orellana [facility] 3 14:16:10 Genital herpes simplex 20114192 Completed valtrex 34w Valente Orellana [facility] 3 14:16:10 Cholesta sis of pregnanc y 027041569 Active ursodiol 500 BID Valente Orellana [facility] 3 14:16:10 Cholesta sis of pregnanc y 376885290 Completed ursodiol 500 BID Valente Orellana [facility] 3 14:16:10 Problem Notes None recorded. Procedures Surgical History Date Name Laterality Status Provider Name and Address Organization Details Recorded Time 06/14/20 SECTION (SURG) completed Kari Tracy [facility] 06/15/2023 09:47:46 11/30/19 23 Date of Last Pap Smear completed Jennifer Martinez [facility] 11/30/2022 17:37:21 10/08/19 19 Laparoscopy completed Jennifer Martinez [facility] 11/30/2022 17:40:30 10/08/19 16 termination of completed Jennifer Martinez [facility] 11/30/2022 17:40:54 Imaging Results Imaging Date Name Status LastModified by Organiz ation Details LastModified Time 05/18/2023 US, obstetric, follow-up completed [address] [facility] [address] [place], [address], 07/30/2023 16:24:33 06/02/2023 non-stress test completed [address], [address], 06/03/2023 14:39:30 06/04/2023 US, obstetric, follow-up completed [address], [place], [address], 06/04/2023 15:35:29 06/04/2023 US, obstetric, follow-up active ABEL Paul[address] [facility], [place], [address], 06/20/2023 05:43:44 06/04/2023 non-stress test completed [address] [place] [address], [place], [address], 06/04/2023 15:31:18 06/07/2023 non-stress test completed [email or web address], [address], 06/07/2023 19:47:01 06/14/2023 US, doppler, venous completed [address], [address], 07/30/2023 17:07:08 06/14/2023 US, doppler, venous completed [address] [facility] [place], [address], 07/30/2023 17:07:20 06/14/2023 XR, chest, 2 view completed [address] [address], [place], [address], 07/30/2023 17:07:34 06/14/2023 XR, chest completed [address] [address], [place], [address], 07/30/2023 16:51:51 06/14/2023 US, obstetric, limited completed [address] [place] [address], [place], [address], 07/30/2023 17:08:08 06/14/2023 US, obstetric, follow-up completed [address], [address], 07/30/2023 16:51:07 Procedure Notes None recorded. Medical Equipment None Reported. Allergies Allergen ID Allergen Name Allergen Category Reaction Reaction Severity Criticality Documentation Date Start Date Code Code System Note Provider Name and Address Organization Details Recorded Time morphine medicatio n Not available Not available Not available 11/30/2022 7052 RxNorm Jennifer Martinez [facility] 17:36:51 Medications Name Sig Start Date Stop Date Status Note LastModified by Organization Details LastModified Time nifedipine ER 30 mg tablet,exte nded release 24 hr 30 MG ORALLY DAILY NEEDED FOR CONTRACTI ONS 05/16 completed Not Available Not Available Not Available fluconazole 150 mg tablet Take 1 tablet every day by oral route. 07/06 completed Not Available Not Available Not Available valacyclovi r 1 gram tablet TAKE 1 TABLET BY MOUTH EVERY 12 HOURS FOR 3 DAYS 05/16 completed Not Available Not Available Not Available hydrocodone 5 mg-acetamin ophen 325 mg tablet TAKE 1 TABLET BY MOUTH EVERY 6 HOURS NEEDED 07/06 completed Not Available Not Available Not Available promethazin e 12.5 mg tablet TAKE 1 TABLET BY MOUTH TWICE DAILY 12/27 completed Not Available Not Available Not Available ondansetron HCl 4 mg tablet TAKE 1 TABLET BY MOUTH TWICE DAILY 12/27 completed Not Available Not Available Not Available valacyclovi r 500 mg tablet 07/06 completed Not Available Not Available Not Available oxycodone-a cetaminophe n 5 mg-325 mg tablet 07/06 completed Not Available Not Available Not Available famotidine 20 mg tablet TAKE 1 TABLET BY MOUTH EVERY DAY 2022 active Not Available Not Available Not Avai lable nifedipine 10 mg capsule 07/06 completed Not Available Not Available Not Available cephalexin 500 mg capsule TAKE 1 CAPSULE BY MOUTH EVERY 12 HOURS FOR 7 DAYS 12/27 completed Not Available Not Available Not Available ursodiol 300 mg capsule TAKE 1 CAPSULE BY MOUTH TWICE A DAY 2022 active Not Available Not Available Not Avai lable docusate sodium 100 mg capsule TAKE 1 CAPSULE BY MOUTH TWICE A DAY 07/06 completed Not Available Not Available Not Available famotidine 40 mg/5 mL (8 mg/mL) oral suspension GIVE 2.5 ML BY MOUTH ONCE DAILY 07/06 completed Not Available Not Available Not Available ibuprofen 600 mg tablet TAKE 1 TABLET BY MOUTH EVERY 6 HOURS NEEDED FOR CRAMPING active Not Available Not Available No t Available labetalol 100 mg tablet TAKE 2 TABLETS BY MOUTH EVERY 12 HOURS active Not Available Not Available No t Available ondansetron 4 mg disintegrat ing tablet DISSOLVE 1 TABLET ON THE TONGUE EVERY 6 HOURS NEEDED FOR NAUSEA AND VOMITING 07/06 completed Not Available Not Available Not Available sertraline 50 mg tablet TAKE 1 TABLET BY MOUTH EVERY DAY active Not Available Not Available No t Available nitrofurant oin monohydrate /macrocryst als 100 mg capsule TAKE 1 CAPSULE TWICE A DAY MUST ADMINISTE R WITH A MEAL/FOOD 07/06 completed Not Available Not Available Not Available ursodiol 500 mg tablet TAKE 1 TABLET BY MOUTH TWICE A DAY 07/06 completed Not Available Not Available Not Available sertraline 12/19 completed Not Available Not Available Not Available famotidine 07/06 completed Not Available Not Available Not Available 07/06 completed Not Available Not Available Not Available Zyrtec 05/16 completed Not Available Not Available Not Available pantoprazol e 12/27 completed Not Available Not Available Not Available Vitals Date Recorded Body height Body mass index (BMI) Body weight Systolic blood pressure Diastolic blood pressure Provider Name and Address Organization Details Last Updated DateTime 06/04/2023 160.02 cm 32.8 kg/m2 60786.58 845 g 123 mm[Hg] 79 mm[Hg] Jennifer Martinez [facility] 15:34:20 Date Recorded Body height Body mass index (BMI) Systolic blood pressure Diastolic blood pressure Provider Name and Address Organization Details Last Updated DateTime 07/06/2023 160.02 cm 26.6 kg/m2 125 mm[Hg] 83 mm[Hg] Yasmin [facility] 07/06/2023 14:58:42 Date Recorded Body weight Provider Name an d Address Organization Details Last Updated DateTime 07/06/2023 04728.8555 g Valente Orellana [facility] 07/09/2023 14:16:14 Date Recorded Body height Body mass index (BMI) Body weight Systolic blood pressure Diastolic blood pressure Provider Name and Address Organization Details Last Updated DateTime 07/26/2023 160.02 cm 26.2 kg/m2 94253.67 g 113 mm[Hg] 71 mm[Hg] [facility] 14:26:10 Social History Question Answer Notes LastModified by Organizat ion Details LastModified Time Tobacco Smoking Status Former Smoker Jennifer Martinez [facility], [facility] 11/30/2022 17:39:45 What Is Your Level Of Alcohol Consumption? None [email or web address] Information not available 11/30/2022 If You Are , What Was Your Level Of Alcohol Consumption Prior To ? None [email or web address] Information not available 11/30/2022 Are You Blind Or Do You Have Difficulty Seeing? No [email or web address] Information not available 11/30/2022 What Is Your Level Of Caffeine Consumption? None [email or web address] Information not available 11/30/2022 In The 14 Days Before Symptom Onset, Have You Had Close Contact With A Laboratory-confir med COVID-19 While That Case Was Ill? No [email or web address] Information not available 11/30/2022 In The 14 Days Before Symptom Onset, Have You Had Close Contact With A Person Who Is Under Investigation For COVID-19 While That Person Was Ill? No [email or web address] Information not available 11/30/2022 Have You Been To An Area Known To Be High Risk For COVID-19? No [email or web address] Information not available 11/30/2022 Are You Deaf Or Do You Have Serious Difficulty Hearing? No [email or web address] Information not available 11/30/2022 What Type Of Diet Are You Following? REGULAR [email or web address] Information not available 11/30/2022 Do You Or Have You Ever Used E-cigarettes Or Vape? Current User Of Electronic Cigarettes [email or web address] Information not available 11/30/2022 Do You Use Your Seat Belt Or Car Seat Routinely? Yes [email or web address] Information not available 11/30/2022 Do You Have Smoke And Carbon Monoxide Detectors In Your Home? Yes [email or web address] Information not available 11/30/2022 Do You Feel Stressed (tense, Restless, Nervous, Or Anxious, Or Unable To Sleep At Night)? [id number] [email or web address] Information not available 11/30/2022 Do You Use Any Illicit Or Recreational Drugs? No [email or web address] Information not available 11/30/2022 Do You Use Sunscreen Routinely? Yes [email or web address] Information not available 11/30/2022 Has Tobacco Cessation Counseling Been Provided? No [email or web address] Information not available 11/30/2022 Do You Or Have You Ever Used Any Other Forms Of Tobacco Or Nicotine? Yes [email or web address] Information not available 11/30/2022 Sex: Unknown Functional Status Question Answer Note LastModified by Organizat ion Details LastModified Time Do you have difficulty walking or climbing stairs? No [email or web address] Information not available 11/30/2022 Are you able to walk? YESWOREST [email or web address] Information not available 11/30/2022 Are you able to care for yourself? Yes [email or web address] Information not available 11/30/2022 Do you have difficulty dressing or bathing? No [email or web address] Information not available 11/30/2022 What is your exercise level? Occasional [email or web address] Information not available 11/30/2022 Mental Status None recorded. Family History Relationship Description Onset Age of this Age Resolved Age Notes LastModified by Organization Details LastModified Time Father No current problems or disability [email or web address] Not available 11/09 17:39:15 Mother No current problems or disability [email or web address] Not available 11/09 17:39:15 Medical History Condition Response Allergies (Food, seasonal, environmental ) Y Other Y Breast Cancer N Drug/Latex Allergies/Reactions Y Blood Transfusion N Dermatologic Disorders N Lung Disease N Defects or Inherited Disease N Breast Problem N Gestational Diabetes N Hematologic disorders N Anesthesia Complications N History of STI N Deep Vein Thrombosis N Polycystic ovary syndrome N Anxiety Disorder Y Autoimmune disease N Arthritis N Infertility N Polyps N Acid Reflux (GERD) Y History of abnormal pap N Cancer N Stroke N Varicosities N Neurologic/Epilepsy N Endometriosis N High Cholesterol N Headaches N Fibromyalgia N Kidney Disease N Heart Problems N Kidney or Bladder Problems N Thyroid Problems N GI Problems N Eating Disorder N Anemia N Art (IVF or FET) N Psychiatric Illness N Ovarian Cancer N Diabetes N Pulmonary (TB, Asthma) N Hepatitis/Liver Disease N No Past Medical History N Eczema N Urinary Tract Infection N Abuse/Domestic Violence N Asthma Y Trauma/Violence N Depression/ depression Y Heart Disease N Pre-Eclampsia N Hypertension N Osteoporosis N Thrombophilias N Gynecological History Statement/Question Response Date of Last Mammogram Date of LMP 10/02/2022 Date of DEXA bone scan Date of Last Pap Smear 11/30/2022 Current Control Method LMP Approximate Obstetrics History GPAL:G 2 P 0 2 1 2 Type Value Multiple Births 1 Induced 1 Premature 2 Living 2 Total 2 Past Encounters Encounter ID Performer Location Encounter Start Date Encounter Closed Date Diagnosis/Indication Diagnosis SNOMED-CT Code Diagnosis ICD10 Code Diagnosis Note [id number] Martinez Snyder MD [place] [address] [address] 11/30/2022 16:07:29 11/30/2022 17:35:35 [id number] Ceci Montgomery CNM [place] [address],[place] [address] 11/30/2022 16:08:52 11/30/2022 17:56:28 test positive 601210142 Z32.01 Risk factors addressed: Tobacco Cessation, Safe Sexual Practices, environmen theodora, work hazards, travel restrictio ns, seat belt use.Eat a health well balanced diet, avoid alcohol, tobacco, and street drugs.Enga ge in daily low impact exercise, avoid temperatur e extremes, and cat, rodent, and bird feces.Avoi d travel to areas where zika virus is a concern.Of fered cf/sma/nip t. Handouts given and discussed with patient.Ch ildbirth classes recommende d.New OB sheet given.If previous , counseling .Pt verbalizes that she understand s the importance of above instructio ns.All questions were answered.P atient reminded to have annual well woman examinatio n and address preventati ve healthcare . Amenorrhea 42738624 N91. 2 Nausea 550038180 R11.0 [id number] Ceci Montgomery [facility] [address],[place] [address] 12/19/2022 16:11:27 12/20/2022 18:03:33 Routine care 740607528 Z34.90 Nausea and vomiting 1693 1999 R11.2 We have discussed options for treatment of nausea. Would like to try zofran. Encouraged to go in for hydration if unable to hold anything down for 24 hours. Discussed risk of constipati on with use of zofran. Pt verbalized understand ing.Recent ly treated for UTI. Culture report not available today. Will finish antibiotic s as prescribed .New OB visit scheduled. [id number] Roopa Main MD [place] [address],[place] [address] 12/27/2022 11:52:34 12/27/2022 12:43:19 screening 585645205 Z36.82 O30.049 Z3A.12 [id number] Roopa Main MD [place] [address],[place] [address] 12/27/2022 11:54:47 12/27/2022 13:49:11 Routine care 840266334 Z34.91 Anxiety in 799 1474160 9109 F41.9 Dichorioni c diamniotic twin 361213358 O30.049 [facility] 785806629 J45.90 9 [id number] MD Felicita Jones [address],[place] [address] 01/22/2023 13:59:16 01/23/2023 17:56:22 Dichorionic diamniotic twin 015867251 O30.049 [id number] Martinez Snyder MD [place] [address],[place] [address] 02/19/2023 15:16:59 02/19/2023 16:46:34 Routine care 799219928 Z34.02 [id number] Roopa Main MD [place] [address],[place] [address] 03/26/2023 16:05:26 03/27/2023 15:07:55 Routine care 040204685 Z34.91 Dichorioni c diamniotic twin 766838943 O30.049 [id number] Roopa Main MD [place] [address],[place] [address] 04/17/2023 15:16:21 04/18/2023 11:39:56 Dichorionic diamniotic twin 751578539 O30.049 Genital he rpes simplex 15522799 A60.9 Sterilizat ion requested 369487154 Z30.2 [id number] Roopa Main MD [place] [address],[place] [address] 04/23/2023 15:33:46 04/23/2023 16:14:02 Dichorionic diamniotic twin 882277185 O30.049 O26.859 Z3A.29 [id number] Roopa Main MD [place] [address],[place] [address] 05/02/2023 14:02:27 05/03/2023 13:46:46 Dichorionic diamniotic twin 456870173 O30.049 O26.859 Z3A.29 [id number] Roopa Main MD [place] [address],[place] [address] 05/16/2023 13:52:13 05/16/2023 14:54:36 Dichorionic diamniotic twin 719226011 O30.049 O26.859 Z3A.29 [id number] Roopa Main MD [place] [address],[place] [address] 06/04/2023 13:44:14 06/04/2023 16:18:08 Dichorionic diamniotic twin 799214905 O30.043 O26.613 Z3A.35 [id number] Roopa Main MD [place] [address],[place] [address] 06/04/2023 13:46:09 06/04/2023 15:15:33 Dichorionic diamniotic twin [id number] O30.043 O26.613 Z3A.35 [id number] Roopa Main MD [place] [address],[place] [address] 06/04/2023 13:46:33 06/07/2023 22:05:52 Cholestasis of [id number] O26.619 Dichorioni c diamniotic twin [id number] O30.043 O26.613 Z3A.35 [id number] ANGELA CROFT MD [place] [address],[place] [address] 07/06/2023 14:55:32 07/07/2023 19:04:27 Surgical incision wound of skin [id number] 00 R23.8 S/p c section on . Incision well-heale d without any signs of infection. Small area of granulatio n tissue without drainage.2 . RTC 4wks for post-partu m check [id number] MD Felicita IRVING [address],[place] [address] 07/26/2023 14:20:18 07/26/2023 15:05:03 state [id number] Z39.2 S/p PLTCS 06/14 here today for a visit.1. Patient recovering well2. Plans to continue combo feeding3. Tubal at time of c section, no issues4. Patient instructed to follow up in 1 year for well woman exam unless need arises prior Health Concerns Section Related Observation LastModified by Organization Detai ls LastModified Time None Recorded Concern Status LastModified by Organization Details LastModified Time None Recorded Advance Directives Directive None Recorded Payers Encounter Date Sequence Insurance Name Policy Number Policy Pollock Covered Member ID Pollock Member ID Guarantor Name 06/04/2023 1 UMR [id number] Concha Cardoso [id number] Marianne A Fox 06/04/2023 2 [place] [facility] Marianne Hernandeznes [id number] Marianne A Fox 06/04/2023 1 UMR [id number] Concha Cardoso [id number] Marianne A Fox 06/04/2023 2 [place] [facility] Marianne Hernandeznes [id number] Marianne A Fox 06/04/2023 1 UMR [id number] Concha Cardoso [id number] Marianne A Fox 06/04/2023 2 [place] [facility] Marianne Fox [id number] Marianne A Fox 07/06/2023 1 [id number] Concha Cardoso [id number] Marianne A Fox 07/06/2023 2 [place] [facility] Marianne Fox [id number] Marianne A Fox 07/26/2023 1 R [id number] Cnocha Cardoso [id number] Marianne A Fox 07/26/2023 2 [place] [facility] Marianne Fox [id number] Marianne Fox Notes Date Note Type Note Provider Name and Address Organization Details Recorded Time 07/06/2023 text/html s/p C/S 06/14/23. She presents today for her incision check. Her postop course has been unremarkable. She has minimal spotting, denies pain, fever or any other concerning symptoms. +diarrhea. She is combo feeding and her babies are doing well. Her mood is good. ANGELA CROFT MD [address], [place], [address], [facility] 07/08/2023 22:59:58 07/26/2023 text/html S/P PLTCS on on 06/14. was complicated b di/di twin gestation, cholestasis, preeclampsia without severe features, and anemia. Babies are doing well, Aiken and Walker. Denies any specific problems since delivery. Patient overall feeling well. Patient is combo feeding without problems. Minimal spotting. Bowel and bladder function are normal. Pap due . Denies any signs or symptoms of depression. Is coping with parenting well. Patient has not been sexually active since delivery. Patient had tubal ligation at time of c section. Calypso Depression Scale 4 ANGELA CROFT MD [address], [place], [address], [facility] 07/26/2023 15:01:11 OBGyn Episode Ob Episode Information Episode Created Date Number of Fetuses Patient Bloodtype Patient rh Status Prepregnancy Weight lbs Domestic Partner Domestic Partner Phone Father Name Room Inspector Status 11/30/19 23 1 CLOSED Fetus Data First Name Last Name Admitted to NICU Weight (g) Sex Living Outcome Pediatric Complications Fetus ID Race Codes Race Delivery Type , Induced [id number] El Calculation Initial El Date Initial Exam Date Initial Exam Provider Initial Ultrasound Date Last Menstrual Period Date Ultra Sound Weeks Gestation 0 Eighteen To Twenty Week El Update Ultra Sound Date Fundal Height At Umbil Quickening Date Ultra Sound Latest Weeks Gestation Final El Confirmed By Final El Confirmed Date Final El Date Ultra Sound Latest Days Gestation 0 0 Menstrual History Last Menstrual Date Menses Monthly On Bcp Conception Prior Menses Frequency Hcg Plus Date Menarche Onset Age Delivery Information Delivery Date Delivery Type Labor Anesthesia Weeks Gestation Incision Type Labor Labor Length Hrs Delivered By Post Complications Tubal Sterilization Discharge Date Comments 6 Discharge Information Feeding Method Contraceptive Method Maternal HG B and HCT Levels Ob Episode Information Episode Created Date Number of Fetuses Patient Bloodtype Patient rh Status Prepregnancy Weight lbs Domestic Partner Domestic Partner Phone Father Name Room Inspector Status 12/28/19 23 2 O Positive 146 CLOSED Fetus Data First Name Last Name Admitted to NICU Weight (g) Sex Living Outcome Pediatric Complications Fetus ID Race Codes Race Delivery Type 2919.99 85 M true Prematur e [address] Primary 2971.02 76 M true Prematur e 66142 Primary Problems Problem Notes ANGELIQUE Mims - 05/18/23 1030 a Problem Name Start Date End Date Resolution Snomed Code Not e Anemia 03/20/2023 [id number] Anemia pa stephanie pending. IV iron order faxed 03/21 Cholestasis of [id number] ursodiol 500 BI D Sterilization requested [id number] consented, form signed, will do with CS Genital herpes simplex [id number] 6 valtrex 34w Asthma 12/27/2022 [id number] Anxiety in [id number] zoloft Electronic cigarette user [id number] trying to quit Dichorionic diamniotic twin [id number] ANGELIQUE, del 38w, wants CS, ante testing El Calculation Initial El Date Initial Exam Date Initial Exam Provider Initial Ultrasound Date Last Menstrual Period Date Ultra Sound Weeks Gestation 07/09/2023 12/27/2022 11/30/2022 10/02/2022 8 Eighteen To Twenty Week El Update Ultra Sound Date Fundal Height At Umbil Quickening Date Ultra Sound Latest Weeks Gestation Final El Confirmed By Final El Confirmed Date Final El Date Ultra Sound Latest Days Gestation 0 [id number] 12/27/2022 07/09/20 23 0 Pre-yonis Flowsheet Flowsheet Date 12/27/2022 Levin Score Blood Edema Fundus Height Fundus Units Glucose Ketones Leukocytes Nitrite Labor Signs Protein Cervic Dilation Cervic Effacement Cervic Station neg none none trace Type Weight in lbs Pre/Post Dialysis Refused Weight 144.440489835779 BP Diastolic BP Location Tested BP Systolic BP Type 65 99 Fetus Heart Rate Present A 150 B 160 Fetus Movement A No B No Comments Marianne is a 22yo at 12.2 with di/di twins for care. NOrmal NT x2 today. She has a history of anxiety on zoloft for two years, very stable, discussed risks of zoloft in . She vapes, and has cut down to the lowes percentage of nicotine and is now cutting down on frequency. We discussed risks of tobacco use and vaping in , including risks we may not yet know re vaping. She has mild asthma and has an inhaler to use as needed. We discussed the risks of twins in depth. She will start low dose ASA. MFM US and consult at 18w. Plan 38w delivery, growth US, and testing. We discussed mode of delivery and she wants a CS regardless of positions. labs and NIPT today. Flowsheet Date 01/22/2023 Levin Score Blood Edema Fundus Height Fundus Units Glucose Ketones Leukocytes Nitrite Labor Signs Protein Cervic Dilation Cervic Effacement Cervic Station neg trace none trace Type Weight in lbs Pre/Post Dialysis Refused Weight 151.395397123698 BP Diastolic BP Location Tested BP Systolic BP Type 60 102 Fetus Heart Rate Present A 140 B 145 Fetus Movement A No B No Comments Doing pretty well. N/V venus r. Still tired. MFM in 2 weeks. Anatomy there. Flowsheet Date 02/19/2023 Levin Score Blood Edema Fundus Height Fundus Units Glucose Ketones Leukocytes Nitrite Labor Signs Protein Cervic Dilation Cervic Effacement Cervic Station none trace Type Weight in lbs Pre/Post Dialysis Refused Weight 153.377386899976 BP Diastolic BP Location Tested BP Systolic BP Type 61 R arm 105 sitting Fetus Heart Rate Present A 144 B 147 Fetus Movement Comments Complains of medial thigh pa in, may be muscular. Has pain with abduction of legs. No changes in skin sensation. She Was given recommendations for conservative therapy. She has MFM follow-up in 2 weeks. We will see her In 4 weeks. Discussed cessation of smoking. Anxiety is stable. Asthma is stable Flowsheet Date 03/26/2023 Levin Score Blood Edema Fundus Height Fundus Units Glucose Ketones Leukocytes Nitrite Labor Signs Protein Cervic Dilation Cervic Effacement Cervic Station neg trace 32 none trace Type Weight in lbs Pre/Post Dialysis Refused Weight 165.780795161181 BP Diastolic BP Location Tested BP Systolic BP Type 64 98 Fetus Heart Rate Present A 135 B 125 Fetus Movement A Yes B Yes Comments Doing fine, getting uncomfor table. Doing labs for iron infusions today, then will set up. Still so tired, hoping this helps. GCT next. Discuss Tdap next. Precautions given, denies sx PTL. Flowsheet Date 04/17/2023 Levin Score Blood Edema Fundus Height Fundus Units Glucose Ketones Leukocytes Nitrite Labor Signs Protein Cervic Dilation Cervic Effacement Cervic Station neg trace 34 none trace Type Weight in lbs Pre/Post Dialysis Refused Weight 171.945990700821 BP Diastolic BP Location Tested BP Systolic BP Type 66 99 Fetus Heart Rate Present A 135 B 150 Fetus Movement A Yes B Yes Comments Doing ok. WOuld like belly b and. Has done 2 IV iron infusions so far. Still so tired. GCT today. DIscussed and encouraged Tdap. COmplains of sore lesion on right labia. She mentions that she was told once she has herpes via bloodwork but was unsure if she really had it. HSV PCR done of lesion, does appear to be herpetic, valtrex sent. Will schedule her for 38w. She would like sterilization with it. When questioned, she is certain. In fact, she never wanted children at all. She has not done well with control in the past. We discussed the risk of regret, especially at her young age, but she is certain she wants a bilateral salpingectomy with her CS. Will schedule. Flowsheet Date 04/23/2023 Levin Score Blood Edema Fundus Height Fundus Units Glucose Ketones Leukocytes Nitrite Labor Signs Protein Cervic Dilation Cervic Effacement Cervic Station Type Weight in lbs Pre/Post Dialysis Refused BP Diastolic BP Location Tested BP Systolic BP Type Fetus Heart Rate Present Fetus Movement Comments Flowsheet Date 05/02/2023 Levin Score Blood Edema Fundus Height Fundus Units Glucose Ketones Leukocytes Nitrite Labor Signs Protein Cervic Dilation Cervic Effacement Cervic Station neg none 39 none trace Type Weight in lbs Pre/Post Dialysis Refused Weight 173.197822717673 BP Diastolic BP Location Tested BP Systolic BP Type 75 118 Fetus Heart Rate Present A 140 B 130 Fetus Movement A Yes B Yes Comments Doing ok. More discomfort in pelvis, only rare contractions. Has one more IV iron. Will do Tdap. HSV lesion healed. GCT wnl. Has a tender cyst on buttock. Tender indurated nodule 3x10mm left buttock, no fluctuance, no erythema, no surrounding induration, possible HS tunnel, no signs of infection. Will do soaks, precautions given. Back to [facility] 05/18. Asking to move CS up to 34 or 35w. Discussed that we can only deliver earlier than 38w with medical indication that would likely come up last minute. Discussed risks of prematurity and benefits to babies of staying in utero until term. Support given. Flowsheet Date 05/16/2023 Levin Score Blood Edema Fundus Height Fundus Units Glucose Ketones Leukocytes Nitrite Labor Signs Protein Cervic Dilation Cervic Effacement Cervic Station neg trace 44 none trace Type Weight in lbs Pre/Post Dialysis Refused Weight 183.033191159628 BP Diastolic BP Location Tested BP Systolic BP Type 73 114 Fetus Heart Rate Present A 155 B 150 Fetus Movement A Yes B Yes Comments Doing well. Just reallly big and uncomfortable. Back to [facility] Sunday. Only a couple contractions per hour. Will send valtrex script to start around 34w. Also to start weekly visits at 34w. Flowsheet Date 06/04/2023 Levin Score Blood Edema Fundus Height Fundus Units Glucose Ketones Leukocytes Nitrite Labor Signs Protein Cervic Dilation Cervic Effacement Cervic Station Type Weight in lbs Pre/Post Dialysis Refused BP Diastolic BP Location Tested BP Systolic BP Type Fetus Heart Rate Present Fetus Movement Comments Flowsheet Date 06/04/2023 Levin Score Blood Edema Fundus Height Fundus Units Glucose Ketones Leukocytes Nitrite Labor Signs Protein Cervic Dilation Cervic Effacement Cervic Station Type Weight in lbs Pre/Post Dialysis Refused BP Diastolic BP Location Tested BP Systolic BP Type Fetus Heart Rate Present Fetus Movement Comments Flowsheet Date 06/04/2023 Levin Score Blood Edema Fundus Height Fundus Units Glucose Ketones Leukocytes Nitrite Labor Signs Protein Cervic Dilation Cervic Effacement Cervic Station neg none none trace Type Weight in lbs Pre/Post Dialysis Refused Weight 185.687263199768 BP Diastolic BP Location Tested BP Systolic BP Type 79 123 Fetus Heart Rate Present A 140 B 135 Fetus Movement B Yes Comments Doing ok. Itching a lot. Jus t increased ursodiol to 500 BID. Will recheck bile acids today. She is requesting 36w delivery because of itching and her mom is leaving on a cruise at 37.0w. We discussed that [facility] will unlikely approve this unless BAs very high or develops another complication, but we will ask. BPP 07/17 x2. Precautions given. Flowsheet Date 07/06/2023 Levin Score Blood Edema Fundus Height Fundus Units Glucose Ketones Leukocytes Nitrite Labor Signs Protein Cervic Dilation Cervic Effacement Cervic Station Type Weight in lbs Pre/Post Dialysis Refused Weight 150.915926909771 BP Diastolic BP Location Tested BP Systolic BP Type 83 125 Fetus Heart Rate Present Fetus Movement Comments Menstrual History Last Menstrual Date Menses Monthly On Bcp Conception Prior Menses Frequency Hcg Plus Date Menarche Onset Age 1210/02/2022 Genetic Screening And Infection History Question Response Note Mental Retardation/Autism false Patient's Age Will Be 35 Years Or Older At Estim ated Date of Delivery false Thalassemia (Egyptian, Faroese, Mediterranean, Or Background): MCV < 80 false Neural Tube Defect (Meningomyelocele, Spina Bifi da, Or Anencephaly) false Congenital Heart Defect false Down Syndrome false Ramon-Sachs (eg, Methodist, Cajun, Kazakh-Cambodian) f alse Jeremiah Disease false Sickle Cell Disease Or Trait () false Hemophilia Or Other Blood Disorders false Muscular Dystrophy false Cystic Fibrosis false [place]'s Chorea false Intellectual Disability/Autism false If Yes, Was Person Tested For Fragile X? false Other Inherited Genetic Or Chromosomal Disorder false Maternal Metabolic Disorder (eg, Type 1 Diabetes , PKU) false Patient Or Baby's Father Had A Child With Defects Not Listed Above false Recurrent Loss, Or A Stillbirth false Medications (including Suppl ements, Vitamins, Herbs, OTC Drugs), Illicit/Recreational Drugs, Alcohol false If Yes, Agent(s) And Strength/Dosage false Any Other Genetic History false Live With Someone With TB Or Exposed To TB false Patient Or Partner Has History Of Genital Herpes false Rash Or Viral Illness Since Last Menstrual Perio d false History Of STD, Gonorrhea, Chlamydia, HPV, Syphi lis false Other Infection History false History of HIV false History of Hepatitis false Prior GBS-infected child false Hemoglobinopathy Or Carrier false Other Structural Defect false Recent Travel History Outside of Country false Delivery Information Delivery Date Delivery Type Labor Anesthesia Weeks Gestation Incision Type Labor Labor Length Hrs Delivered By Post Complications Tubal Sterilization Discharge Date Comments 3 None [facility]al 36.3 Low Transvers e true Martinez Snyder MD true Anemia, Anxiety in , Asthma, Cholestas is of , Dichorion ic diamnioti c twin , Genital herpes simplex, Steriliza tion requested mild pre-e, labor Discharge Information Feeding Method Contraceptive Method Maternal HG B and HCT Levels
--- OUTSIDE RECORDS SUMMARY | 2025-02-14 12:34 | XMS_ITS | Clinical Summary ---
Author Organization [employer] Plans [facility] Address [address] [place] [address] Care Team Providers Care Dental Instructor Name Role Phone Unavailable Primary Care Provider Unavailabl e Allergies Active Allergy Reactions Criticality Noted Date Comments Morphine Nausea and Vomiting High 07/19/2020 Medications No known medications Social History Tobacco Use Types Packs/Day Years Used Date Smoking Tobacco: Never Assessed Comments Unknown Sex and Gender Information Value Date Recorded Sex Assigned at Not on file Legal Sex Female 6:36 PM CDT Gender Identity Not on file Sexual Orientation Not on file Plan of Treatment Health Maintenance Due Date Last Done Comments HPV VACCINES (1 - 3-dose series) 2013 DTAP/TDAP/TD VACCINES (1 - Tdap) 2017 HEPATITIS B VACCINES (1 of 3 - 19+ 3-dose series) 06/08 CERVICAL CANCER SCREENING 2019 HPV/Cotest (21-29) 2019 PAP SMEAR 2019 INFLUENZA VACCINE (#1) 2024
--- OUTSIDE RECORDS SUMMARY | 2025-02-14 12:34 | XMS_ITS | Encounter Summary ---
Author Organization [facility] Address [address] [place] [address] Phone Care Team Providers Care Tent Finisher Name Role Phone Oneyda Reed APRN, CNP Primary Care Provid er Reason for Visit * Reason Comments Medication Refill Encounter Details Date Type Department Care Team (Late st Contact Info) Description 06/29/2023 [facility]ill [facility] [address] [place] [address] Oneyda Reed APRN, CNP [address] [address] Medication Refill Social History Tobacco Use Types Packs/Day Years Used Date Smoking Tobacco: Former Cigarettes 1 2 0 05/21/2016 - 05/21/2018 Smokeless Tobacco: Never Comments:patient uses only J Aidinel smokind device Alcohol Use Standard Drinks/Week Comments [...] on file 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 Requested Prescriptions Pending Prescriptions Disp Refills sertraline (ZOLOFT) 50 MG Tablet [Pharmacy Med Name: SERTRALINE HCL 50 MG TABLET] 90 Tablet 1 Sig: TAKE 1 TABLET BY MOUTH EVERY DAY SSRI (6 Month Refill Only) Protocol Failed - 06/29/2023 12:43 AM Failed - Has an encounter in the past 6 months with a depression, anxiety, adjustment disorder, OCD, or PTSD visit diagnosis Passed - No test in the past 12 months or most recent test was negative Passed - No active on record Passed - Visit with relevant provider in past 6 months or upcoming 90 days Recent Visits Date Type Provider Dept 02/22/23 Office Visit Oneyda Reed APRN, CNP [facility] Showing recent visits within past 182 days and meeting all other requirements Future Appointments No visits were found meeting these conditions. Showing future appointments within next 90 days and meeting all other requirements Passed - Patient has established therapy with SSRI for at least 6 months documented in this encounter Plan of Treatment Not on file documented as of this encounter Visit Diagnoses Diagnosis Anxiety Anxiety state, unspecified documented in this encounter Additional Health Concerns Assessment Noted Time PHQ-9 Depression Total Score: 0 02/23/20 11:00 AM CDT documented as of this encounter Care Teams Tent Finisher Relationship Specialty Start Date End Date Oneyda Reed APRN, CNP #[address] [address] PCP - General Advanced Practice Nurse 02/20/22 documented as of this encounter
[2025-02-14 12:52] VITALS: BP 119/70; PULSE 64; RESP 16; TEMP 36.3; O2SAT 100
--- NOTE | 2025-02-14 12:56 | ECG_ITS ---
Test Date: 2025-02-14 13:01:25 Measurements Intervals [place] Rate: 60 P: 15 ND: 168 QRS: 83 QRSD: 86 T: 17 QT: 388 QTc: 389 Interpretive Statements SINUS RHYTHM No previous ECG available for comparison Electronically Signed On 02-14-2025 15:34:12 CDT by Sonny Berman M.D.
[2025-02-14 13:54] VITALS: BP 108/65; PULSE 60; RESP 16; O2SAT 100
--- NOTE | 2025-02-14 14:14 | ED.ANXIETY ---
HPI - Anxiety General Chief Complaint: Anxiety Stated Complaint: Panic attack-diarrhea Time Seen by Provider: 02/14/25 13:59 History of Present Illness HPI narrative: 84-year-old female with a history of appendectomy, tubal ligation, anxiety, IBS, GERD presents to the ED for multiple medical complaints. Patient states she mostly has been having increasing anxiety over the past 3 weeks and had a panic attack today. 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 She began to feel an increase in panic and anxiety with associated chest pain, shortness of breath and nausea. Patient does note that she recently got and came home from her honeymoon about 10 days ago from the [facility]. She has been under increased stress with life changes. States she takes sertraline 50 mg daily for anxiety and was recently diagnosed with ADHD a few months ago was started on guanfacine, no other medication changes. States she used to take hydroxyzine for anxiety with some improvement however it did make her drowsy. She is requesting something to take p.r.n. today. She is established with a counselor. Denies SI/HI. She also notes that she has had diarrhea today and nausea. She is reporting diffuse abdominal cramping, more so in her epigastrium. She does note history of GERD and gastritis and states she had a half pack of Hot Cheetos yesterday prior to the onset of sx. No vomiting or fevers. States she has had intermittent left-sided chest pain and shortness of breath. Denies cough, hemoptysis, lower extremity edema, history of VTE. She denies any international travel, recent surgeries or hospitalizations, but does endorse hx of IBS. Also endorsing urinary frequency. Denies dysuria. Related Data Home Medications ?Medication ?Instructions ?Recorded ?Confirmed ?Last Taken ?Type sertraline 50 mg tablet (Zoloft) 50 mg PO DAILY 04/12/23 08/18/24 06/24/23 History cetirizine 10 mg tablet (Zyrtec) 10 mg PO DAILY PRN Sinus Symptoms 07/29/24 08/18/24 Unknown History famotidine 20 mg tablet 20 mg PO DAILY 07/29/24 08/18/24 Unknown History Allergies Allergy/AdvReac Type Severity Reaction Status Date / Time morphine AdvReac Nausea Verified 02/14/25 13:55 Review of Systems Review of Systems: All systems reviewed & are unremarkable except as noted in HPI and below PMFSH Past Medical History Medical History Smoker Gastritis Depression Bronchitis Asthma Appendicitis Surgical History Surgical History History of laparoscopic appendectomy 07/29/24 H/O laparoscopy RT ovary had to be fixed per Marianne History of esophagogastroduodenoscopy (EGD) History of History of laparoscopy Family History Family History Father Heart disease Father , Heart problems Heart disease Mother Alive and well Social History Social History Years smoked: 4 Smoking status: Current every day smoker Tobacco type: e-cigarettes/vaping Second hand tobacco smoke exposure: No Additional smoking assessment comments: use to smoke 1 pack a day for 3 years. Alcohol intake: current Substance use: never Substance use type: does not use Do You Feel Safe in your Home?: Yes Lack of Transportation: No Lack of Food: Never True Current Housing: I Have Housing Concerned About Future Housing: No Difficulty Paying Gas/Electric Bills: No Difficulty Paying for Meds: No Currently Unemployed: No Education: High School Diploma/GED Difficulty w/ Childcare or Family Care: No Living arrangements: with family Occupation/Education: occupation Gender identity (if verbalized by the patient): Female Spiritual care concerns: No Exam Narrative: GENERAL: Well-appearing, well-nourished, and in no acute distress. HEAD: Normocephalic, atraumatic. EYES: PERRLA and EOMI. ENT: Nares clear, no rhinorrhea or epistaxis. Mucous membranes moist. NECK: Supple. CHEST: Clear to auscultation. No respiratory distress. HEART: Regular rate and rhythm. No murmur heard. Normal peripheral pulses. ABDOMEN: Normoactive bowel sounds. Abdomen soft with minimal tenderness in the epigastrium. No rebound or rigidity. No CVA tenderness. Negative Michelle sign. EXTREMITIES: Normal range of motion. No edema. Negative Homans bilaterally SKIN: Warm, dry, no rash. NEURO: No focal deficits. Alert and oriented x3 Course Vital Signs Vital signs: Vital Signs Temperature 97.3 F L 02/14/25 12:52 Pulse Rate 64 02/14/25 12:52 Respiratory Rate 16 02/14/25 12:52 Blood Pressure 119/70 02/14/25 12:52 Pulse Oximetry 100 02/14/25 12:52 Oxygen Delivery Room Air 02/14/25 12:52 Temperature 97.3 F L 02/14/25 12:52 Pulse Rate 57 L 02/14/25 14:23 Respiratory Rate 15 02/14/25 14:23 Blood Pressure 102/62 02/14/25 14:23 Pulse Oximetry 98 02/14/25 14:23 Oxygen Delivery Room Air 02/14/25 12:52 MDM - Anxiety MDM Narrative Medical decision making narrative: 24-year-old female with history of GERD/gastritis, IBS, anxiety presents to the emergency department for increasing anxiety over the past 3 weeks and panic attacks. Also reporting urinary frequency, nausea, diarrhea and diffuse abdominal cramping, and epigastric abdominal pain after eating hot Cheetos yesterday. Triage vitals are stable. Patient is afebrile nontoxic appearing. Exam significant for the above. CBC with nonspecific leukocytosis of 13.4, otherwise unremarkable. Chemistries are unremarkable with no electrolyte derangements, normal LFTs, normal lipase. UA unremarkable no hematuria or UTI. is negative. EKG shows normal sinus rhythm with rate of 60 ppm, normal ME interval, normal QRS duration, normal QTC, no ischemic changes. Troponin is undetectable. PERC rule for PE negative. Chest x-ray shows no acute cardiopulmonary findings. Patient was updated on results. She received GI cocktail, Pepcid and hydroxyzine with improvement. Suspect anxiety is source of worsening symptoms of IBS causing diarrhea, abdominal cramping and nausea, and sx of panic attack. Also suspect that she does or source of GERD symptoms which have responded well to GI cocktail and Pepcid. Patient will be discharged home with hydroxyzine, zofran and Pepcid and advised to follow-up closely with her PCP and counselor. Discussed strict ED return precautions. She is agreeable with the plan verbalized understanding. Discharged stable condition. Lab Data 02/14/25 14:43 02/14/25 14:43 Labs: Lab Results 02/14/25 02/14/25 Range/Units 14:26 14:43 WBC 13.4 H (4.5-10.0) K/mm3 RBC 4.45 (4.2-5.4) M/mm3 Hgb 12.2 (12.0-15.0) g/dL Hct 37.9 (37.0-47.0) % MCV 85.2 (80-100) fl MCH 27.4 (26-34) pg MCHC 32.2 (32-36) g/dl RDW 12.6 (11.5-14.5) % Plt Count 203 (150-375) k/mm3 MPV 10.3 (7.4-10.4) fl Immature Gran % (Auto) 0.5 (0-0.5) % Neut % (Auto) 87.5 H (45.5-73.1) % Lymph % (Auto) 9.5 L (18.3-44.2) % Glenn % (Auto) 2.3 L (2.6-8.5) % Eos % (Auto) 0.1 (0-4.4) % Baso % (Auto) 0.1 L (0.2-1.2) % Lymph # (Auto) 1.27 (0.9-3.2) K/mm3 Glenn # (Auto) 0.3 (0.1-0.6) K/mm3 Eos # (Auto) 0.0 (0-0.3) K/mm3 Baso # (Auto) 0.0 (0.0-0.1) K/mm3 Abs Immat Gran (auto) 0.07 H (0.00-0.031) K/mm3 Absolute Neuts (auto) 11.8 H (1.3-6.7) K/mm3 Absolute Nucleated RBC 0.000 (0.0-0.012) K/mm3 Nucleated RBC % 0.0 (0.0-0.2) % PT 13.2 (11.1-14.7) Seconds INR 1.0 APTT 30.8 (22.3-36.8) Seconds Sodium 138 (137-145) mmol/L Potassium 4.2 (3.4-5.0) mmol/L Chloride 105 (98-107) mmol/L Carbon Dioxide 23 (22-30) mmol/L Anion Gap 10 (4-12) mmol/L BUN 15 (7-17) mg/dL Creatinine 0.75 (0.7-1.0) mg/dL Estim Creat Clear Calc 89 ml/min Estimated GFR > 60 (59 - ) Glucose 102 (65-110) mg/dL Calcium 9.3 (8.4-10.2) mg/dL Total Bilirubin 0.5 (0.2-1.3) mg/dL AST 30 (14-36) U/L ALT 27 (6-35) U/L Alkaline Phosphatase 67 (38-126) U/L Troponin I < 0.012 (0.000-0.034) ng/mL Total Protein 8.0 (6.3-8.2) g/dL Albumin 4.7 (3.5-5.1) g/dL Lipase 47 (23-300) U/L Urine Color Yellow (Yellow) Urine Appearance Clear (Clear) Urine pH 6.0 (5.0-9.0) Ur Specific [place] 1.003 (1.001-1.035) Urine Protein Negative (Negative) mg/dL Urine Glucose (UA) Negative (Negative) mg/dL Urine Ketones Negative (Negative) mg/dL Ur Blood (Man) Negative (Negative) Urine Nitrate Negative (Negative) Urine Bilirubin Negative (Negative) Urine Urobilinogen 0.2 (<2.0) mg/dL Leukocyte Esterase Rfl Negative (Negative) MERARY/UL POC Urine HCG, Qual Negative (Negative) Discharge Plan Discharge Clinical Impression: Anxiety, GERD (gastroesophageal reflux disease), Atypical chest pain Patient Disposition: Home Condition: Stable Instructions: Antibiotic Form, Irritable Bowel Syndrome (DC), GERD (Gastroesophageal Reflux Disease) (DC), Anxiety (ED) Additional Instructions: You were evaluated in the emergency department for anxiety, panic attacks, nausea and diarrhea, heartburn, chest pain. Your workup here is reassuring. Your symptoms are consistent with anxiety and panic attacks which are likely worsening her IBS causing her nausea and diarrhea. Please continue taking the sertraline your prescribed by her primary and you can take hydroxyzine as needed for anxiety. I have also sent ondansetron to take as needed for nausea. Drink plenty of fluids and follow-up closely with her primary care provider and counselor. Return to the emergency department if you develop worsening or changing symptoms, thoughts of harming yourself or other people, or other concerning symptoms or Patient Language: Zambian Prescriptions: New ondansetron 4 mg tablet,disintegrating 4 mg PO Q8H Qty: 14 0RF famotidine 20 mg tablet 20 mg PO DAILY Qty: 14 0RF hydroxyzine HCl 25 mg tablet 25 mg PO QID PRN (Reason: anxiety) Qty: 14 0RF No Action sertraline [Zoloft] 50 mg Tablet 50 mg PO DAILY cetirizine [Zyrtec] 10 mg Tablet 10 mg PO DAILY PRN (Reason: Sinus Symptoms) famotidine 20 mg tablet 20 mg PO DAILY Follow-up/Referrals: PHYSICIAN NOT ON STAFF,NONSTAFF [Primary Care Provider] -
--- OUTSIDE RECORDS SUMMARY | 2025-02-14 14:15 | XMS_ITS | Clinical Summary ---
Author Organization [facility] Address [address] [place] [address] Phone Care Team Providers Care Store Operations Specialist Name Role Phone Oneyda Reed APRN, CNP [...] Type Department Care Team Description 01/27/20[facility] [address] [place] [address] Oneyda Reed APRN, CNP Medication Refill 12/27/2024 [facility] [address] [place] [address] Oneyda Reed APRN, CNP Medication Refill 12/25/2024 7:30 AM CDT Telemedicine [facility] [address] [place] [address] Oneyda Reed APRN, CNP Iron deficiency anemia, unspecified iron deficiency anemia type (Primary Dx); Vitamin D deficiency; Fatigue, unspecified type; Attention deficit disorder, unspecified type; Screening, lipid 12/24/2024 Travel 11/26/2024 Telephone [facility] [address] [place] [phone] Oneyda Reed APRN, CNP Anxiety; medication question 11/24/2024 2:30 PM TABLET COATER Office Visit [facility] [address] [place] [address] Oneyda Reed APRN, CNP Anxiety (Primary Dx); Sore throat Discharge Disposition: Discharged to home or Selfcare 11/24/2024 Travel from Last 3 Months Immunizations Immunization Administration Dates Next Due Covid-19, Mrna, Lnp-s, Pf, 3 0 Mcg/0.3 Ml Dose ([address]) 05/22/2021 DTAP VACCINE 02/04/2003, 0,03/03/1999,12/16,1998 HIB Meningococcal Combined Vaccine IM ,03/03/1999,1998,11/18 Hep A-hep B, Pediatric/adole scent (non-US) 05/23/2010,10/06/2009 Hepatitis B Vaccine, Pediatric/adolescent 03/03/1999,1998,1998 Hpv, Unspecified Formulation 05/13/2020 Human Papillomavirus (HPV) 9 -valent Vaccine 11/28/2021 Human Papillomavirus Vaccine (HPV), quadrivalent 05/13/2020 Inactivated Polio Vaccine 02/04/2003,03/2000,1998,11/18 Influenza Vaccine 08/24/2015 Influenza Vaccine,unspecifie d Formulation 08/24/2015 MMR Vaccine 02/04/2003,10/13/1999 Meningococcal Vaccine 08/24/2015,10/06/2009 Pneumococcal conjugate PCV20 , polysaccharide [id number] conjugate, adjuvant, PF 08/24/2022 TDAP Vaccine 01/18/2024,,05/13/2020,10/06,02/04/2003,10/13/1999,03/03/1999 ,1998,1998 Varicella Vaccine Live 10/06/2009,10/13/1999 Family History Medical History Relation Name Comments Cardiomyopathy Father Bhupendra Fox Congestive Heart Failure Father Bhupendra Fox Heart Attack Father Bhupendra Fox 21- first Heart attack Hypertension Father Bhupendra Fox Stroke Maternal Grandmother [place] Ski[place] Asthma Paternal Grandmother Shadia Fox Chronic Obstructive Pulmonary Disease Paternal Grandmother Shadia Fox Relation Name Status Comments Father Bhupendra Fox Maternal Grandmother [place] Ski[place] Paternal Grandmother Shadia Fox Sister Alive Social History Tobacco Use Types Packs/Day Years Used Date Smoking Tobacco: Former Cigarettes 1 2 0 05/21/2016 - 05/21/2018 Smokeless Tobacco: Never Tobacco Cessation:Counseling Given: Not Answered Comments:patient uses only Jewel smokind device Alcohol Use Standard Drinks/Week Comments No 0 (1 standard drink = 0.6 oz pur e alcohol) 1-2 per month [facility] Utilities Answer Date Recorded In the past 12 months has [employer], gas, oil, or water [email or web address] threatened to shut off services in your [...] often do you attend chur ch or islam services? 1 to 4 times per year 12/24/2024 Do you belong to any clubs o r organizations such as sabianist groups, unions, fraternal or athletic groups, or [...] Questions 1-9 0 11/08 [facility] [place] of Occupat ional Health - Occupational Stress [...] place to sleep or slept in a senior care (including now)? Patient declined 01/21/2024 Housing Stability [...] any time in the past [address] [facility], were you homeless or living in a senior care (including now)? No 12/24/2024 Education Answer Date Recorded What is the highest level of school you have completed or the highest degree you have received? GED or equivalent Sexually Active Control Partners Comments Yes Male Condom, None Male Comments No Sex and Gender Information Value Date Recorded Sex Assigned at Not on file Legal Sex Female 12:35 AM TABLET COATER Gender Identity Not on file Sexual Orientation Not on file Last Filed Vital Signs Vital Sign Reading Time Taken Comments Blood Pressure 100/72 11/24/2024 2:30 PM TABLET COATER Pulse 78 11/24/2024 2:30 PM TABLET COATER Temperature 36.6 C (97.9 F) 11/24/2024 2:30 PM TABLET COATER Respiratory Rate 16 11/24/2024 2:30 PM TABLET COATER Oxygen Saturation 100% 11/24/2024 2:30 PM TABLET COATER Inhaled Oxygen Concentration - - Weight 68.9 kg (152 lb) 11/24/2024 2:30 PM TABLET COATER Height 157.5 cm (5' 2 ) 11/24/2024 2:30 PM TABLET COATER Body Mass Index 27.8 11/24/2024 2:30 PM TABLET COATER Plan of Treatment Health Maintenance Due Date [...] STREP BY MOLECULAR Routine 11/24/2024 2:38 PM TABLET COATER Sore throat PATHOLOGY CYTOLOGY AUTHORIZATION REP Routine 09/20/2022 2:08 PM TABLET COATER Cervical cancer screening from Last 3 Months or Most Recently Relevant to Health Maintenance Results * POC GROUP A STREP BY MOLECULAR (11/24/2024 2:38 PM TABLET COATER) STREP A DNA Negative Negative, Invalid PROCEDURE CONTROL Valid 11/24/2024 2:38 PM TABLET COATER Oneyda Reed EYE DROPPER ASSEMBLER, EMERGENCY ROOM PHYSICIAN POINT OF CARE TESTIN G (MANUAL) Final Result * PATHOLOGY CYTOLOGY AUTHORIZATION REP (09/20/2022 2:08 PM TABLET COATER) SPECIMEN ADEQUACY Satisfactory for evaluation. Endocervical/transf ormation zone component is absent. 09/26/2022 8:15 AM TABLET COATER [facility] DESCRIPTIVE DIAGNOSIS NEGATIVE FOR INTRAEPITHELIAL LESIONS OR MALIGNANCY. 09/26/2022 8:15 AM TABLET COATER [facility] at 0815 TABLET COATER HPV Reflex if ASCUS? Yes 09/26/2022 8:15 AM TABLET COATER [facility] Automated Examination This sample was not evaluated by the automated imaging and review system due to technical and/or biologic factor(s). The case was screened, reviewed, and finalized by a juke box servicer and/or pathologist. 09/26/2022 8:15 AM TABLET COATER [facility] Disclaimer The PAP smear is a screening [...] 63 unless clinically indicated. 09/26/2022 8:15 AM TABLET COATER [facility] Other CERVIX UTERI STRUCTURE / Unknown Non-Phlebotomy Collection / Unknown 09/20/2022 2:08 PM TABLET COATER 09/20/2022 2:08 PM TABLET COATER us Beatrice Wray PAC PATHOLOGY/CYTOLOGY ORDER JEANNETTE Final Result [facility] [address] [place] [address], [place] from Last 3 Months or Most Recently Relevant to Health Maintenance Insurance MEDICAID [facility] Care Teams Store Operations Specialist Relationship Specialty Start Date End Date Oneyda Reed APRN, CNP [address] [address] PCP - General Advanced Practice Nurse 02/20/22
--- OUTSIDE RECORDS SUMMARY | 2025-02-14 14:15 | XMS_ITS | Clinical Summary ---
Author Organization [employer] [facility] Address [address] [place] [address] Care Team Providers Care Tug Boat Captain Name Role Phone Unavailable Primary Care Provider [...]
--- OUTSIDE RECORDS SUMMARY | 2025-02-14 14:15 | XMS_ITS | Encounter Summary ---
Author Organization [facility] Address [address] [place] [address] Phone Care Team Providers Care Liquid Waste Treatment Plant Operator Name Role Phone Rufus Londono PAC Primary Care Provider U navaildion Provider, Unknown Primary Care Provider Unavaila ble Rufus Londono PAC Primary Care Provider U navailable Oneyda Reed APRN, PANEL BUILDER Primary Care Provid er Reason for Visit * Reason Comments Medication Refill Encounter Details Date Type Department Care Team (Late st Contact Info) Description 04/28/2020 Refill [facility] [address] [place] [id number] Rufus Londono, MELANIE Medication Refill Social History [...] on file Legal Sex Female 12:35 AM IV TECHNICIAN Gender Identity Not on file Sexual Orientation Not on file documented as of this encounter Miscellaneous Notes * Telephone Encounter - Laure Bernstein RN - 05/03/2020 12:35 PM CDT Request for sertraline 25mg refused. Dose adjustment was made on 04/28/20 and a new rx was sent in for increased dosage. Pharmacy notified via [employer]. documented in this encounter Plan of Treatment Not on file documented as of this encounter Visit Diagnoses Not on filedocumented in this encounter Additional Health Concerns Assessment Noted Time PHQ-9 Depression Total Score: 0 10/17/19 2:00 PM IV TECHNICIAN documented as of this encounter Care Teams Liquid Waste Treatment Plant Operator Relationship Specialty Start Date End Date Rufus Londono, PAC PCP - General Physician Cardiac Care Nurse 10/17/19 09/16/20 Provider, Unknown UNKNOWN PCP - General 09/17/20 02/07/21 Rufus Londono, PAC PCP - General Physician Cardiac Care Nurse 02/08/21 02/19/22 Oneyda Reed APRN, PANEL BUILDER [address] [address] PCP - General Advanced Practice Nurse 02/20/22 documented as of this encounter
--- OUTSIDE RECORDS SUMMARY | 2025-02-14 14:15 | XMS_ITS | Encounter Summary ---
Author Organization [facility] Address [address] [place] [address] Phone Care Team Providers Care Social Media Coordinator Name Role Phone Oneyda Reed APRN, CNP Primary Care Provid er Reason for Visit * Reason Comments Medication Refill Encounter Details Date Type Department Care Team (Late st Contact Info) Description 01/09/2024 [facility]ill [facility] [address] [place] [address] Oneyda Reed APRN, CNP [address] [address] Medication Refill Social History Tobacco Use Types Packs/Day Years Used Date Smoking Tobacco: Former Cigarettes 1 2 0 05/21/2016 - 05/21/2018 Smokeless Tobacco: Never Comments:patient uses only [employer] smokind device Alcohol Use Standard Drinks/Week Comments [...] on file Legal 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
--- OUTSIDE RECORDS SUMMARY | 2025-02-14 14:15 | XMS_ITS | Clinical Summary ---
Author Organization [facility] [employer] Address [address] [place] [address] Care Team Providers Care Motorcoach Driver Name Role Phone Unavailable Primary Care Provider Unavailabl e Source Comments [facility],non-owned Affiliates and Associated Physician Practices is amultiple site organization consisting of ambulatory clinics and hospital sitesin [place], [place], [place] and [place]. This disclosure is being madepursuant to the Care Everywhere program and may not contain all information available regarding this patient. Last updated 18.[facility] [employer] Allergies Active Allergy Reactions Criticality Noted Date [...] Date Recorded PHQ2 TOTAL SCORE 1 10/09/2021 [facility] [place] of Occupat ional Health - Occupational Stress [...] place to sleep or slept in a penitentiary (including now)? No 06/10/2023 Comments No Sex [...] Group B PARAG 05/25/2023 12:54 PM CDT [facility]CRO[facility] Microbiology MISCELLANEOUS SAMPLES / Unknown Collection / Unknown 05/22/2023 1:35 PM CDT 05/22/2023 1:56 PM CDT us Abner Greenberg MD LAB - MICROBIOLOGY ORD ERABLES Final Result [facility] [address] [place], [place] [address], [facility] [phone] * HIV-1 HIV-2 AG/AB RFLX DIFFERENTIATION (01/26/2021 11:13 AM CDT) HIV-1 HIV-2 Antigen/Antib kev Negative Negative 01/28/2021 2:06 PM CDT [facility] [employer] ([facility]) Comment: The specimen was non-reactive for HIV-1 [...] Cellular and Tissue-Based Products (HCT/P). Performed by [facility], [address] [place] [address] [email or web address], Brooke Holguin MD, Lab. Director Blood BLOOD SPECIMEN / Unknown Venipuncture / Unknown 01/26/2021 11:13 AM CDT 01/26/2021 11:14 AM CDT Elsie Mccoy DIRECTOR TALENT-PRODUCT GRADER LAB - CHEMISTRY ORDER JEANNETTE Final Result [employer] ([facility]) [address] * HEPATITIS C ANTIBODY (01/26/2021 11:13 AM CDT) Interpretation Hepatitis C Antibody LANDON Negative Negative 01/28/2021 5:23 PM CDT [employer] ([facility]) Comment: INTERPRETIVE INFORMATION: Hepatitis C Virus Antibody [...] Index 0.03 IV 01/28/2021 5:23 PM CDT [employer] ([facility]) Comment: Performed by [facility], [address] [place] [address] [email or web address], Brooke Holguin MD, Lab. Director Blood BLOOD SPECIMEN / Unknown Venipuncture / Unknown 01/26/2021 11:13 AM CDT 01/26/2021 11:14 AM CDT Elsie Mccoy DIRECTOR TALENT-PRODUCT GRADER LAB - CHEMISTRY ORDER JEANNETTE Final Result [employer] ([facility]) [address] [place] [address], [facility] from Last 3 Months or Most Recently Relevant to Health Maintenance Insurance [facility] Member Subscriber Plan / Payer (Ef fective for All Dates) Name:Marianne Fox Relation to Subscriber:Self Name:MARIANNE FOX Payer ID:Not on file Group ID:Not on file Type:Medicaid [place] Address: [address] [id number] MEDICAID - OUT OF [facility] [place] [facility] SELF PAY NO INSURANCE Member Subscriber Plan / Payer (Ef fective for All Dates) Name:Marianne Fox Member ID:Not on file Relation to Subscriber:Not on file Name:MARIANNE FOX Subscriber ID:Not on file (Home) Address: [address] [place] [id number] Payer ID:Not on file Group ID:Not on file Type:Self Pay Address: [place], [place] [facility] Advance Directives * Full Code (Latest Code Status on File) Date Activated Date Inactivated Comments 05/25/2023 3:38 PM 05/27/2023 5:13 PM * Full Code Date Activated Date Inactivated Comments 05/22/2023 12:01 PM 05/23/2023 4:47 PM
--- OUTSIDE RECORDS SUMMARY | 2025-02-14 14:15 | XMS_ITS | Encounter Summary ---
Author Organization [facility] Address [address] [place] [address] Phone Care Team Providers Care Foot Miter Operator Name Role Phone Oneyda Reed APRN, CNP Primary Care Provid er Reason for Visit * Reason Comments Medication Refill Encounter Details Date Type Department Care Team (Late st Contact Info) Description 06/29/2023 [facility]ill [facility] [address] [place] [address] Oneyda Reed APRN, CNP [address] [address] Medication Refill Social History Tobacco Use Types Packs/Day Years Used Date Smoking Tobacco: Former Cigarettes 1 2 0 05/21/2016 - 05/21/2018 Smokeless Tobacco: Never Comments:patient uses only J [employer] smokind device Alcohol Use Standard Drinks/Week Comments [...] on file Legal Sex Female 12:35 AM BRACER Gender Identity Not on file Sexual Orientation [...] 02/22/23 Office Visit Oneyda Reed APRN, CNP [facility] Showing recent visits within past 182 days [...] documented as of this encounter Care Teams Foot Miter Operator Relationship Specialty Start Date End Date Oneyda Reed APRN, CNP [address] [phone] PCP - General Advanced Practice Nurse 02/20/22 documented as of this encounter
--- OUTSIDE RECORDS SUMMARY | 2025-02-14 14:16 | XMS_ITS | Encounter Summary ---
Author Organization [facility] Address [address] 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 No / Unsure 11/28/2021 9:28 AM HEAT TREATER HEAD documented as of this encounter Miscellaneous Notes * Telephone Encounter - Clau Ba RN - 11/30/2021 1:49 PM CST pantoprazole (PROTONIX) 40 MG Tablet Delayed Response 90 Tablet 0 11/28/2021 TREATER HEAD documented in this encounter Plan of Treatment Not on file documented as of this encounter Visit Diagnoses Diagnosis Gastroesophageal reflux disease, unspecified whether esophagitis present documented in this encounter Additional Health Concerns Assessment Noted Time PHQ-9 Depression Total Score: 6 02/11/20 21 1:00 PM CDT documented as of this encounter Care Teams Literacy Teacher Relationship Specialty Start Date End Date Rufus Londono PAC PCP - General Physician Ammonia Still Operator 02/08/21 02/19/22 Oneyda Reed APRN, CONCRETE FORM SETTER AND FINISHER #[address] [phone] PCP - General Advanced Practice Nurse 02/20/22 documented as of this encounter
[2025-02-14] MEDS: hydrOXYzine HCL 25 MG TABLET PO (14:22)
[2025-02-14 14:23] VITALS: BP 102/62; PULSE 57; RESP 15; O2SAT 98
[2025-02-14 14:28] LABS: BEDSIDEPREGUCG Negative (Negative)
[2025-02-14 14:33] LABS: Add Urine Microscopic? NO; Appearance Urine Clear (Clear); Bilirubin Urine Negative (Negative); Blood Urine Negative (Negative); Color Urine Yellow (Yellow); Glucose Urine UA Negative (Negative); Ketones Urine Negative (Negative); Leukocyte Esterase Ur Negative LEU/UL (Negative); Nitrate Urine Negative (Negative); Protein Urine Negative (Negative); Specific Grav Ur 1.003 (1.001-1.035); Urobilinogen Urine 0.2 mg/dL (<2.0)
[2025-02-14 14:49] LABS: Basophils Percent Auto 0.1 % (0.2-1.2); Eosinophils Percent Auto 0.1 % (0-4.4); Hematocrit 37.9 % (37.0-47.0); Hemoglobin 12.2 g/dL (12.0-15.0); Immature Granulocyte Absolute 0.07 K/mm3 (0.00-0.031); Immature Granulocyte Percent A 0.5 % (0-0.5); Lymphocytes Absolute Auto 1.27 K/mm3 (0.9-3.2); Lymphocytes Percent Auto 9.5 % (18.3-44.2); Mean Corpuscular HGB Conc 32.2 g/dl (32-36); Mean Corpuscular Hemoglobin 27.4 pg (26-34); Mean Corpuscular Volume 85.2 fl (80-100); Mean Platelet Volume 10.3 fl (7.4-10.4); Monocytes Absolute Auto 0.3 K/mm3 (0.1-0.6); Monocytes Percent Auto 2.3 % (2.6-8.5); Neutrophils Absolute Auto 11.8 K/mm3 (1.3-6.7); Neutrophils Percent Auto 87.5 % (45.5-73.1); Platelet Count Result 203 k/mm3 (150-375); Red Blood Count 4.45 M/mm3 (4.2-5.4); Red Cell Distribution Width 12.6 % (11.5-14.5); White Blood Count 13.4 K/mm3 (4.5-10.0)
[2025-02-14] MEDS: BELLADONNA ALK/PHENOB ELIX 10 ML, MAG HYDROX/ALUMINUM HYD/SIMETH 30 ML, LIDOCAINE 2% VI... PO (14:54)
[2025-02-14] MEDS: FAMOTIDINE 20 MG/2 ML VIAL IV PUSH (14:55)
[2025-02-14 14:59] LABS: Prothrombin Time 13.2 Seconds (11.1-14.7)
[2025-02-14 15:00] LABS: Alanine Aminotransferase 27 U/L (6-35); Albumin Level 4.7 g/dL (3.5-5.1); Alkaline Phosphatase 67 U/L (38-126); Anion Gap 10 mmol/L (4-12); Aspartate Amino Transferase 30 U/L (14-36); Bilirubin,Total 0.5 mg/dL (0.2-1.3); Blood Urea Nitrogen 15 mg/dL (7-17); Calcium 9.3 mg/dL (8.4-10.2); Carbon Dioxide 23 mmol/L (22-30); Chloride 105 mmol/L (98-107); Estimated CRCL calculation 89 ml/min; Estimated Glomerular Filt Rate > 60; Glucose 102 mg/dL (65-110); Lipase 47 U/L (23-300); Partial Thromboplastin Time 30.8 Seconds (22.3-36.8); Potassium 4.2 mmol/L (3.4-5.0); Sodium 138 mmol/L (137-145)
[2025-02-14 15:11] LABS: Troponin I < 0.012 ng/mL (0.000-0.034)
== END 2025-02-14 15:39 | disposition home or self-care (01) ==
PROVIDERS: Emergency Medicine; Emergency Provider Physician Assistant
DX: F41.9 Anxiety disorder, unspecified (principal); R07.89 Other chest pain; K21.9 Gastro-esophageal reflux disease without esophagitis; J45.909 Unspecified asthma, uncomplicated; F17.290 Nicotine dependence, other tobacco product, uncomplicated
CPT/HCPCS: 36415; 71045; 80053; 81003; 81025; 83690; 84484; 85025; 85610; 85730; 93005; 96374; 99284; A9270

== ENCOUNTER 2025-05-10 09:31 | Emergency (ER) | payer OTHER, SELFPAY ==
--- NOTE | ~2025-05-10 | CT_ITS ---
EXAMINATION: CT brain wo con DATE: 05/10/2025 11:09 INDICATION: Anterior headache and worsening nausea TECHNIQUE: Computed tomography (CT) of the head was performed without intravenous contrast. Sagittal and coronal reconstructions were performed. The mA was adjusted according to patient size. Iterative reconstruction technique was employed. The dose-length product was 605.33 mGy-cm. COMPARISON: None FINDINGS: No acute intracranial hemorrhage, acute infarction or abnormal extra axial fluid collection. Ventricl es are normal and symmetric. No mass/mass effect. The orbits, paranasal sinuses and mastoid air cells are normal. IMPRESSION: 1. Normal head CT. Reviewed, dictated and finalized at location A. IMPRESSION: 1. Normal head CT.
[2025-05-10 09:33] VITALS: BP 105/67; PULSE 77; RESP 16; TEMP 36.7; O2SAT 96
--- OUTSIDE RECORDS SUMMARY | 2025-05-10 09:34 | XMS_ITS | Clinical Summary ---
Author Organization [facility] [employer] Address [address] [place] [address] Care Team Providers Care Squeegee Tender Name Role Phone Unavailable Primary Care Provider Unavailabl e Source Comments [facility],non-owned Affiliates and Associated Physician Practices is amultiple site organization consisting of ambulatory clinics and hospital sitesin [place], [place], [place] and [place]. This disclosure is being madepursuant to the Care Everywhere program and may not contain all information available regarding this patient. Last updated 18.[facility] [employer] Allergies Active Allergy Reactions Criticality Noted Date [...] once daily 1 Active albuterol HFA (PROVENTIL;YVETTE RADAH;PROAIR) 108 (90 Base) MCG/ACT inhaler Inhale 2 [...] Date Recorded PHQ2 TOTAL SCORE 1 10/09/2021 [facility] [place] of Occupat ional Health - Occupational Stress [...] 7:21 PM CDT Height 160 cm (5' 3) 06/10/2023 7:21 PM CDT Body Mass Index 34.54 06/10/2023 7:21 PM CDT Plan of Treatment Health Maintenance Due Date Last Done Comments PNEUMOCOCCAL VACCINE (1 of 2 - PCV) 2017 PAP SMEAR 05/28/2023 05/28/2020 (Done Outside Per Patient) COVID-19 VACCINE (3 - season) 2024 06/12/2021, 05/22/2021 DEPRESSION SCREENING 10/08/2024 INFLUENZA VACCINE (#1) 2025 08/24/2015, 2014 DTAP/TDAP/TD VACCINES (8 - Td or Tdap) [...] Group B PARAG 05/25/2023 12:54 PM CDT [facility]CROBI[facility] Microbiology MISCELLANEOUS SAMPLES / Unknown Collection / Unknown 05/22/2023 1:35 PM CDT 05/22/2023 1:56 PM CDT us Abner Greenberg MD LAB - MICROBIOLOGY ORD ERABLES Final Result [facility] [address] [place], [place] [address], [facility] [phone] * HIV-1 HIV-2 AG/AB RFLX DIFFERENTIATION (01/26/2021 11:13 AM CDT) HIV-1 HIV-2 Antigen/Antib kev Negative Negative 01/28/2021 2:06 PM CDT [facility] [employer] ([facility]) Comment: The specimen was non-reactive for [...] Cellular and Tissue-Based Products (HCT/P). Performed by [facility], [address] [place] [address] www.[employer], Brooke Holguin MD, Lab. Director Blood BLOOD SPECIMEN / Unknown Venipuncture / Unknown 01/26/2021 11:13 AM CDT 01/26/2021 11:14 AM CDT Elsie Mccoy CULINARY SPECIALIST-MAIL COURIER LAB - CHEMISTRY ORDER JEANNETTE Final Result [facility] ([facility]) [address] * HEPATITIS C ANTIBODY (01/26/2021 11:13 AM CDT) Interpretation Hepatitis C Antibody LANDON Negative Negative 01/28/2021 5:23 PM CDT [employer] ([facility]) Comment: INTERPRETIVE INFORMATION: Hepatitis C Virus [...] Index 0.03 IV 01/28/2021 5:23 PM CDT [employer] ([facility]) Comment: Performed by [facility], [address] [place] [address] www.[employer], Brooke Holguin MD, Lab. Director Blood BLOOD SPECIMEN / Unknown Venipuncture / Unknown 01/26/2021 11:13 AM CDT 01/26/2021 11:14 AM CDT Elsie Mccoy CULINARY SPECIALIST-MAIL COURIER LAB - CHEMISTRY ORDER JEANNETTE Final Result [facility] ([facility]) [address] [place] [address], [facility] from Last 3 Months or Most Recently Relevant to Health Maintenance Insurance [facility] Member Subscriber Plan / Payer (Ef fective for All Dates) Name:Marianne Fox Relation to Subscriber:Self Name:MARIANNE FOX Payer ID:Not on file Group ID:Not on file Type:Medicaid [place] Address: [address] [id number] MEDICAID - OUT OF [facility] [place] - [place] [facility] SELF PAY NO INSURANCE Member Subscriber Plan / Payer (Ef fective for All Dates) Name:Marianne Fox Member ID:Not on file Relation to Subscriber:Not on file Name:MARIANNE FOX Subscriber ID:Not on file (Home) Address: [address] [place] [id number] Payer ID:Not on file Group ID:Not on file Type:Self Pay Address: [place], [place] [facility] Advance Directives * Full Code (Latest Code Status on File) Date Activated Date Inactivated Comments 05/25/2023 3:38 PM 05/27/2023 5:13 PM * Full Code Date Activated Date Inactivated Comments 05/22/2023 12:01 PM 05/23/2023 4:47 PM
--- OUTSIDE RECORDS SUMMARY | 2025-05-10 09:34 | XMS_ITS | Clinical Summary ---
Author Organization [employer] Address [address] [place] [address] Care Team Providers Care Land Surveying Manager Name Role Phone Unavailable Primary Care Provider [...] 2019 PAP SMEAR 2019 INFLUENZA VACCINE (#1) 2025
--- NOTE | 2025-05-10 09:47 | ED.HA ---
HPI - Headache General Chief Complaint: Headache Stated Complaint: headache Time Seen by Provider: 05/10/25 09:39 Source: patient Mode of arrival: ambulatory Limitations: no limitations History of Present Illness HPI Narrative: patient is a 24-year-old female with bilateral temporal headache for the past day. It started yesterday in fact and gradual onset. It is a sharp throbbing and constant pain. She can feel it into the eyes as well. Associated nausea. She does not typically get headaches. MD elicited complaint: headache Pertinent past history: other ( Negative) Onset (ago): day(s) (2) Onset description: gradually Location: right, left and temporal Severity: severe Pain scale (0-10): 9 Quality & Timing: throbbing and sharp Exacerbating factors: movement of head/neck, light and noise Relieving factors: nothing Context: occurred at rest and occurred with exertion/activity Associated symptoms: nausea, photophobia and sensitivity to sound Treatments prior to arrival: acetaminophen and ibuprofen Related Data Home Medications ?Medication ?Instructions ?Recorded ?Confirmed ?Last Taken ?Type cetirizine 10 mg tablet (Zyrtec) 10 mg PO DAILY PRN Sinus Symptoms 07/29/24 08/18/24 Unknown History guanfacine 1 mg tablet 1 mg PO DAILY 05/10/25 Unknown History sertraline 100 mg tablet 100 mg PO DAILY 05/10/25 Unknown History Allergies Allergy/AdvReac Type Severity Reaction Status Date / Time morphine AdvReac Nausea Verified 02/14/25 13:55 Review of Systems Review of Systems: All systems reviewed & are unremarkable except as noted in HPI and below Constitutional: Constitutional: Reports no additional constitutional complaints Eyes: Eyes: Reports no additional eye complaints ENT: Reports system reviewed and no additional complaints, except as documented Cardiovascular: Cardiovascular: Reports no additional cardiovascular complaints Respiratory: Respiratory: Reports no additional respiratory complaints Gastrointestinal: Gastrointestinal: Reports no additional gastrointestinal complaints Genitourinary: Genitourinary: Reports no additional female genitourinary complaints Musculoskeletal: Musculoskeletal: Reports no additional musculoskeletal complaints Integumentary/Breasts: Skin/Breast: Reports system reviewed and no additional complaints, except as docu Neurologic: Reports system reviewed and no additional complaints, except as documented Psychiatric: Psychiatric: Reports no additional psychiatric complaints Endocrine: Endocrine: Reports no additional endocrine complaints Hematologic/Lymphatic: Hematologic/Lymphatic: Reports no additional hematologic/lymphatic complaints Allergic/Immunologic: Allergic/Immunologic: Reports no additional allergic/immunologic complaints PMFSH Past Medical History Medical History Smoker Gastritis Depression Bronchitis Asthma Appendicitis Surgical History Surgical History History of laparoscopic appendectomy 07/29/24 H/O laparoscopy RT ovary had to be fixed per Marianne History of esophagogastroduodenoscopy (EGD) History of History of laparoscopy Family History Family History Father Heart disease Father , Heart problems Heart disease Mother Alive and well Social History Social History Years smoked: 4 Smoking status: Current every day smoker Tobacco type: e-cigarettes/vaping Second hand tobacco smoke exposure: No Additional smoking assessment comments: use to smoke 1 pack a day for 3 years. Alcohol intake: current Substance use: never Substance use type: does not use Do You Feel Safe in your Home?: Yes Lack of Transportation: No Lack of Food: Never True Current Housing: I Have Housing Concerned About Future Housing: No Difficulty Paying Gas/Electric Bills: No Difficulty Paying for Meds: No Currently Unemployed: No Education: High School Diploma/GED Difficulty w/ Childcare or Family Care: No Living arrangements: with family Occupation/Education: occupation Gender identity (if verbalized by the patient): Female Spiritual care concerns: No Exam Const: General: healthy appearing Nutritional Appearance: well nourished Orientation/consciousness: patient oriented x3 HENMT: Head: normal to inspection Ears: external ears normal Face/Nose/Sinus: Normal external nose present Eyes: Conjunctivae: conjunctivae normal Pupils: Equal, round and reactive pupils present EOM: EOMs intact bilaterally Neck: Neck: normal visual inspection Chest: Chest palpation & inspection: normal inspection of the chest Resp: Effort & Inspection: normal respiratory effort and not labored Auscultation: clear to auscultation bilaterally and no crackles Cardio: Rate: regular rate Rhythm: regular rhythm Heart sounds: no murmurs GI: Inspection: non-distended GI Palp: Yes Soft to palpation and No Tenderness to palpation present (GI) Auscultation: normal bowel sounds : General: Yes bladder normal to palpation Back/Spine/Pelvis: Back: no CVA tenderness Skin: General skin exam: normal color Rashes: no rashes Wounds: no wounds Neuro: General: patient oriented x3, moves all extremities, no meningeal signs, no focal motor deficits and CN's II-XI intact bilaterally Cranial nerves: Yes Nystagmus not present Speech: normal speech Gait exam (Neuro): Normal gait present Other: fast exam negative, GCS is 15, NIH is 0 Extrem: General: normal to inspection Psych: Mental Status: mental status grossly normal Affect: normal affect Attitude: cooperative Course Vital Signs Vital signs: Vital Signs Temperature 36.7 C 05/10/25 09:33 Pulse Rate 77 05/10/25 09:33 Respiratory Rate 16 05/10/25 09:33 Blood Pressure 105/67 05/10/25 09:33 Pulse Oximetry 96 05/10/25 09:33 Oxygen Delivery Room Air 05/10/25 09:33 Temperature 36.7 C 05/10/25 09:33 Pulse Rate 62 05/10/25 11:15 Respiratory Rate 18 05/10/25 11:15 Blood Pressure 95/52 L 05/10/25 11:15 Pulse Oximetry 97 05/10/25 11:15 Oxygen Delivery Room Air 05/10/25 11:15 MDM - Headache MDM Narrative Medical decision making narrative: patient is a 24-year-old female with a headache. She is not typically get headaches. We will do workup at this time of neurological variety. We will check urinalysis and U preg. Negative for meningitis signs to include fever and stiff neck which are all negative at this time. Patient wishes to go home at this time and we are done with our preliminary workup and treatment. We are at a stopping point as she is getting better at this time. She was warned of symptoms about meningitis and to come directly to the emergency room with any symptoms of stiff neck or fever and continued headache. Lab Data Attestation: I reviewed the patient's lab results. Labs: Lab Results 05/10/25 Range/Units 09:45 Urine Color Light yellow (Yellow) Urine Appearance Clear (Clear) Urine pH 8.0 (5.0-8.0) Ur Specific [place] 1.015 (1.010-1.020) Urine Protein Trace H (Negative) Urine Glucose (UA) Negative (Negative) Urine Ketones Negative (Negative) Ur Blood (Man) Trace-intact H (Negative) Urine Nitrate Negative (Negative) Urine Bilirubin Negative (Negative) Urine Urobilinogen 0.2 (0.2-1.0) mg/dL Leukocyte Esterase Rfl 2+ H (Negative) MERARY/UL Urine RBC 0-2 (0-2) /hpf Urine WBC 7-9 H (0-3) /hpf Ur Squamous Epith Cells Many H (Few) /hpf Urine Bacteria 1+ (None) /hpf Ur Oval Fat Bodies None (None) /lpf Urine Test Negative Imaging Data Attestation: I personally reviewed and interpreted this imaging study as follows: Radiologist's impression: CT scan of the head was negative for acute process Discharge Plan Discharge Clinical Impression: Acute UTI Cephalgia Qualifiers: Headache type: unspecified Headache chronicity pattern: unspecified pattern Intractability: not intractable Qualified Code(s): R51.9 - Headache, unspecified Patient Disposition: Home Condition: Stable Instructions: Antibiotic Form, Urinary Tract Infection in Women (DC), Acute Headache (ED) Additional Instructions: please follow-up with the primary doctor in the next week. Please return to the emergency room with any fever or stiff neck symptoms. Patient Language: Norwegian Prescriptions: New ciprofloxacin HCl [Cipro] 500 mg tablet 500 mg PO BID 7 Days Qty: 14 0RF No Action guanfacine 1 mg tablet 1 mg PO DAILY sertraline 100 mg tablet 100 mg PO DAILY cetirizine [Zyrtec] 10 mg Tablet 10 mg PO DAILY PRN (Reason: Sinus Symptoms) hydroxyzine HCl 25 mg tablet 25 mg PO QID PRN (Reason: anxiety) Qty: 14 0RF Follow-up/Referrals: UNKNOWN,DOCTOR [Primary Care Provider] - Time of Disposition: 11:42
[2025-05-10 09:54] LABS: Add Urine Microscopic? YES; Appearance Urine Clear (Clear); Glucose Urine UA Negative (Negative); Leukocyte Esterase Ur 2+ LEU/UL (Negative); Nitrate Urine Negative (Negative); Specific Grav Ur 1.015 (1.010-1.020)
[2025-05-10 09:59] LABS: Pregnancy On Board Control Positive
[2025-05-10] MEDS: SODIUM CHLORIDE 0.9% IV 1,000 ML 999 ML IV CONT (10:03)
[2025-05-10] MEDS: METOCLOPRAMIDE HCL INJ 10 MG/2 ML VIAL IV PUSH (10:07)
[2025-05-10] MEDS: KETOROLAC 30 MG/ML VIAL (*BKC) IV PUSH (10:09)
--- OUTSIDE RECORDS SUMMARY | 2025-05-10 10:15 | XMS_ITS | Clinical Summary ---
Author Organization [facility] [employer] Address [address] [place] [address] Care Team Providers Care Credit Verifier Name Role Phone Unavailable Primary Care Provider Unavailabl e Source Comments [facility],non-owned Affiliates and Associated Physician Practices is amultiple site organization consisting of ambulatory clinics and hospital sitesin [place], [place], [place] and [place]. This disclosure is being madepursuant to the Care Everywhere program and may not contain all information available regarding this patient. Last updated 18.[facility] [employer] Allergies Active Allergy Reactions Criticality Noted Date [...] Date Recorded PHQ2 TOTAL SCORE 1 10/09/2021 [facility] - Occupational Stress [...] place to sleep or slept in a nursing home (including now)? No 06/10/2023 Comments No Sex [...] Group B PARAG 05/25/2023 12:54 PM CDT [facility] MICROBIOLOGY Microbiology MISCELLANEOUS SAMPLES / Unknown Collection / Unknown 05/22/2023 1:35 PM CDT 05/22/2023 1:56 PM CDT us Abner Greenberg MD LAB - MICROBIOLOGY ORD ERABLES Final Result [facility] MICROBIOLOGY [address] [place], [place] [address], [facility] [phone] * HIV-1 HIV-2 AG/AB RFLX DIFFERENTIATION (01/26/2021 11:13 AM CDT) HIV-1 HIV-2 Antigen/Antib kev Negative Negative 01/28/2021 2:06 PM CDT [facility] [employer] ([facility]) Comment: The specimen was non-reactive for [...] Cellular and Tissue-Based Products (HCT/P). Performed by [facility], [address] [place] [address] [email or web address], Brooke Holguin MD, Lab. Director Blood BLOOD SPECIMEN / Unknown Venipuncture / Unknown 01/26/2021 11:13 AM CDT 01/26/2021 11:14 AM CDT Elsie Mccoy [facility] - CHEMISTRY ORDER JEANNETTE Final Result [facility] ([facility]) [address] * HEPATITIS C ANTIBODY (01/26/2021 11:13 AM CDT) Interpretation Hepatitis C Antibody LANDON Negative Negative 01/28/2021 5:23 PM CDT [facility] ([facility]) Comment: INTERPRETIVE INFORMATION: Hepatitis C Virus [...] Index 0.03 IV 01/28/2021 5:23 PM CDT [facility] ([facility]) Comment: Performed by [facility], [address] [place] [address] [email or web address], Brooke Holguin MD, Lab. Director Blood BLOOD SPECIMEN / Unknown Venipuncture / Unknown 01/26/2021 11:13 AM CDT 01/26/2021 11:14 AM CDT Elsie Mccoy [facility] - CHEMISTRY ORDER JEANNETTE Final Result [facility] ([facility]) [address] [place] [address], [facility] from Last 3 Months or Most Recently Relevant to Health Maintenance Insurance [facility] Member Subscriber Plan / Payer (Ef fective for All Dates) Name:Marianne Fox Relation to Subscriber:Self Name:MARIANNE FOX Payer ID:Not on file Group ID:Not on file Type:Medicaid [place] Address: [address] [id number] MEDICAID - OUT OF [facility] [place] - [place] [facility] SELF PAY NO INSURANCE Member Subscriber Plan / Payer (Ef fective for All Dates) Name:Marianne Fox Member ID:Not on file Relation to Subscriber:Not on file Name:MARIANNE FOX Subscriber ID:Not on file (Home) Address: [address] [place] [id number] Payer ID:Not on file Group ID:Not on file Type:Self Pay Address: [place], [place] [facility] Advance Directives * Full Code (Latest Code Status on File) Date Activated Date Inactivated Comments 05/25/2023 3:38 PM 05/27/2023 5:13 PM * Full Code Date Activated Date Inactivated Comments 05/22/2023 12:01 PM 05/23/2023 4:47 PM
--- OUTSIDE RECORDS SUMMARY | 2025-05-10 10:15 | XMS_ITS | Clinical Summary ---
Author Organization [employer] [facility] Address [address] [place] [address] Care Team Providers Care [place] Supervisor Name Role Phone Unavailable Primary Care Provider [...]
[2025-05-10 11:15] VITALS: BP 95/52; PULSE 62; RESP 18; O2SAT 97
--- NOTE | 2025-05-10 11:18 | PC.NURSE ---
Pt resting w/ lights off, DR Rice in to speak w/ pt about negative head CT, she c/o H/A pain at 8 on PS. Orders received, VSS.
[2025-05-10] MEDS: levETIRAcetam 1000MG/NACL100ML 1,000 MG/100 ML BAG 400 MG IVPB (11:25)
[2025-05-10 11:56] VITALS: BP 100/58; PULSE 70; RESP 18; TEMP 36.8; O2SAT 98
== END 2025-05-10 11:56 | disposition home or self-care (01) ==
PROVIDERS: Emergency Provider Emergency Medicine
DX: N39.0 Urinary tract infection, site not specified (principal); R51.9 Headache, unspecified; F17.290 Nicotine dependence, other tobacco product, uncomplicated; Z79.899 Other long term (current) drug therapy
CPT/HCPCS: 70450; 81001; 81025; 96361; 96374; 96375; 99284; J1200; J1885; J1953; J2765; J7030